=== PATIENT | female | born 1995 | race African-American/Black ===

== ENCOUNTER 2016-10-20 14:59 | Outpatient (CLI) | payer MEDICAID ==
--- NOTE | 2016-10-22 12:02 | Antepartum Discharge Summary ---
Antepartum DC Datetime Report Generated by CPN: 10/22/2016 12:00 DIET/ACTIVITY/RESTRICTIONS Diet: Regular (10/20/2016 15:52:Yenifer Camp, RNC) Activity: Normal Activity (10/20/2016 15:52:Yenifer Camp, RNC) Activity Restrictions: Nothing in Vagina - [place], Tampons, Douche (10/20/2016 15:52:Yenifer Camp, RNC) TEACHING/INSTRUCTIONS/REFERRALS Instructions Given To: patient and FOB (10/20/2016 15:52:Yenifer Camp, RNC) Instructions Understood: Patient Verbalized Understanding; Support Person Verbalized Understanding (10/20/2016 15:52:Yenifer Camp, RNC) Referrals: None (10/20/2016 15:52:Yenifer Dawkins, RNC) Educational Materials- Other: care notes reviewed and signed for kick counts (10/20/2016 15:52:Yenifer Camp, RNC) DISCHARGE INFORMATION Discharged AMA: No (10/20/2016 15:52:Yenifer Camp, RNC) Discharge Date/Time: 10/20/2016 15:45 (10/20/2016 15:52:Yenifer Camp, RNC) Discharged To: Home (10/20/2016 15:52:Yenifer Camp, RNC) Discharge Provider Name: Quentin Grey (10/20/2016 15:52:Yenifer Camp, RNC) Accompanied By: fob and daughter (10/20/2016 15:52:Yenifer Camp, RNC) Discharge Method: Ambulatory (10/20/2016 15:52:Yenifer Camp, RNC) Condition: Stable (10/20/2016 15:52:Yenifer Camp, RNC) FOLLOW UP INFORMATION Follow Up With: [facility] (10/20/2016 15:52:ANITA Granda) Follow Up On: As Scheduled (10/20/2016 15:52:ANITA Granda) Follow Up Phone Number: [facility] - (10/20/2016 15:52:ANITA Granda)
--- NOTE | 2016-10-22 12:02 | L&D Discharge Summary ---
OB Discharge Summary Datetime Report Generated by CPN: 10/22/2016 12:02 DISCHARGE DIAGNOSIS Diagnosis/Symptoms: Other Diagnoses/Symptoms Other: iup 34.1 twin gestation reactive NST Gestation: 34.1 Number of Babies in Womb: 2 Parity: 1 DIET/ACTIVITY/RESTRICTIONS Diet: Regular Activity: Normal Activity Activity Restrictions: Nothing in Vagina - [place], Tampons, Douche TEACHING/INSTRUCTIONS/REFERRALS Instructions Given To: patient and FOB Instructions Understood: Patient Verbalized Understanding; Support Person Verbalized Understanding Referrals: None Educational Materials- Other: care notes reviewed and signed for kick counts DISCHARGE INFORMATION Discharged AMA: No Discharge Date/Time: 10/20/2016 15:45 Discharged To: Home Discharge Provider Name: Quentin Grey Accompanied By: fob and daughter Discharge Method: Ambulatory Condition: Stable FOLLOW UP INFORMATION Follow Up With: [facility] Follow Up On: As Scheduled Follow Up Phone Number: [place] - Comments: Instructed patient to follow up as scheduled. Educated patient on how to do kick counts and to be evaluated if the babies aren't moving as much as normal. Patient verbalized understanding
--- NOTE | 2016-10-22 12:02 | L&D General Admission ---
General Admit Datetime Report Generated by CPN: 10/22/2016 12:01 INFORMATION Para: 1 (10/20/2016 15:52:Yenifer Camp, RNC) Baby, Number in Womb: 2 (10/20/2016 15:52:Yenifer Camp, RNC) CARE Height (in): 66 (10/20/2016 15:23:QS system process) Height (in): 66 (10/07/2016 15:45:QS system process) ALLERGIES Medication Allergies: No Known Allergies (10/20/2016) (10/20/2016 15:05:QS system process)
--- NOTE | 2016-10-22 12:02 | L&D Flow Sheet ---
LD Flowsheet Datetime Report Generated by CPN: 10/22/2016 12:01 Datetime: 10/20/2016 15:24 Provider Reviewed Strip: Yes (Yenifer Camp, RNC) Communication Communication: Provider Orders Received (Yenifer Camp, RNC) Communication Comments: H Que CNM on unit strip reviewed and noted as reactive. Discharge orders received (Yenifer Camp, RNC) Datetime: 10/20/2016 15:15 Patient Care I/O Interventions: Popsicle; Clear Liquids Given (Yenifer Camp, RNC) Datetime: 10/20/2016 15:14 NBP Sys/Janis/Mean (mmHg): 95 (QS system process) : 54 (QS system process) : 69 (QS system process) Pulse: 91 (QS system process) Respirations: 16 (Yenifer Camp, RNC) Temperature (F): 98.1 (Yenifer Camp, RNC) Temperature (C): 36.7 (QS system process) LaborFlag: Labor (QS system process) Datetime: 10/20/2016 15:09 Teaching Instructional Method: Demo; Verbal; Patient Instructed; Family/Support Person Instructed; Verbalized Understanding (ANITA Granda) Plan of Care: Plan of Care Discussed (ANITA Granda) Unit Routine: [place] to Room; Call [place]; Bed; Monitoring (ANITA Granda) Teaching Comments: poc for NST process, expected time requirement and outcomes discussed. Reviewed kick counts and history of movments and interventions to improve movement; adequate hydration, fno longer than 3 hours between meals and increased po and calorie intake requirements. Denies questions or concerns (ANITA Granda) Datetime: 10/20/2016 08:00 Vital Signs Stage of : Labor (Yenifer Camp, RNC)
--- NOTE | 2016-10-22 12:04 | Non Stress Test Report ---
Non Stress Test Datetime Report Generated by CPN: 10/22/2016 12:04 DEMOGRAPHIC EGA NST: 34.1 EGA NST: 32.2 INDICATION Indication for Study: Multiple Gestation MONITORING Monitor Explained: Monitor Explained; Test Explained; Patient Verbalized Understanding Time on Monitor: 10/20/2016 15:10 Time off Monitor: 10/20/2016 15:35 NST Duration: 25 NST Duration: 42 NST INTERVENTIONS NST Interventions: PO Hydration; Reposition Patient; Vibroacoustic Stim Physician Notified NST: Que, H BABY A: [id number] BABY A Movement : Present Contraction Frequency : irregular FHR Baseline : 135 Accelerations : 15X15 Decelerations : None Variability : Moderate 6-25bpm NST Review: Meets Criteria for Reactive NST NST Review and Verified By : CAMRON Martinez Results: Reactive BABY B Movement: Present FHR Baseline: 140 Accelerations: 15X15 Decelerations: None Variability: Moderate 6-25bpm NST Review: Meets Criteria for Reactive NST NST Results: Reactive NST COMMENTS NST Comments: care notes for kick counts reviewed and signed for kick counts NST REPORT Report Trigger: Send Report
--- NOTE | 2016-10-22 12:06 | Non Stress Test Report ---
Non Stress Test Datetime Report Generated by CPN: 10/22/2016 12:06 EGA NST: 34.1 Indication for Study: Multiple Gestation Monitor Explained: Monitor Explained; Test Explained; Patient Verbalized Understanding Time on Monitor: 10/20/2016 15:10 Time off Monitor: 10/20/2016 15:35 NST Duration: 25 NST Interventions: PO Hydration; Reposition Patient; Vibroacoustic Stim Physician Notified NST: Quentin Grey Movement : Present Contraction Frequency : irregular FHR Baseline : 135 Accelerations : 15X15 Decelerations : None Variability : Moderate 6-25bpm NST Review: Meets Criteria for Reactive NST NST Review and Verified By : Arthur Peng RN NST Results: Reactive Movement: Present FHR Baseline: 140 Accelerations: 15X15 Decelerations: None Variability: Moderate 6-25bpm NST Review: Meets Criteria for Reactive NST NST Results: Reactive NST Comments: care notes for kick counts reviewed and signed for kick counts Report Trigger: Send Report
--- NOTE | 2016-10-24 00:26 | Non Stress Test Report ---
Non Stress Test Datetime Report Generated by CPN: 10/24/2016 00:25 DEMOGRAPHIC EGA NST: 34.1 INDICATION Indication for Study: Multiple Gestation MONITORING Monitor Explained: Monitor Explained; Test Explained; Patient Verbalized Understanding Time on Monitor: 10/20/2016 15:10 Time off Monitor: 10/20/2016 15:35 NST Duration: 25 NST INTERVENTIONS NST Interventions: PO Hydration; Reposition Patient; Vibroacoustic Stim Physician Notified NST: Que, H BABY A Movement : Present Contraction Frequency : irregular FHR Baseline : 135 Accelerations : 15X15 Decelerations : None Variability : Moderate 6-25bpm NST Review: Meets Criteria for Reactive NST NST Review and Verified By : CAMRON Martinez Results: Reactive BABY B Movement: Present FHR Baseline: 140 Accelerations: 15X15 Decelerations: None Variability: Moderate 6-25bpm NST Review: Meets Criteria for Reactive NST NST Results: Reactive NST COMMENTS NST Comments: care notes for kick counts reviewed and signed for kick counts NST REPORT Report Trigger: Send Report
--- NOTE | 2016-10-24 04:49 | L&D Discharge Summary ---
OB Discharge Summary Datetime Report Generated by CPN: 10/24/2016 04:45 DISCHARGE DIAGNOSIS Diagnosis/Symptoms: Other Diagnoses/Symptoms Other: iup 34.1 twin gestation reactive NST Gestation: 35.4 Number of Babies in Womb: 2 Parity: 1 DIET/ACTIVITY/RESTRICTIONS Diet: Regular Activity: Normal Activity Activity Restrictions: Nothing in Vagina - Rico, Tampons, Douche TEACHING/INSTRUCTIONS/REFERRALS Instructions Given To: patient and FOB Instructions Understood: Patient Verbalized Understanding; Support Person Verbalized Understanding Referrals: None Educational Materials- Other: care notes reviewed and signed for kick counts DISCHARGE INFORMATION Discharged AMA: No Discharge Date/Time: 10/20/2016 15:45 Discharged To: Home Discharge Provider Name: Quentin Grey Accompanied By: fob and daughter Discharge Method: Ambulatory Condition: Stable FOLLOW UP INFORMATION Follow Up With: [facility] Follow Up On: As Scheduled Follow Up Phone Number: [facility] - Comments: Instructed patient to follow up as scheduled. Educated patient on how to do kick counts and to be evaluated if the babies aren't moving as much as normal. Patient verbalized understanding
== END 2016-10-20 15:45 | disposition home or self-care (01) ==
LOC: LC 14:59
PROVIDERS: ATTEND Obstetrics & Gynecology
PROC: 4A1HXCZ Monitoring of Products of Conception, Cardiac Rate, External Approach (ICD-10-PCS; principal; 2016-10-20)
DX: O30.003 Twin pregnancy, unspecified number of placenta and unspecified number of amniotic sacs, third trimester (principal); Z3A.34 34 weeks gestation of pregnancy
CPT/HCPCS: 59025

== ENCOUNTER 2016-10-24 00:21 | Inpatient (IN) | payer MEDICAID ==
[2016-10-24] MEDS ORDERED: PENICILLIN G-K 5 MILLION UNIT VIAL ONE (00:51)
[2016-10-24] MEDS ORDERED: MISOPROSTOL 0.2 MG TABLET ONE ×2 (00:51→01:07)
[2016-10-24] MEDS ORDERED: LIDOCAINE 1% INJ-PF (10 MG/ML) 30 ML SDV ONE ×2 (00:51→01:08)
[2016-10-24] MEDS ORDERED: OXYTOCIN/NORMAL SALINE 20 UNIT/1,000 ML RTUINJ ONE ×3 (00:52→02:35)
[2016-10-24] MEDS ORDERED: PENICILLIN G POTASSIUM 5,000,000 UNIT in DEXTROSE 5%-WATER 100 ML IV ONE (00:52)
[2016-10-24] MEDS ORDERED: PENICILLIN G-K 5 MILLION UNIT VIAL IV PRN ×2 (00:59→01:00)
[2016-10-24] MEDS: RINGERS SOLUTION,LACTATED 1,000 ML IV PRN ×2 (01:01→02:34)
[2016-10-24 01:03] LABS: APPEARANCE,URINE CLOUDY; BILIRUBIN,URINE NEGATIVE (NEGATIVE); GLUCOSE, URINE NEGATIVE (NEGATIVE); KETONES,URINE NEGATIVE (NEGATIVE); LEUKOCYTE ESTERASE,URINE TRACE (NEGATIVE); NITRITE,URINE NEGATIVE (NEGATIVE); PROTEIN,URINE NEGATIVE (NEGATIVE); URINE SPECIFIC GRAVITY 1.006; UROBILINOGEN,URINE NEGATIVE mg/dL (<2.0)
[2016-10-24] MEDS ORDERED: EPHEDRINE SULFATE INJ 50 MG/1 ML AMPULE ONE (01:07)
[2016-10-24] MEDS ORDERED: FENTANYL/BUPIVACAINE/NS/PF 200 MCG/100 ML RTUINJ EPI ONE (01:08)
[2016-10-24] MEDS ORDERED: BUPIVACAINE HCL 0.25 % INJ/PF (2.5 MG/1 ML) 30 ML VIAL ONE (01:08)
[2016-10-24 01:11] LABS: ABSOLUTE BASOPHILS # (AUTO) 0.1 10^3/uL (0.0-0.2); ABSOLUTE EOSINOPHILS # (AUTO) 0.1 10^3/uL (0.0-0.6); ABSOLUTE LYMPHOCYTES (AUTO) 2.5 10^3/uL (0.5-4.7); ABSOLUTE MONOCYTES (AUTO) 1.2 10^3/uL (0.1-1.4); ABSOLUTE NEUT (AUTO) 6.5 10^3/uL (1.7-8.2); BASOPHILS % (AUTO) 0.6 % (0-2); EOSINOPHILS % (AUTO) 0.6 % (0-6); HEMOGLOBIN 8.5 g/dL (12.0-15.5); HGB HCT DIFFERENCE -0.5; MEAN CORPUSCULAR HEMOGLOBIN 25.6 pg (27.0-33.4); MEAN CORPUSCULAR HGB CONC 32.9 g/dL (32.0-36.0); MEAN CORPUSCULAR VOLUME 78 fl (80-97); MONOCYTES % (AUTO) 11.3 % (3-13); RED BLOOD COUNT 3.33 10^6/uL (3.72-5.28); RED CELL DISTRIBUTION WIDTH 14.2 % (11.5-14.0); SEGMENTED NEUTROPHILS % (AUTO) 63.5 % (42-78); WHITE BLOOD COUNT 10.3 10^3/uL (4.0-10.5)
[2016-10-24] MEDS ORDERED: IBUPROFEN 800 MG TABLET ONE (02:35)
--- NOTE | 2016-10-24 03:17 | Delivery Summary ---
Del Sum A-C Datetime Report Generated by CPN: 10/24/2016 03:17 ADMISSION DATA Chief Complaint: Uterine Contractions; Suspected Ruptured Membranes Indication for Induction: Not Applicable Admission Impression: , Intrauterine ; Active Labor; Ruptured Membranes; Obstetrical Complication Admission Impression Comments: mono di twins Admit Provider Comments: Bowie Di twin males. Srom and active labor. GBS unknown for prophylaxis. Plan vaginal delivery DELIVERY PERSONNEL Delivery Doctor:: La Nena Boone MD Anesthesiologist:: Kaushal Gandhi MD REGIONAL AGRONOMIST:: Yoon Colmenares CRNA Labor and Delivery Nurse:: Martha Laughlin RNsign letterer Nurse:: Nilam Cary RN Nursery Nurse:: Samanta Mojica RN Nursery Nurse:: CAMRON Ninoub Tech/ASSISTANT STORE MANAGER OPERATIONS: [facility] [place] Professor Of Mathematics/ASSISTANT STORE MANAGER OPERATIONS: Nida Green, ST MATERNAL INFORMATION Delivery Anesthesia: Epidural Medications After Delivery: Pitocin Drip 20 Units/1000ml NSS; Other-Please Comment Meds After Delivery Comment: 0208- 1000 mcg cytotec per rectum Estimated Blood Loss (ml): 350 Maternal Complications: Precipitous Labor (<3hrs); Premature Rupture of Membranes Other Maternal Complications: premature labor Provider Comments: twin A male vtx twin B male vtx. no complications. twin B fht recorded continuously and follwed by sono for position. no complications. placenta spontaneously intact 3vc times 2 as single unit. infants to nicu for prematurity. LABOR SUMMARY EDC: 11/24/2016 00:00 No. Babies in Womb: 2 Attempted: No Labor Anesthesia: Epidural LABOR INFORMATION Reason for Induction: Not Applicable Onset of Labor: 10/23/2016 23:30 Complete Dilatation: 10/24/2016 01:45 Oxytocin: N/A Group B Beta Strep: unknown Antibiotics # of Doses: 1 Antibiotics Time of Last Dose: 005 Name of Antibiotic Given: Penicillin G Steroids Given: None Reason Steroids Not Administered: Not Applicable MEMBRANES Membranes Rupture Method: Spontaneous Rupture of Membranes: 10/23/2016 23:30 Length of Rupture (hr): 2.35 Amniotic Fluid Color: Clear Amniotic Fluid Amount: Small Amniotic Fluid Odor: Normal STAGES OF LABOR Stage 1 hr: 2 Stage 1 min: 15 Stage 2 hr: 0 Stage 2 min: 6 Stage 3 hr: 0 Stage 3 min: 13 Total Time in Labor hr: 2 Total Time in Labor min: 34 VAGINAL DELIVERY Episiotomy: None Laceration Extension: N/A Laceration Type: None Laceration Repair: Not Applicable Sponge Count Correct: Yes Sharps Count Correct: Yes CSECTION DELIVERY Primary Indication: N/A Secondary Indication: N/A BABY A INFORMATION Delivery Date/Time: 10/24/2016 01:51 Method of Delivery: Vaginal Born in Route : No : N/A Forceps: N/A Vacuum Extraction: N/A PRESENTATION/POSITION BABY A Presentation: Cephalic Cephalic Presentation: Vertex Vertex Position: Left Occipital Anterior Breech Presentation: N/A PLACENTA INFORMATION BABY A Placenta Delivery Time : 10/24/2016 02:04 Placenta Method of Delivery: Spontaneous Placenta Status: Delivered SCORES BABY A Heart Rate 1 min: >100 bpm Resp Effort 1 min: Good Cry Reflex Irritability 1 min: Grimace Muscle Tone 1 min: Some Flexion of Extremities Color 1 min: Body [place], Extremities Blue Resuscitation Effort 1 min: Tactile Stimulation SCORE 1 MIN: 7 Heart Rate 5 min: >100 bpm Resp Effort 5 min: Good Cry Reflex Irritability 5 min: Grimace Muscle Tone 5 min: Active Motion Color 5 min: Body [place], Extremities Blue SCORE 5 MIN: 8 INFANT INFORMATION BABY A Gestational Age at Delivery: 35.4 Gestational Status: Late - 34- 36.6 Weeks Outcome : Liveborn Condition : Stable Sex: Male IDENTIFICATION BABY A Verification Date/Time: 10/24/2016 01:55 ID Band Number: [id number] Mother's Name Verified: Yes Infant RN Verifying : ANITA Escobedo Additional Verifying Personnel: Huyen Cardona RN WEIGHT/LENGTH BABY A Infant Birthweight (gm): 2117 Infant Weight (lb): 4 Weight (oz): 11 Infant Length (in): 19.00 Infant Length (cm): 48.26 CORD INFORMATION BABY A No. Cord Vessels: 3 Nuchal Cord : N/A Cord Blood Taken: Yes-For Eval (Mom's Blood Type - or O+) Infant Suction: Mouth; Nose ASSESSMENT BABY A Infant Complications: Multiple Variable Decels Physical Findings at Delivery: Within Normal Limits Respirations: Appears Normal Skin to Skin: No Jewel Stripper/ALS Called : No Care By: CAMRON Mojica Transferred To: Nursery BABY B INFORMATION Delivery Date/Time: 10/24/2016 02:02 Method of Delivery : Vaginal Born in Route : No : N/A Forceps : N/A Vacuum Extraction: N/A Shoulder Dystocia : No SHOULDER DYSTOCIA BABY B Delivery Date/Time: 10/24/2016 02:02 PRESENTATION/POSITION BABY B Presentation : Cephalic Cephalic Position : Vertex Vertex Position: direct OP Breech Position: N/A ROM/PLACENTA INFO BABY B Rupture of Membranes: 10/24/2016 01:53 Length of Rupture (hr): 0.15 Placenta Delivery Time : 10/24/2016 02:04 Placenta Method of Delivery: Spontaneous Placental Status : Delivered SCORES BABY B Heart Rate 1 min: >100 bpm Resp Effort 1 min: Good Cry Reflex Irritability 1 min: Cough or Sneeze or Pulls Away Muscle Tone 1 min: Some Flexion of Extremities Color 1 min: Blue/Pale Resuscitation Effort 1 min: Tactile Stimulation SCORE 1 MIN: 7 Heart Rate 5 min: >100 bpm Resp Effort 5 min: Good Cry Reflex Irritability 5 min: Cough or Sneeze or Pulls Away Muscle Tone 5 min: Active Motion Color 5 min: Body [place], Extremities Blue Resuscitation Effort 5 min: Tactile Stimulation SCORE 5 MIN: 9 INFORMATION BABY B Gestational Age at Delivery: 35.4 Gestational Status : Late - 34- 36.6 Weeks Outcome : Liveborn Infant Condition : Stable Infant Sex : Male IDENTIFICATION BABY B Infant Verification Date/Time: 10/24/2016 02:05 ID Band Number : [id number] Mother's Name Verified: Yes RN Verifying Infant: R Raeann, RNC Additional Verifying Personnel: Huyen SommersCoinapultronny, RN WEIGHT/LENGTH BABY B Infant Birthweight (gm): 2280 Infant Weight (lb) : 5 Weight (oz): 0 Infant Length (in): 18.50 Length (cm): 46.99 CORD INFORMATION BABY B No. Cord Vessels : 3 Nuchal Cord : N/A Cord Blood Taken : Yes-For Eval (Mom's Blood Type -) Infant Suction : Mouth; Nose ASSESSMENT BABY B Complications : Multiple Variable Decels Physical Findings at Delivery: Within Normal Limits Respirations : Appears Normal Skin to Skin: No Jewel Stripper/ALS Called : No Infant Care By : CAMRON Padilla Transfer To: Nursery SIGNATURES Signature: with User ID: [email or web address]
[2016-10-24] MEDS ORDERED: ACETAMINOPHEN WITH CODEINE #3 TABLET PO PRN ×2 (03:41)
[2016-10-24] MEDS ORDERED: ZOLPIDEM TARTRATE 5 MG TABLET PO PRN (03:41)
[2016-10-24] MEDS ORDERED: MEASLES,MUMPS&RUBELLA VACC/PF 0.5 ML VIAL SUBCUT PRN (03:41)
[2016-10-24] MEDS ORDERED: OXYTOCIN/NORMAL SALINE 1,000 ML IV PRN (03:41)
[2016-10-24] MEDS ORDERED: DIBUCAINE 1% OINTMENT 28 GM TP PRN (03:41)
[2016-10-24] MEDS ORDERED: DIPH/PERTUSS(ACELL)/TETANUS VAC/PF 0.5 ML SYR (>=10YO) IM PRN (03:41)
[2016-10-24] MEDS ORDERED: BENZOCAINE/MENTHOL AEROSOL SPRAY 56 ML TOP PRN (03:41)
--- NOTE | 2016-10-24 04:37 | Admission Physical ---
Datetime Report Generated by CPN: 10/24/2016 04:37 CURRENT ADMISSION Hx Assessment: The History has been Reviewed and is Current Chief Complaint: Uterine Contractions; Suspected Ruptured Membranes Indication for Induction: Not Applicable Admit Impression- Other: mono di twins ALLERGIES Medication Allergies: No Medication Allergies: No Known Allergies (10/24/2016) Latex: No Latex Allergies Food Allergies: denies Environmental Allergies: denies OBSTETRICAL HISTORY EDC: 11/24/2016 00:00 : 2 Para: 1 Term: 1 : 0 SAB: 0 IAB: 0 Ectopic: 0 Livin Cesareans: 0 VBACs: 0 Gestational Diabetes: No Rh Sensitization: No Incompetent Cervix: No KIRA: No Infertility: No ART Treatment: No Uterine Anomaly: No IUGR: No Hx Previous C/S: No Macrosomia: No Hx Loss/Stillborn: No PIH: No Hx : No Placenta Previa/Abruption: No Depression/PP Depression: No PTL/PROM: Yes Post Hemorrhage: No Current Procedures: Ultrasound; NST Obstetrical History Comments: g1-Jul 2015, female, , precipitous delivery @ 37 weeks, one hour in labor, received iron transfusions g2- current , mono/di twins, PROM/PTL @ 35+4 weeks gestation SEE RECORDS Alcohol: No Marijuana : No Cocaine: No Other Illicit Drugs: No Cigarettes: Former Smoker. [id number] MEDICAL HISTORY Diabetes: No Blood Transfusion: No Pulmonary Disease (Asthma, TB): No Breast Disease: No Hypertension: No Clerk Surgery: No Heart Disease: No Hosp/Surgery: Yes Autoimmune Disorder: No Anesthetic Complications: No Kidney Disease: No Abnormal Pap Smear: No Neuro/Epilepsy: No Psychiatric Disorders: No Other Medical Diseases: Yes Hepatitis/Liver Disease: No Significant Family History: No Varicosities/Phlebitis: No Trauma/Violence : No Thyroid Dysfunction: No Medical History Comments: anemia received iron transfusion post delivery, x 1, with twins, INFECTIOUS HISTORY Gonorrhea: No Genital Herpes: No Chlamydia: No Tuberculosis: No Syphilis: No Hepatitis: No HIV/AIDS Exposure: No Rash or Viral Illness: No HPV: No PHYSICAL EXAM General: Normal HEENT: Deferred Neurologic: Deferred Thyroid: Deferred Heart: Normal Lungs: Normal Breast: Normal Back: Normal Abdomen: Normal Genitourinary Exam: Normal Extremities: Normal DTRs: Normal Pelvic Type: Adequate Vital Signs: Reviewed; Within Normal Limits VAGINAL EXAM Contraction Comments: q2-5 MEMBRANES Membranes: Ruptured FETUS A EGA: 35.4 FHR- Baseline: 140 Variability: Moderate 6-25bpm Accelerations: Absent Decelerations: None FHR Category: Category II FHR Comments: limited strip to interpret Presentation: Vertex Admit Comment: Nye Di twin males. Srom and active labor. GBS unknown for prophylaxis. Plan vaginal delivery FETUS B Monitoring: External US Variability: Moderate 6-25bpm Accelerations: none Decelerations: None FHR Category: Category II FHR Comments: limited strip to interpret Presentation: Vertex PLANS FOR LABOR AND DELIVERY Labor and Delivery: None Pain Management: Epidural Feeding Preference: Breast Benefit of Breast Feed Discussed: Yes Circumcision: Yes INFORMED CONSENT Signature: with User ID: [email or web address]
--- NOTE | 2016-10-24 04:48 | L&D General Admission ---
General Admit Datetime Report Generated by CPN: 10/24/2016 04:45 INFORMATION Patient Age: 20 (10/07/2016 14:36:QS system process) EDC: 11/24/2016 00:00 (10/07/2016 14:46:Nilam Cary RN) : 2 (10/07/2016 14:46:Melisa De Leon RN) Para: 1 (10/20/2016 15:52:ANITA Granda) Para: 1 (10/07/2016 16:01:Melisa De Leon RN) Para: 1 (10/07/2016 14:46:Melisa De Leon RN) Term: 1 (10/07/2016 14:46:ANITA Granda) : 0 (10/07/2016 14:46:ANITA Granda) Spontaneous Abortions: 0 (10/07/2016 14:46:ANITA Granda) Induced Abortions: 0 (10/07/2016 14:46:ANITA Granda) Livin (10/07/2016 14:46:Yenifer Dawkins [facility]) Cesareans: 0 (10/07/2016 14:46:Yenifer Dawkins [facility]) VBACs: 0 (10/07/2016 14:46:Yenifer Dawkins [facility]) Ectopic: 0 (10/07/2016 14:46:Yenifer Dawkins [facility]) Baby, Number in Womb: 2 (10/20/2016 15:52:Yenifer Dawkins [facility]) Baby, Number in Womb: 2 (10/07/2016 16:01:Melisa De Leon RN) CARE Primary Mutual Fund Accountant: [facility] (10/07/2016 14:46:ANITA Granda) Mutual Fund Accountant Other: Health Department (10/07/2016 14:46:Martha Laughlin RN) Adequate Care: No (10/07/2016 14:46:Martha Laughlin RN) Prepregnancy Weight (lb): 130 (10/07/2016 14:46:Martha Laughlin RN) Prepregnancy Weight (kg): 59.1 (10/07/2016 14:46:QS system process) Height (in): 68 (10/24/2016 04:35:QS system process) Height (in): 68 (10/24/2016 03:41:QS system process) Height (in): 66 (10/20/2016 15:23:QS system process) Height (in): 66 (10/07/2016 15:45:QS system process) ALLERGIES Medication Allergy: No (10/07/2016 14:46:Martha Laughlin RN) Medication Allergies: No Known Allergies (10/24/2016) (10/24/2016 03:41:QS system process) Medication Allergies: No Known Allergies (10/20/2016) (10/20/2016 15:05:QS system process) Medication Allergies: No Known Allergies (10/07/2016) (10/07/2016 15:36:QS system process) Latex Allergy: No Latex Allergies (10/07/2016 14:46:Martha Laughlin RN) Food Allergies: denies (10/07/2016 14:46:Martha Laughlin RN) Environmental Allergies: denies (10/07/2016 14:46:Martha Laughlin RN) COMMUNICATION Primary Language: Scottish (10/07/2016 14:46:Martha Laughlin RN) Medical Tx Preferred Language: Scottish (10/07/2016 14:46:Martha Laughlin RN) Scottish Communication Ability: Speaks Scottish; Reads Scottish (10/07/2016 14:46:Martha Laughlin RN) Communication Barrier(s): None (10/07/2016 14:46:Martha Laughlin RN) DEMOGRAPHICS Address: [address] [place] [id number] (10/07/2016 14:36:QS system process) Zipcode: [address] (10/07/2016 14:36:QS system process) Home (10/07/2016 14:36:QS system process) SSN: [id number] (10/07/2016 14:36:QS system process) Next of Kin Name: TIRSO MEJIA (10/07/2016 14:36:QS system process) Next of Kin (10/07/2016 14:36:QS system process) Next of Kin Relationship: MO (10/07/2016 14:36:QS system process) Date of : 1995 (10/07/2016 14:36:QS system process) Marital Status: Single (10/07/2016 14:36:QS system process) Sex: Female (10/07/2016 14:36:QS system process) Race: (10/07/2016 14:36:QS system process) Ethnicity: Non- or (10/07/2016 14:36:QS system process) Hindu: None (10/07/2016 14:36:QS system process) DRUG AND ALCOHOL USE Alcohol: No (10/07/2016 14:46:Martha Laughlin RN) Cigarettes: Former Smoker. [id number] (10/07/2016 14:46:Martha Laughlin RN) Marijuana: No (10/07/2016 14:46:Martha Laughlin RN) Cocaine: No (10/07/2016 14:46:Martha Laughlin RN) Other Illicit Drugs: No (10/07/2016 14:46:Martha Laughlin RN) VACCINE HISTORY Influenza Vaccine: Yes (10/07/2016 14:46:Martha Laughlin RN) Influenza Date: 2015 (10/07/2016 14:46:Martha Laughlin RN) Pneumococcal Vaccine: No (10/07/2016 14:46:Martha Laughlin RN) Tetanus Vaccine: Uncertain (10/07/2016 14:46:Martha Laughlin RN) Tdap Vaccine: Uncertain (10/07/2016 14:46:Martha Laughlin RN) Hepatitis B Vaccine: Yes (10/07/2016 14:46:Martha Laughlin RN) Chemical Equipment Controller: [facility] (10/07/2016 14:46:Martha Laughlin RN) Feeding Preference: Breast (10/07/2016 14:46:Martha Laughlin RN) Benefit of Breast Feed Discussed: Yes (10/07/2016 14:46:Martha Laughlin RN) Circumcision: Yes (10/07/2016 14:46:Martha Laughlin RN) Classes Attended: No (10/07/2016 14:46:Martha Laughlin RN) Tubal Ligation: No (10/07/2016 14:46:Martha Laughlin RN) Tubal Authorization Signed: N/A (10/07/2016 14:46:Martha Laughlin RN) Consent: N/A (10/07/2016 14:46:Martha Laughlin RN) Consent Signed: N/A (10/07/2016 14:46:Martha Laughlin RN) Pain Management Plans: Epidural (10/07/2016 14:46:Martha Laughlin RN) Plans for Labor and Delivery: None (10/07/2016 14:46:Martha Laughlin RN) Support Person: Sir (10/07/2016 14:46:Martha Laughlin RN) Support Person Relationship: (10/07/2016 14:46:Martha Laughlin RN) Cultural/Spritual Practice: No (10/07/2016 14:46:Martha Laughlin RN) Spir/Cult Dietary Needs: No (10/07/2016 14:46:Martha Laughlin RN) LIVING SITUATION/DISCHARGE PLAN Living Arrangements: House (10/07/2016 14:46:Martha Laughlin RN) Adequate Access to:: Electric; Heat; Refrigeration; Plumbing/Running water; Phone; Transportation (10/07/2016 14:46:Martha Laughlin RN) Discharge Manager Power Person: (10/07/2016 14:46:Martha Laughlin RN) Person to Help after Discharge: Sir (10/07/2016 14:46:Martha Laughlin RN) Currently Using Commun Resources: Yes (10/07/2016 14:46:Martha Laughlin RN) Specify Current Resource Used: medicaid (10/07/2016 14:46:Martha Laughlin RN) Outside Agency/Air Traffic Instructor: No (10/07/2016 14:46:Martha Laughlin RN) Car Seat for Discharge: Yes (10/07/2016 14:46:Martha Laughlin RN) Adoption Requested: No (10/07/2016 14:46:Martha Laughlin RN) Pt Contact w/infant Post : N/A (10/07/2016 14:46:Martha Laughlin RN) LABS Blood Type: O Positive (10/07/2016 14:46:Nilam Cary RN) Antibody Screen: negative (10/07/2016 14:46:Nilam Cary RN) Hemoglobin: 8.5 L (10/24/2016 00:56:QS system process) Hematocrit: 26.0 L (10/24/2016 00:56:QS system process) MCV: 78 L (10/24/2016 00:56:QS system process) Group Beta Strep: unknown (10/07/2016 14:46:Martha Laughlin RN) Gonorrhea: Negative (10/07/2016 14:46:Nilam Cary RN) Chlamydia: Negative (10/07/2016 14:46:Nilam Cary RN) RPR/VDRL: Nonreactive (10/07/2016 14:46:Nilam Cary RN) HIV Results: nonreactive (10/07/2016 14:46:Nilam Cary RN) Rubella: Non-Immune (10/07/2016 14:46:Nilam Cary RN) Varicella: Susceptible (10/07/2016 14:46:Nilam Cary RN) OB/PREVIOUS HISTORY Previous Procedures: Ultrasound; NST (10/07/2016 14:46:Martha Laughlin RN) Current Procedures: Ultrasound; NST (10/07/2016 14:46:Martha Laughlin RN) History of Previous : No (10/07/2016 14:46:Martha Laughlin RN) History of Gestational Diabetes: No (10/07/2016 14:46:Martha Laughlin RN) History of PIH: No (10/07/2016 14:46:Martha Laughlin RN) History of Incompetent Cervix: No (10/07/2016 14:46:Martha Laughlin RN) History of Placenta Previa/Abrup: No (10/07/2016 14:46:Martha Laughlin RN) History of Macrosomia: No (10/07/2016 14:46:Martha Laughlin RN) History of IUGR: No (10/07/2016 14:46:Martha Laughlin RN) History of Hemorrhage: No (10/07/2016 14:46:Martha Laughlin RN) History of Loss/Stillborn: No (10/07/2016 14:46:Martha Laughlin RN) History of : No (10/07/2016 14:46:Martha Laughlin RN) History of D (Rh) Sensitization: No (10/07/2016 14:46:Martha Laughlin RN) History Recurrent Loss/Stillborn: No (10/07/2016 14:46:Martha Laughlin RN) History Depression/PP Depression: No (10/07/2016 14:46:Martha Laughlin RN) History of Uterine Anomaly/KIRA: No (10/07/2016 14:46:Martha Laughlin RN) History of Infertility: No (10/07/2016 14:46:Martha Laughlin RN) History of ART Treatment: No (10/07/2016 14:46:Martha Laughlin RN) History of KIRA: No (10/07/2016 14:46:Martha Laughlin RN) Comments Obstetrical History: g1-Jul 2015, female, , precipitous delivery @ 37 weeks, one hour in labor, received iron transfusions g2- current , mono/di twins, PROM/PTL @ 35+4 weeks gestation (10/07/2016 14:46:Martha Laughlin RN) MEDICAL HISTORY Med Hx Diabetes: No (10/07/2016 14:46:Martha Laughlin RN) Med Hx Hypertension: No (10/07/2016 14:46:Martha Laughlin RN) Med Hx Heart Disease: No (10/07/2016 14:46:Martha Laughlin RN) Med Hx Autoimmune Disorder: No (10/07/2016 14:46:Martha Laughlin RN) Med Hx Kidney Disease/UTI: No (10/07/2016 14:46:Martha Laughlin RN) Med Hx Neurologic/Epilepsy: No (10/07/2016 14:46:Martha Laughlin RN) Med Hx Psychiatric Disorders: No (10/07/2016 14:46:Martha Laughlin RN) Med Hx Hepatitis/Liver Disease: No (10/07/2016 14:46:Martha Laughlin RN) Med Hx Varicosities/Phlebitis: No (10/07/2016 14:46:Martha Laughlin RN) Med Hx Thyroid Dysfunction: No (10/07/2016 14:46:Martha Laughlin RN) Med Hx Trauma/Violence: No (10/07/2016 14:46:Martha Laughlin RN) Med Hx Blood Transfusion: No (10/07/2016 14:46:Martha Laughlin RN) Med Hx Pulmonary (Asthma,TB): No (10/07/2016 14:46:Martha Laughlin RN) Med Hx Breast: No (10/07/2016 14:46:Martha Laughlin RN) Med Hx SR. MANAGER Surgery: No (10/07/2016 14:46:Martha Laughlin RN) Med Hx Hospitalization/Surgery: Yes (10/07/2016 14:46:Martha Laughlin RN) Med Hx Anesthetic Complications: No (10/07/2016 14:46:Martha Laughlin RN) Med Hx Abnormal Pap Smear: No (10/07/2016 14:46:Martha Laughlin RN) Other Medical Diseases: Yes (10/07/2016 14:46:Martha Laughlin RN) Med Hx Significant Family Hx: No (10/07/2016 14:46:Martha Laughlin RN) Details of Med/Surg Hx: anemia received iron transfusion post delivery, x 1, with twins, (10/07/2016 14:46:Martha Laughlin RN) INFECTIOUS HISTORY Inf Hx Gonorrhea: No (10/07/2016 14:46:Martha Laughlin RN) Inf Hx Chlamydia: No (10/07/2016 14:46:Martha Laughlin RN) Inf Hx Syphilis: No (10/07/2016 14:46:Martha Laughlin RN) Inf Hx HIV/AIDS: No (10/07/2016 14:46:Martha Laughlin RN) Inf Hx Human Papilloma Virus: No (10/07/2016 14:46:Martha Laughlin RN) Inf Hx Pt/Partner Genital Herpes: No (10/07/2016 14:46:Martha Laughlin RN) Inf Hx Tuberculosis/Exposure: No (10/07/2016 14:46:Martha Laughlin RN) Inf Hx Hepatitis B,C: No (10/07/2016 14:46:Martha Laughlin RN) Inf Hx Rash or Viral Illness: No (10/07/2016 14:46:Martha Laughlin RN) GENETIC HISTORY Gen Hx Age >=35 at AUDREY: No (10/07/2016 14:46:Martha Laughlin RN) Gen Hx Thalassemia: No (10/07/2016 14:46:Martha Laughlin RN) Gen Hx Congenital Heart Defect: No (10/07/2016 14:46:Martha Laughlin RN) Gen Hx Neural Tube Defect: No (10/07/2016 14:46:Martha Laughlin RN) Gen Hx Down's Syndrome: No (10/07/2016 14:46:Martha Laughlin RN) Gen Hx James-Sachs: No (10/07/2016 14:46:Martha Laughlin RN) Gen Hx Richard: No (10/07/2016 14:46:Martha Laughlin RN) Gen Hx Familial Dysautonomia: No (10/07/2016 14:46:Martha Laughlin RN) Gen Hx Sickle Cell Disease/Trait: No (10/07/2016 14:46:Martha Laughlin RN) Gen Hx Hemophilia/Blood Disorder: No (10/07/2016 14:46:Martha Laughlin RN) Gen Hx Muscular Dystrophy: No (10/07/2016 14:46:Martha Laughlin RN) Gen Hx Cystic Fibrosis: No (10/07/2016 14:46:Martha Laughlin RN) Gen Hx Huntingtons Chorea: No (10/07/2016 14:46:Martha Laughlin RN) Gen Hx Mental Retardation/Autism: No (10/07/2016 14:46:Martha Laughlin RN) Gen Hx Tested for Fragile X: No (10/07/2016 14:46:Martha Laughlin RN) Gen Hx Other Inher/Chromosomal: No (10/07/2016 14:46:Martha Laughlin RN) Gen Hx Maternal Metabolic DO: No (10/07/2016 14:46:Martha Laughlin RN) Gen Hx Pt Father or FOB Defect: No (10/07/2016 14:46:Martha Laughlin RN) Gen Hx Other Genetic History: No (10/07/2016 14:46:Martha Laughlin RN) Gen Hx Drugs/Meds since LMP: Yes (10/07/2016 14:46:Martha Laughlin RN) Gen Hx Medications: tylenol, vitamins, iron (10/07/2016 14:46:Martha Laughlin RN)
--- NOTE | 2016-10-24 04:48 | L&D Flow Sheet ---
LD Flowsheet Datetime Report Generated by CPN: 10/24/2016 04:45 Datetime: 10/24/2016 04:01 NBP Sys/Janis/Mean (mmHg): 137 (QS system process) : 63 (QS system process) : 90 (QS system process) Pulse: 75 (QS system process) Respirations: 16 (Martha Laughlin RN) Temperature (F): 100.0 (Martha Laughlin RN) Temperature (C): 37.8 (QS system process) Temperature Route: Oral (Martha Laughlin RN) Pain Scale: 0 (Martha Laughlin RN) Pain Presence: None/Denies (Martha Laughlin RN) Pain Type: N/A (Martha Laughlin RN) Datetime: 10/24/2016 03:48 NBP Sys/Janis/Mean (mmHg): 135 (QS system process) : 56 (QS system process) : 88 (QS system process) Pulse: 64 (QS system process) Datetime: 10/24/2016 03:33 NBP Sys/Janis/Mean (mmHg): 133 (QS system process) : 63 (QS system process) : 91 (QS system process) Pulse: 68 (QS system process) Datetime: 10/24/2016 03:18 NBP Sys/Janis/Mean (mmHg): 148 (QS system process) : 65 (QS system process) : 93 (QS system process) Pulse: 97 (QS system process) Datetime: 10/24/2016 03:03 NBP Sys/Janis/Mean (mmHg): 132 (QS system process) : 60 (QS system process) : 87 (QS system process) Pulse: 82 (QS system process) Respirations: 16 (Martha Laughlin, RN) Datetime: 10/24/2016 02:48 NBP Sys/Janis/Mean (mmHg): 134 (QS system process) : 61 (QS system process) : 88 (QS system process) Pulse: 100 (QS system process) Datetime: 10/24/2016 02:45 Stage of : Recovery (Martha Kossmann, RN) Datetime: 10/24/2016 02:44 NBP Sys/Janis/Mean (mmHg): 150 (QS system process) : 62 (QS system process) : 89 (QS system process) Pulse: 102 (QS system process) Datetime: 10/24/2016 02:30 Epidural Procedure Other: Cath Removed; Cath Intact (Martha Kossmann, RN) Datetime: 10/24/2016 02:19 NBP Sys/Janis/Mean (mmHg): 117 (QS system process) : 72 (QS system process) : 92 (QS system process) Pulse: 151 (QS system process) Datetime: 10/24/2016 02:15 Stage of : Recovery (Martha Laughlin RN) Pain Scale: 2 (Martha Laughlin RN) Pain Presence: Constant (Martha Laughlin RN) Pain Type: Ache (Martha Laughlin RN) Pain Location: Neck (Martha Laughlin RN) Pain Relief Measures: Comfort Measures (Annotations: heat pack to neck) (Martha Laughlin RN) Patient Care Comments: Patient arrived back in room from OR post delivery recovery started (aMrtha Laughlin RN) Datetime: 10/24/2016 02:02 Comments: delivery of viable baby boy (baby b), cord clamped and cut per protocol. infant immediately transfered to [facility] for evaluation (Martha Laughlin RN) Datetime: 10/24/2016 02:00 Monitor Mode: External US (Martha Matthieusmann, RN) FHR Baseline Rate : 155 (Martha Matthieusmann, RN) Variability: Moderate 6-25 bpm (Martha Kossmann, RN) Accelerations: None (Martha Kossmann, RN) Decelerations: Variable (Martha Kossmann, RN) Datetime: 10/24/2016 01:55 Monitor Mode: Palpation (Martha Matthieusmann, RN) Frequency (min): 2-3 (Martha Matthieusmann, RN) Quality: Strong (Martha Matthieusmann, RN) Duration (sec): 40-60 (Martha Kossmann, RN) Resting Tone (Palpate): Relaxed (Martha Matthieusmann, RN) Comments: ultrasound showed vertex position for baby b, ultrasound showed heart rate in the 140s (Martha Matthieusmann, RN) Datetime: 10/24/2016 01:51 Comments: delivery of viable male (baby a), cord clamped and cut per protocol. infant transfered immediately to [facility] for evaluation by nursery staff (Martha Laughlin RN) Datetime: 10/24/2016 01:50 Monitor Mode: External; Palpation (Martha Laughlin RN) Frequency (min): 1-2 (Martha Laughlin RN) Quality: Strong (Martha Laughlin RN) Duration (sec): 40-70 (Martha Laughlin RN) Resting Tone (Palpate): Relaxed (Martha Laughlin RN) Contraction Comments: pushing with contractions with coaching by staffing mgr and provider (Martha Laughlin RN) Monitor Mode: External US (Martha Laughlin RN) FHR Baseline Rate : 135 (Martha Laughlin RN) Variability: Moderate 6-25 bpm (Martha Laughlin RN) Decelerations: Variable (Martha Laughlin RN) Monitor Mode: External US (Martha Laughlin RN) FHR Baseline Rate : 125 (Martha Laughlin RN) Variability: Moderate 6-25 bpm (Martha Laughlin RN) Accelerations: 10X10 (Martha Laughlin RN) Decelerations: None (Martha Kossmann, RN) Datetime: 10/24/2016 01:45 Dilatation (cm): 10.0 (Martha Matthieusmann, RN) Effacement (%): 100 (Martha Kossmann, RN) Station: 3 (Martha Matthieusmann, RN) Exam by: Dr. Boone (Martha Kossmann, RN) Datetime: 10/24/2016 01:40 IV/Blood Work: New IV Bag Hung (Nilam Raeann, RN) Datetime: 10/24/2016 01:37 Additional Nursing Comments: Transferred to OR via bed. (Nilam Cary RN) Datetime: 10/24/2016 01:34 Monitor Mode: External (Hollie Emeka, RN) Frequency (min): 1-2 (Hollie Emeka, RN) Quality: Moderate to Strong (Hollie Emeka, RN) Duration (sec): 40-70 (Hollie Emeka, RN) Duration Criteria: Less than Two 120 Second Contractions (Hollie Emeka, RN) Pattern: Normal: <= 5 Contractions in 10 Minutes (Hollie Emeka, RN) Resting Tone (Palpate): Relaxed (Hollie Emeka, RN) Monitor Mode: External US (Hollie Emeka, RN) FHR Baseline Rate : 140 (Hollie Emeka, RN) Variability: Moderate 6-25 bpm (Hollie Emeka, RN) Accelerations: 10X10 (Hollie Emeka, RN) Decelerations: Variable (Hollie Emeka, RN) Patient Care Comments: To OR for imminent delivery (Martha Laughlin RN) Datetime: 10/24/2016 01:33 NBP Sys/Janis/Mean (mmHg): 104 (QS system process) : 56 (QS system process) : 72 (QS system process) Pulse: 100 (QS system process) LaborFlag: Labor (QS system process) Datetime: 10/24/2016 01:32 NBP Sys/Janis/Mean (mmHg): 114 (QS system process) : 58 (QS system process) : 79 (QS system process) Pulse: 89 (QS system process) LaborFlag: Labor (QS system process) Datetime: 10/24/2016 01:24 Epidural Procedure: Loading Dose (Martha Laughlin, RN) Epidural Procedure Other: Pump Started (Marthadharmesh Laughlin, RN) Datetime: 10/24/2016 01:23 Epidural Procedure: Cath Placed (Martha Matthieusmann, RN) Datetime: 10/24/2016 01:22 Pulse: 87 (QS system process) SpO2 (%): 91 (QS system process) Epidural Procedure: Cath Placed (Martha Kossmann, RN) LaborFlag: Labor (QS system process) Datetime: 10/24/2016 01:21 Pulse: 83 (QS system process) SpO2 (%): 100 (QS system process) LaborFlag: Labor (QS system process) Datetime: 10/24/2016 01:16 Pulse: 86 (QS system process) Pulse: 83 (QS system process) SpO2 (%): 94 (QS system process) SpO2 (%): 91 (QS system process) Procedure Verify: Correct Patient Identity; Correct Side and Site are Marked; Accurate Procedure Consent Form; Agreement on Procedure to be Done; Correct Patient Position (Martha Laughlin RN) Anesthesia Plans: Epidural (Martha Laughlin RN) Epidural Positioning: Sitting (Martha Laughlin RN) LaborFlag: Labor (QS system process) Datetime: 10/24/2016 01:15 Monitor Mode: External (Hollie Emeka, RN) Frequency (min): 1.5-2 (Hollie Emeka, RN) Quality: Moderate to Strong (Hollie Emeka, RN) Duration (sec): 40-50 (Hollie Emeka, RN) Duration Criteria: Less than Two 120 Second Contractions (Hollie Emeka, RN) Pattern: Normal: <= 5 Contractions in 10 Minutes (Hollie Emeka, RN) Resting Tone (Palpate): Relaxed (Hollie Emeka, RN) Anesthesia Comments: pt. sitting up for epidural (Hollie Emeka, RN) Datetime: 10/24/2016 01:14 Monitor Mode: External US (Hollie Emeka, RN) FHR Baseline Rate : 145 (Hollie Emeka, RN) Variability: Moderate 6-25 bpm (Hollie Emeka, RN) Accelerations: None (Hollie Emeka, RN) Decelerations: None (Hollie Emeka, RN) Procedure Type: epidiural (Martha Laughlin, RN) Anesthesia Comments: hiram at bedside, time out performed (Martha Laughlin, RN) Datetime: 10/24/2016 01:12 Dilatation (cm): 8.0 (Martha Qian, RN) Effacement (%): 90 (Marthadharmesh Laughlin, RN) Station: 0 (Marthadharmesh Laughlin, RN) Exam by: Dr. Boone (Martha Laughlin, RN) Datetime: 10/24/2016 01:10 NBP Sys/Janis/Mean (mmHg): 113 (QS system process) : 56 (QS system process) : 76 (QS system process) Pulse: 83 (QS system process) LaborFlag: Labor (QS system process) Datetime: 10/24/2016 01:08 Monitor Mode: External (Hollie Emeka, RN) Frequency (min): 1.5-2 (Hollie Emeka, RN) Quality: Moderate to Strong (Hollie Emeka, RN) Duration (sec): 40-50 (Hollie Emeka, RN) Duration Criteria: Less than Two 120 Second Contractions (Hollie Emeka, RN) Pattern: Normal: <= 5 Contractions in 10 Minutes (Hollie Emeka, RN) Resting Tone (Palpate): Relaxed (Hollie Emeka, RN) Monitor Mode: External US (Hollie Emeka, RN) FHR Baseline Rate : 145 (Hollie Emeka, RN) Variability: Moderate 6-25 bpm (Hollie Emeka, RN) Accelerations: None (Hollie Emeka, RN) Decelerations: None (Hollie Emeka, RN) Datetime: 10/24/2016 01:04 Anesthesia Comments: Dr Hiram notified and requested for epidural (Martha Kossmann, RN) Datetime: 10/24/2016 00:59 Antibiotics: Penicillin IV (Units) @ 5 million units (Hollie Emeka, RN) Datetime: 10/24/2016 00:58 IV/Blood Work: IV Bolus Started; IV Infusing per Order (Hollie Emeka, RN) Datetime: 10/24/2016 00:55 NBP Sys/Janis/Mean (mmHg): 104 (QS system process) : 54 (QS system process) : 74 (QS system process) Pulse: 73 (QS system process) Level of Consciousness: Fully Conscious (Martha Laughlin, CAMRON) DTR's/Clonus: DTRs 2+; No Clonus (Martha Luaghlin, CAMRON) Headache: Denies (Martha Laughlin, CAMRON) Breath Sounds, Left: Clear and Equal (Martha Laughlin RN) Breath Sounds, Right: Clear and Equal (Martha Laughlin, CAMRON) Nausea/Vomiting: Denies (Martha Laughlin RN) RUQ Epigastric Pain: Denies (Martha Laughlin RN) LaborFlag: Labor (QS system process) Datetime: 10/24/2016 00:50 Communication Comments: Dr. Boone notified of imminent delivery (Martha Laughlin, CAMRON) Datetime: 10/24/2016 00:45 Dilatation (cm): 5.0 (Martha Laughlin RN) Effacement (%): 90 (Martha Laughlin RN) Station: 0 (Martha Laughlin RN) Exam by: CAMRON Laughlin (Martha Laughlin RN)
--- NOTE | 2016-10-24 04:48 | L&D Current Admission ---
Current Admit Datetime Report Generated by CPN: 10/24/2016 04:45 ADMISSION INFORMATION Current Admit Date/Time: 10/24/2016 00:54 (10/24/2016 00:54:Martha Laughlin RN) Reason for Admission: Rupture of Membranes (10/24/2016 00:54:Martha Laughlin RN) Other Reason for Admission: [place]/Di twins vertex/vertex SROM @ 2330 (10/24/2016 00:54:Martha Laughlin RN) Chief Complaint: Suspected Rupture of Membranes (10/24/2016 00:54:Martha Laughlin RN) Medications During : Ferrous Sulfate (Iron); Vitamin; Acetaminophen (Tylenol) (10/24/2016 00:54:Martha Laughlin RN) EGA per Dates: 35.4 (10/24/2016 00:54:QS system process) Method of Arrival: Wheelchair (10/24/2016 00:54:Martha Laughlin RN) Admitted From: Home (10/24/2016 00:54:Martha Laughlin RN) Reason for Induction: Not Applicable (10/24/2016 00:54:Martha Laughlin RN) Records Available: Yes (10/24/2016 00:54:Martha Laughlin RN) General Admission Information: Reviewed (10/24/2016 00:54:Martha Laughlin RN) General Admission Reviewed By: CAMRON Laughlin (10/24/2016 00:54:Martha Laughlin RN) BELONGINGS/ADVANCED DIRECTIVES Other Belongings: see valuable consents (10/24/2016 00:54:Martha Laughlin RN) Disposition of Belongings: Kept with Patient (10/24/2016 00:54:Martha Laughlin RN) Advance Direct for Healthcare: No, and Wants No Information (10/24/2016 00:54:Martha Laughlin RN) Durable Power of Returning Officer: No (10/24/2016 00:54:Martha Laughlin RN) Living Will: No (10/24/2016 00:54:Martha Laughlin RN) Organ Donor: Yes (10/24/2016 00:54:Martha Laughlin RN) Pt Rights Information Given: Yes (10/24/2016 00:54:Martha Laughlin RN) Pt Understands Pt Rights: Yes (10/24/2016 00:54:Martha Laughlin RN) Patient Rights Comments: Given in patient access (10/24/2016 00:54:Martha Laughlin RN) LEARNING ASSESSMENT Knowledge Level: Understands L_D Process; Understands Care Activities; Had Pre-Hospital Education; Understands Diagnosis (10/24/2016 00:54:Martha Laughlin RN) Barriers to Learning: Pain (10/24/2016 00:54:Martha Laughlin RN) Learning Readiness: Motivated (10/24/2016 00:54:Martha Laughlin RN) Learns Best By: 1 to 1 Instruction; Reading; Videos; Group Discussion; Demonstration (10/24/2016 00:54:Martha Laughlin RN) Learning Needs: Labor and Delivery Process; Pain Management; Symptoms to Report; Treatment Plan; Medication; Diagnosis; Nutrition; Equipment; Care; Community Resources (10/24/2016 00:54:Martha Laughlin RN) DOMESTIC VIOLANCE SCREENING Dom Viol Threatened/Hurt: No (10/24/2016 00:54:Martha Laughlin RN) Hx of Abuse/Neglect past 2yrs: No (10/24/2016 00:54:Martha Laughlin RN) Feel Unsafe Going Home: No (10/24/2016 00:54:Martha Laughlin RN) Addt'l Observ Indicating Abuse: No (10/24/2016 00:54:Martha Laughlin RN) Reason Unable to Complete Screen: No Opportunity to Talk Privately (10/24/2016 00:54:Martha Laughlin RN) Considered Personal Harm/Suicide: No (10/24/2016 00:54:Martha Laughlin RN) NUTRITIONAL/FUNCTIONAL SCREENING Problem with Appetite >5 Days: No (10/24/2016 00:54:Martha Laughlin RN) Chew/Swallow Difficulties: No (10/24/2016 00:54:Martha Laughlin RN) Inappropriate Wt Gain/Loss: No (10/24/2016 00:54:Martha Laughlin RN) Presence Skin Breakdown/Ulcer: No (10/24/2016 00:54:Martha Laughlin RN) Special Diet: No (10/24/2016 00:54:Martha Laughlin RN) Pt Requests Banking 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 Visit: No (10/24/2016 00:54:Martha Laughlin RN) Hx of Any of the Following?: N/A (10/24/2016 00:54:Martha Laughlin RN) New Diagnosis of: N/A (10/24/2016 00:54:Martha Laughlin RN) Requires Assist w/Ambulation: No (10/24/2016 00:54:Martha Laughlin RN) Uses Assist Device to Ambulate: No (10/24/2016 00:54:Martha Laughlin RN) Pt Requires Help w/ADL's: No (10/24/2016 00:54:Martha Laughlin RN)
--- NOTE | 2016-10-24 04:49 | L&D Admission Assessment ---
LD ADM ASMT Datetime Report Generated by CPN: 10/24/2016 04:45 Assessment Type: Admission Assessment (10/24/2016 00:55:Martha Laughlin RN) Weight (lb): 145 (10/24/2016 03:41:QS system process) Weight (kg): 65.9 (10/24/2016 03:41:QS system process) Total Wt Gain (lb): 15 (10/24/2016 03:41:QS system process) Wt Gain (kg): 6.9 (10/24/2016 03:41:QS system process) BMI: 23.4 (10/24/2016 03:41:QS system process) Pain Scale: 0 (10/24/2016 04:01:Martha Laughlin RN) Pain Scale: 2 (10/24/2016 02:15:Martha Laughlin RN) Pain Presence: None/Denies (10/24/2016 04:01:Martha Laughlin RN) Pain Presence: Constant (10/24/2016 02:15:Martha Laughlin RN) Pain Type: N/A (10/24/2016 04:01:Martha Laughlin RN) Pain Type: Ache (10/24/2016 02:15:Martha Laughlin RN) Pain Location: Neck (10/24/2016 02:15:Martha Laughlin RN) Frequency (min): 2-3 (10/24/2016 01:55:Martha Laughlin RN) Frequency (min): 1-2 (10/24/2016 01:50:Martha Laughlin RN) Frequency (min): 1-2 (10/24/2016 01:34:Hollie Emeka, RN) Frequency (min): 1.5-2 (10/24/2016 01:15:Hollie Emeka, RN) Frequency (min): 1.5-2 (10/24/2016 01:08:Hollie Emeka, RN) Duration (sec): 40-60 (10/24/2016 01:55:Martha Laughlin, RN) Duration (sec): 40-70 (10/24/2016 01:50:Martha Laughlin, RN) Duration (sec): 40-70 (10/24/2016 01:34:Hollie Emeka, RN) Duration (sec): 40-50 (10/24/2016 01:15:Hollie Emeka, RN) Duration (sec): 40-50 (10/24/2016 01:08:Hollie Emeka, RN) Quality: Strong (10/24/2016 01:55:Martha Laughlin RN) Quality: Strong (10/24/2016 01:50:Martha Laughlin, RN) Quality: Moderate to Strong (10/24/2016 01:34:Hollie Emeka, RN) Quality: Moderate to Strong (10/24/2016 01:15:Hollie Emeka, RN) Quality: Moderate to Strong (10/24/2016 01:08:Hollie Emeka, RN) Pattern: Normal: <= 5 Contractions in 10 Minutes (10/24/2016 01:34:Hollie Emeka, RN) Pattern: Normal: <= 5 Contractions in 10 Minutes (10/24/2016 01:15:Hollie Emeka, RN) Pattern: Normal: <= 5 Contractions in 10 Minutes (10/24/2016 01:08:Hollie Emeka, RN) Resting Tone [place]: Relaxed (10/24/2016 01:55:Martha Laughlin, RN) Resting Tone [place]: Relaxed (10/24/2016 01:50:Martha Laughlin, RN) Resting Tone [place]: Relaxed (10/24/2016 01:34:Hollie Emeka, RN) Resting Tone [place]: Relaxed (10/24/2016 01:15:Hollie Emeka, RN) Resting Tone [place]: Relaxed (10/24/2016 01:08:Hollie Hendrickson RN) Contraction Comments: pushing with contractions with coaching by social staff worker and provider (10/24/2016 01:50:Martha Laughlin RN) Dilatation (cm): 10.0 (10/24/2016 01:45:Martha Laughlin RN) Dilatation (cm): 8.0 (10/24/2016 01:12:Martha Laughlin RN) Dilatation (cm): 5.0 (10/24/2016 00:45:Martha Laughlin RN) Effacement (%): 100 (10/24/2016 01:45:Martha Laughlin RN) Effacement (%): 90 (10/24/2016 01:12:Martha Laughlin RN) Effacement (%): 90 (10/24/2016 00:45:Martha Laughlin RN) Station: 3 (10/24/2016 01:45:Martha Laughlin RN) Station: 0 (10/24/2016 01:12:Martha Laughlin RN) Station: 0 (10/24/2016 00:45:Martha Laughlin RN) Level of Consciousness: Fully Conscious (10/24/2016 00:55:Martha Laughlin RN) DTR's/Clonus: DTRs 2+; No Clonus (10/24/2016 00:55:Martha Laughlin RN) Headache: Denies (10/24/2016 00:55:Martha Laughlin RN) Dizziness: No (10/24/2016 00:55:Martha Laughlin RN) Blurred Vision: No (10/24/2016 00:55:Martha Laughlin RN) Extremity Numbness/Tingling : None (10/24/2016 00:55:Martha Laughlin RN) Extremity Movement: Full Range of Motion (10/24/2016 00:55:Martha Laughlin RN) Heart Rhythm: Regular (10/24/2016 00:55:Martha Laughlin RN) Nailbeds: [place] (10/24/2016 00:55:Martha Laughlin RN) Capillary Refill: Less than 3 Seconds (10/24/2016 00:55:Martha Laughlin RN) Lower Extremities Edema: None (10/24/2016 00:55:Martha Laughlin RN) Lower Extremities Edema Degree: None (10/24/2016 00:55:Martha Laughlin RN) Upper Extremities Edema: None (10/24/2016 00:55:Martha Laughlin RN) Upper Extremities Edema Degree: None (10/24/2016 00:55:Martha Laughlin RN) Facial Edema: None (10/24/2016 00:55:Martha Laughlin RN) Gypsy's Sign Left Leg: Negative (10/24/2016 00:55:Martha Laughlin RN) Gypsy's Sign Right Leg: Negative (10/24/2016 00:55:Martha Laughlin RN) DVT Risk Age: Age less than 41 years (10/24/2016 00:55:Martha Laughlin RN) DVT Risk BMI: BMI<31 (10/24/2016 00:55:Martha Laughlin RN) DVT Risk Surgery: None Applicable (10/24/2016 00:55:Martha Laughlin RN) DVT Risk Other: Women Only- or (<1 month) (10/24/2016 00:55:Martha Laughlin RN) DVT Risk Total: 1 (10/24/2016 00:55:QS system process) DVT Risk Text: Low Risk (<10%) No specific measures, early ambulation (10/24/2016 00:55:QS system process) Respiratory Effort: Unlabored; Regular Rhythm; Equal Expansion (10/24/2016 00:55:Martha Laughlin RN) Breath Sounds, Left: Clear and Equal (10/24/2016 00:55:Martha Laughlin RN) Breath Sounds, Right: Clear and Equal (10/24/2016 00:55:Martha Laughlin RN) Cough Productivity: None (10/24/2016 00:55:Martha Laughlin RN) Nausea/Vomiting: Denies (10/24/2016 00:55:Matrha Laughlin RN) Bowel Sounds: Normoactive; All Quadrants (10/24/2016 00:55:Martha Laughlin RN) RUQ Epigastric Pain: Denies (10/24/2016 00:55:Martha Laughlin RN) Bowel Patterns: Soft, Formed Stool (10/24/2016 00:55:Martha Laughlin RN) Hemorrhoids: None (10/24/2016 00:55:Martha Laughlin RN) Diet Type: Regular diet (10/24/2016 00:55:Martha Laughlin RN) Bladder: Nondistended (10/24/2016 00:55:Martha Laughlin RN) Frequency of Urination: No (10/24/2016 00:55:Martha Laughlin RN) Urination Burning: No (10/24/2016 00:55:Martha Laughlin RN) CVA Tenderness: No (10/24/2016 00:55:Martha Laughlin RN) Vaginal Discharge Amount: Small (10/24/2016 00:55:Martha Laughlin RN) Vaginal Discharge Color: White (10/24/2016 00:55:Martha Laughlin RN) Vaginal Discharge Odor: Non-Odorous (10/24/2016 00:55:Martha Laughlin RN) Vaginal Discharge Character: Watery (10/24/2016 00:55:Martha Laughlin RN) Skin Color: Normal for Race (10/24/2016 00:55:Martha Laughlin RN) Skin Temperature: Warm (10/24/2016 00:55:Martha Laughlin RN) Skin Moisture: Dry (10/24/2016 00:55:Martha Laughlin RN) Murphy Scale Sensory Perception: No Impairment- Responds to verbal commands. Has no sensory deficit which would limit ability to feel or voice pain or discomfort (10/24/2016 00:55:Martha Laughlin RN) Murphy Scale Moisture: Rarely Moist- Skin is usually dry. Linen only requires changing at routine intervals (10/24/2016 00:55:Martha Laughlin RN) Murphy Scale Activity: Walks Frequently- Walks outside the room at least twice a day and inside room at least every 2 hours during the day. (10/24/2016 00:55:Martha Laughlin RN) Murphy Scale Mobility: No Limitations- Makes major and frequent changes in position without assistance (10/24/2016 00:55:Martha Laughlin RN) Murphy Scale Nutrition: Excellent- Eats most of every meal. Never refuses a meal. Usually eats a total of 4 or more servings of meat and dairy products. Occasionally eats between meals. Does not require supplementation (10/24/2016 00:55:Martha Laughlin RN) Murphy Scale Friction and Shear: No Apparent Problem- Moves in bed and in chair independently and has sufficient muscle strength to lift up completely during move. Maintains good position in bed or chair at all times (10/24/2016 00:55:Martha Laughlin RN) Murphy Scale Total: 23 (10/24/2016 00:55:QS system process) Murphy Scale Risk: No Risk of Pressure Ulcer Noted at this Time (10/24/2016 00:55:QS system process) Family Support: Significant Other supportive, at bedside frequently (10/24/2016 00:55:Martha Laughlin RN) Emotional State: Calm/Relaxed (10/24/2016 00:55:Martha Laughlin RN) Call [place] Within Reach: Yes (10/24/2016 00:55:Martha Laughlin RN) Side Rails Up: Yes (10/24/2016 00:55:Martha Laughlin RN) Bed Wheels Locked: Yes (10/24/2016 00:55:Martha Laughlin RN) Arm Bands Present: Yes (10/24/2016 00:55:Martha Laughlin RN) Isolation: [place] (10/24/2016 00:55:Martha Laughlin RN) Fall Risk History of Falling: (0) No (10/24/2016 00:55:Martha Laughlin RN) Fall Risk Secondary Diagnosis: (0) No (10/24/2016 00:55:Martha Kossmann, RN) Fall Risk Ambulatory Aid: (0) None/Bedrest/Wheelchair/Nurse Assist (10/24/2016 00:55:Martha Laughlin RN) Fall Risk IV Therapy: (20) Yes (10/24/2016 00:55:Martha Laughlin RN) Fall Risk Gait: (0) Normal/Bedrest/Immobile (10/24/2016 00:55:Martha Laughlin RN) Fall Risk Mental Status: (0) Oriented to Own Ability (10/24/2016 00:55:Martha Laughlin RN) Fall Risk Score: 20 (10/24/2016 00:55:QS system process) Fall Risk Score Definition: No Risk: No action required (10/24/2016 00:55:QS system process) Recent Exp Communicable Disease: No (10/24/2016 00:55:Martha Laughlin RN) Cough or Fever: No (10/24/2016 00:55:Martha Laughlin RN) Foreign Travel Past 10 Days: No (10/24/2016 00:55:Martha Laughlin RN) Open Wounds or Sores: No (10/24/2016 00:55:Martha Laughlin RN) Prior Antibiotic Resistance Tx: No (10/24/2016 00:55:Martha Laughlin RN) Cultures Obtained: Not Applicable (10/24/2016 00:55:Martha Laughlin RN) Isolation Initiated: No (10/24/2016 00:55:Martha Laughlin RN) Pt/Family Education: Handwashing Hygiene (10/24/2016 00:55:Martha Laughlin RN) FHR Baseline Rate (bpm) Baby A: 135 (10/24/2016 01:50:Martha Laughlin RN) FHR Baseline Rate (bpm) Baby A: 140 (10/24/2016 01:34:Hollie Hendrickson RN) FHR Baseline Rate (bpm) Baby A: 145 (10/24/2016 01:14:Hollie Hendrickson RN) FHR Baseline Rate (bpm) Baby A: 145 (10/24/2016 01:08:Hollie Hendrickson RN) Variability Baby A: Moderate 6-25 bpm (10/24/2016 01:50:Martha Laughlin RN) Variability Baby A: Moderate 6-25 bpm (10/24/2016 01:34:Hollie Hendrickson RN) Variability Baby A: Moderate 6-25 bpm (10/24/2016 01:14:Hollie Rocco, RN) Variability Baby A: Moderate 6-25 bpm (10/24/2016 01:08:Hollie Hendrickson RN) Accelerations Baby A: 10X10 (10/24/2016 01:34:Hollie Hendrickson RN) Accelerations Baby A: None (10/24/2016 01:14:Hollie Hendrickson RN) Accelerations Baby A: None (10/24/2016 01:08:Hollie Hendrickson RN) Decelerations Baby A: Variable (10/24/2016 01:50:Martha Laughlin RN) Decelerations Baby A: Variable (10/24/2016 01:34:Hollie Hendrickson RN) Decelerations Baby A: None (10/24/2016 01:14:Hollie Hendrickson RN) Decelerations Baby A: None (10/24/2016 01:08:Hollie Hendrickson RN) FHR Baseline Rate (bpm) Baby B: 155 (10/24/2016 02:00:Martha Laughlin RN) FHR Baseline Rate (bpm) Baby B: 125 (10/24/2016 01:50:Martha Laughlin RN) Variability Baby B: Moderate 6-25 bpm (10/24/2016 02:00:Martha Laughlin RN) Variability Baby B: Moderate 6-25 bpm (10/24/2016 01:50:Martha Laughlin RN) Accelerations Baby B: None (10/24/2016 02:00:Martha Laughlin RN) Accelerations Baby B: 10X10 (10/24/2016 01:50:Martha Laughlin RN) Decelerations Baby B: Variable (10/24/2016 02:00:Martha Laughlin RN) Decelerations Baby B: None (10/24/2016 01:50:Martha Laughlin RN) Assessment Flag: Admission Assessment (10/24/2016 00:55:QS system process)
[2016-10-24] MEDS ORDERED: PENICILLIN G POTASSIUM 2,500,000 UNIT in DEXTROSE 5%-WATER 50 ML IV SCH (04:53)
[2016-10-24] MEDS: IBUPROFEN 800 MG TABLET PO SCH ×3 (05:49→21:43)
--- NOTE | 2016-10-24 06:23 | L&D General Admission ---
General Admit Datetime Report Generated by CPN: 10/24/2016 06:00 INFORMATION Patient Age: 20 (10/07/2016 14:36:QS system process) EDC: 11/24/2016 00:00 (10/07/2016 14:46:Nilam Cary RN) : 2 (10/07/2016 14:46:Melisa De Leon RN) Para: 1 (10/20/2016 15:52:ANITA Granda) Term: 1 (10/07/2016 14:46:ANITA Granda) : 0 (10/07/2016 14:46:ANITA Granda) Spontaneous Abortions: 0 (10/07/2016 14:46:ANITA Granda) Induced Abortions: 0 (10/07/2016 14:46:ANITA Granda) Livin (10/07/2016 14:46:ANITA Granda) Cesareans: 0 (10/07/2016 14:46:ANITA Granda) VBACs: 0 (10/07/2016 14:46:Yenifer Dawkins [facility]) Ectopic: 0 [facility]10[facility]07[facility]2016 [facility] Baby, Number in Womb: 2 (10/20/2016 15:52:Yenifer Dawkins [facility]) CARE Primary Associate Property Manager: [facility] (10/07/2016 14:46:Yenifer Dawkins [facility] Associate Property Manager Other: Health Department (10/07/2016 14:46:Martha Laughlin RN) Adequate Care: No (10/07/2016 14:46:Martha Laughlin RN) Prepregnancy Weight (lb): 130 (10/07/2016 14:46:Martha Laughlin RN) Prepregnancy Weight (kg): 59.1 (10/07/2016 14:46:QS system process) Height (in): 68 (10/24/2016 04:35:QS system process) ALLERGIES Medication Allergy: No (10/07/2016 14:46:Martha Laughlin RN) Medication Allergies: No Known Allergies (10/24/2016) (10/24/2016 03:41:QS system process) Latex Allergy: No Latex Allergies (10/07/2016 14:46:Martha Laughlin RN) Food Allergies: denies (10/07/2016 14:46:Martha Laughlin RN) Environmental Allergies: denies (10/07/2016 14:46:Martha Laughlin RN) COMMUNICATION Primary Language: Paraguayan (10/07/2016 14:46:Martha Laughlin RN) Medical Tx Preferred Language: Paraguayan (10/07/2016 14:46:Martha Laughlin RN) [place]aguayan Communication Ability: Speaks Paraguayan; Reads Paraguayan (10/07/2016 14:46:Martha Laughlin RN) Communication Barrier(s): None (10/07/2016 14:46:Martha Laughlin RN) DEMOGRAPHICS Address: [address] [place] [id number] (10/07/2016 14:36:QS system process) Zipcode: [address] (10/07/2016 14:36:QS system process) Home (10/07/2016 14:36:QS system process) N: [phone] (10/07/2016 14:36:QS system process) Next of Kin Name: TIRSO MEJIA (10/07/2016 14:36:QS system process) Next of Kin (10/07/2016 14:36:QS system process) Next of Kin Relationship: MO (10/07/2016 14:36:QS system process) Date of : 1995 (10/07/2016 14:36:QS system process) Marital Status: Single (10/07/2016 14:36:QS system process) Sex: Female (10/07/2016 14:36:QS system process) Race: (10/07/2016 14:36:QS system process) Ethnicity: Non- or (10/07/2016 14:36:QS system process) Sabianist: None (10/07/2016 14:36:QS system process) DRUG AND ALCOHOL USE Alcohol: No (10/07/2016 14:46:Martha Laughlin RN) Cigarettes: Former Smoker. [id number] (10/07/2016 14:46:Martha Laughlin RN) Marijuana: No (10/07/2016 14:46:Martha Laughlin RN) Cocaine: No (10/07/2016 14:46:Martha Laughlin RN) Other Illicit Drugs: No (10/07/2016 14:46:Martha Laughlin RN) VACCINE HISTORY Influenza Vaccine: Yes (10/07/2016 14:46:Martha Laughlin RN) Influenza Date: 2015 (10/07/2016 14:46:Martha Laughlin RN) Pneumococcal Vaccine: No (10/07/2016 14:46:Martha Laughlin RN) Tetanus Vaccine: Uncertain (10/07/2016 14:46:Martha Laughlin RN) Tdap Vaccine: Uncertain (10/07/2016 14:46:Martha Laughlin RN) Hepatitis B Vaccine: Yes (10/07/2016 14:46:Martha Laughlin RN) Warehouse Specialist: [facility] (10/07/2016 14:46:Martha Laughlin RN) Feeding Preference: Breast (10/07/2016 14:46:Martha Laughlin RN) Benefit of Breast Feed Discussed: Yes (10/07/2016 14:46:Martha Laughlin RN) Circumcision: Yes (10/07/2016 14:46:Martha Laughlin RN) Classes Attended: No (10/07/2016 14:46:Martha Laughlin RN) Tubal Ligation: No (10/07/2016 14:46:Martha Laughlin RN) Tubal Authorization Signed: N/A (10/07/2016 14:46:Martha Laughlin RN) Consent: N/A (10/07/2016 14:46:Martha Laughlin RN) Consent Signed: N/A (10/07/2016 14:46:Martha Laughlin RN) Pain Management Plans: Epidural (10/07/2016 14:46:Martha Laughlin RN) Plans for Labor and Delivery: None (10/07/2016 14:46:Martha Laughlin RN) Support Person: (10/07/2016 14:46:Martha Laughlin RN) Support Person Relationship: (10/07/2016 14:46:Martha Laughlin RN) Cultural/Spritual Practice: No (10/07/2016 14:46:Martha Laughlin RN) Spir/Cult Dietary Needs: No (10/07/2016 14:46:Martha Laughlin RN) LIVING SITUATION/DISCHARGE PLAN Living Arrangements: House (10/07/2016 14:46:Martha Laughlin RN) Adequate Access to:: Electric; Heat; Refrigeration; Plumbing/Running water; Phone; Transportation (10/07/2016 14:46:Martha Laughlin RN) 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: (10/07/2016 14:46:Martha Laughlin RN) Person to Help after Discharge: Sir (10/07/2016 14:46:Martha Laughlin RN) Currently Using Commun Resources: Yes (10/07/2016 14:46:Martha Laughlin RN) Specify Current Resource Used: medicaid (10/07/2016 14:46:Martha Laughlin RN) Outside Agency/Resident Care Director: No (10/07/2016 14:46:Martha Laughlin RN) Car Seat for Discharge: Yes (10/07/2016 14:46:Martha Laughlin RN) Adoption Requested: No (10/07/2016 14:46:Martha Laughlin RN) Pt Contact w/infant Post : N/A (10/07/2016 14:46:Martha Laughlin RN) LABS Blood Type: O Positive (10/07/2016 14:46:Nilam Cary RN) Antibody Screen: negative (10/07/2016 14:46:Nilam Cary RN) Hemoglobin: 8.5 L (10/24/2016 00:56:QS system process) Hematocrit: 26.0 L (10/24/2016 00:56:QS system process) MCV: 78 L (10/24/2016 00:56:QS system process) Group Beta Strep: unknown (10/07/2016 14:46:Martha Laughlin RN) Gonorrhea: Negative (10/07/2016 14:46:Nilam Cary RN) Chlamydia: Negative (10/07/2016 14:46:Nilam Cary RN) RPR/VDRL: Nonreactive (10/07/2016 14:46:Nilam Cary RN) HIV Results: nonreactive (10/07/2016 14:46:Nilam Cary RN) Rubella: Non-Immune (10/07/2016 14:46:Nilam Cary RN) Varicella: Susceptible (10/07/2016 14:46:Nilam Cary RN) OB/PREVIOUS HISTORY Previous Procedures: Ultrasound; NST (10/07/2016 14:46:Martha Laughlin RN) Current Procedures: Ultrasound; NST (10/07/2016 14:46:Martha Laughlin RN) History of Previous : No (10/07/2016 14:46:Martha Laughlin RN) History of Gestational Diabetes: No (10/07/2016 14:46:Martha Laughlin RN) History of PIH: No (10/07/2016 14:46:Martha Laughlin RN) History of Incompetent Cervix: No (10/07/2016 14:46:Martha Laughlin RN) History of Placenta Previa/Abrup: No (10/07/2016 14:46:Martha Laughlin RN) History of Macrosomia: No (10/07/2016 14:46:Martha Laughlin RN) History of IUGR: No (10/07/2016 14:46:Martha Laughlin RN) History of Hemorrhage: No (10/07/2016 14:46:Martha Laughlin RN) History of Loss/Stillborn: No (10/07/2016 14:46:Martha Laughlin RN) History of : No (10/07/2016 14:46:Martha Laughlin RN) History of D (Rh) Sensitization: No (10/07/2016 14:46:Martha Laughlin RN) History Recurrent Loss/Stillborn: No (10/07/2016 14:46:Martha Laughlin RN) History Depression/PP Depression: No (10/07/2016 14:46:Martha Laughlin RN) History of Uterine Anomaly/KIRA: No (10/07/2016 14:46:Martha Laughlin RN) History of Infertility: No (10/07/2016 14:46:Martha Laughlin RN) History of ART Treatment: No (10/07/2016 14:46:Martha Laughlin RN) History of KIRA: No (10/07/2016 14:46:Martha Laughlin RN) Comments Obstetrical History: g1-Jul 2015, female, , precipitous delivery @ 37 weeks, one hour in labor, received iron transfusions g2- current , mono/di twins, PROM/PTL @ 35+4 weeks gestation (10/07/2016 14:46:Martha Laughlin RN) MEDICAL HISTORY Med Hx Diabetes: No (10/07/2016 14:46:Martha Laughlin RN) Med Hx Hypertension: No (10/07/2016 14:46:Martha Laughlin RN) Med Hx Heart Disease: No (10/07/2016 14:46:Martha Laughlin RN) Med Hx Autoimmune Disorder: No (10/07/2016 14:46:Martha Laughlin RN) Med Hx Kidney Disease/UTI: No (10/07/2016 14:46:Martha Laughlin RN) Med Hx Neurologic/Epilepsy: No (10/07/2016 14:46:Martha Laughlin RN) Med Hx Psychiatric Disorders: No (10/07/2016 14:46:Martha Laughlin RN) Med Hx Hepatitis/Liver Disease: No (10/07/2016 14:46:Martha Laughlin RN) Med Hx Varicosities/Phlebitis: No (10/07/2016 14:46:Martha Laughlin RN) Med Hx Thyroid Dysfunction: No (10/07/2016 14:46:Martha Laughlin RN) Med Hx Trauma/Violence: No (10/07/2016 14:46:Martha Laughlin RN) Med Hx Blood Transfusion: No (10/07/2016 14:46:Martha Laughlin RN) Med Hx Pulmonary (Asthma,TB): No (10/07/2016 14:46:Martha Laughlin RN) Med Hx Breast: No (10/07/2016 14:46:Martha Laughlin RN) Med 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 (10/07/2016 14:46:Martha Laughlin RN) Med Hx Hospitalization/Surgery: Yes (10/07/2016 14:46:Martha Laughlin RN) Med Hx Anesthetic Complications: No (10/07/2016 14:46:Martha Laughlin RN) Med Hx Abnormal Pap Smear: No (10/07/2016 14:46:Martha Laughlin RN) Other Medical Diseases: Yes (10/07/2016 14:46:Martha Laughlin RN) Med Hx Significant Family Hx: No (10/07/2016 14:46:Martha Laughlin RN) Details of Med/Surg Hx: anemia received iron transfusion post delivery, x 1, with twins, (10/07/2016 14:46:Martha Laughlin RN) INFECTIOUS HISTORY Inf Hx Gonorrhea: No (10/07/2016 14:46:Martha Laughlin RN) Inf Hx Chlamydia: No (10/07/2016 14:46:Martha Laughlin RN) Inf Hx Syphilis: No (10/07/2016 14:46:Martha Laughlin RN) Inf Hx HIV/AIDS: No (10/07/2016 14:46:Martha Laughlin RN) Inf Hx Human Papilloma Virus: No (10/07/2016 14:46:Martha Laughlin RN) Inf Hx Pt/Partner Genital Herpes: No (10/07/2016 14:46:Martha Laughlin RN) Inf Hx Tuberculosis/Exposure: No (10/07/2016 14:46:Martha Laughlin RN) Inf Hx Hepatitis B,C: No (10/07/2016 14:46:Martha Laughlin RN) Inf Hx Rash or Viral Illness: No (10/07/2016 14:46:Martha Laughlin RN) GENETIC HISTORY Gen Hx Age >=35 at AUDREY: No (10/07/2016 14:46:Martha Laughlin RN) Gen Hx Thalassemia: No (10/07/2016 14:46:Martha Laughlin RN) Gen Hx Congenital Heart Defect: No (10/07/2016 14:46:Martha Laughlin RN) Gen Hx Neural Tube Defect: No (10/07/2016 14:46:Martha Laughlin RN) Gen Hx Down's Syndrome: No (10/07/2016 14:46:Martha Laughlin RN) Gen Hx James-Sachs: No (10/07/2016 14:46:Martha Laughlin RN) Gen Hx Richard: No (10/07/2016 14:46:Martha Laughlin RN) Gen Hx Familial Dysautonomia: No (10/07/2016 14:46:Martha Laughlin RN) Gen Hx Sickle Cell Disease/Trait: No (10/07/2016 14:46:Martha Laughlin RN) Gen Hx Hemophilia/Blood Disorder: No (10/07/2016 14:46:Martha Laughlin RN) Gen Hx Muscular Dystrophy: No (10/07/2016 14:46:Martha Laughlin RN) Gen Hx Cystic Fibrosis: No (10/07/2016 14:46:Martha Laughlin RN) Gen Hx Huntingtons Chorea: No (10/07/2016 14:46:Martha Laughlin RN) Gen Hx Mental Retardation/Autism: No (10/07/2016 14:46:Martha Laughlin RN) Gen Hx Tested for Fragile X: No (10/07/2016 14:46:Martha Laughlin RN) Gen Hx Other Inher/Chromosomal: No (10/07/2016 14:46:Martha Laughlin RN) Gen Hx Maternal Metabolic DO: No (10/07/2016 14:46:Martha Laughlin RN) Gen Hx Pt Father or FOB Defect: No (10/07/2016 14:46:Martha Laughlin RN) Gen Hx Other Genetic History: No (10/07/2016 14:46:Martha Laughlin RN) Gen Hx Drugs/Meds since LMP: Yes (10/07/2016 14:46:Martha Laughlin RN) Gen Hx Medications: tylenol, vitamins, iron (10/07/2016 14:46:Martha Laughlin RN)
--- NOTE | 2016-10-24 06:23 | L&D Current Admission ---
Current Admit Datetime Report Generated by CPN: 10/24/2016 06:00 ADMISSION INFORMATION Current Admit Date/Time: 10/24/2016 00:54 (10/24/2016 00:54:Martha Laughlin RN) Reason for Admission: Rupture of Membranes (10/24/2016 00:54:Martha Laughlin RN) Other Reason for Admission: Gladwin/Di twins vertex/vertex SROM @ 2330 (10/24/2016 00:54:Martha Laughlin RN) Chief Complaint: Suspected Rupture of Membranes (10/24/2016 00:54:Martha Laughlin RN) Medications During : Ferrous Sulfate (Iron); Vitamin; Acetaminophen (Tylenol) (10/24/2016 00:54:Martha Laughlin RN) EGA per Dates: 35.4 (10/24/2016 00:54:QS system process) Method of Arrival: Wheelchair (10/24/2016 00:54:Martha Laughlin RN) Admitted From: Home (10/24/2016 00:54:Martha Laughlin RN) Reason for Induction: Not Applicable (10/24/2016 00:54:Martha Laughlin RN) Records Available: Yes (10/24/2016 00:54:Martha Laughlin RN) General Admission Information: Reviewed (10/24/2016 00:54:Martha Laughlin RN) General Admission Reviewed By: CAMRON Laughlin (10/24/2016 00:54:Martha Laughlin RN) BELONGINGS/ADVANCED DIRECTIVES Other Belongings: see valuable consents (10/24/2016 00:54:Martha Laughlin RN) Disposition of Belongings: Kept with Patient (10/24/2016 00:54:Martha Laughlin RN) Advance Direct for Healthcare: No, and Wants No Information (10/24/2016 00:54:Martha Laughlin RN) Durable Power of Pouncing Lathe Operator: No (10/24/2016 00:54:Martha Laughlin RN) Living Will: No (10/24/2016 00:54:Martha Laughlin RN) Organ Donor: Yes (10/24/2016 00:54:Martha Laughlin RN) Pt Rights Information Given: Yes (10/24/2016 00:54:Martha Laughlin RN) Pt Understands Pt Rights: Yes (10/24/2016 00:54:Matrha Laughlin RN) Patient Rights Comments: Given in patient access (10/24/2016 00:54:Martha Laughlin RN) LEARNING ASSESSMENT Knowledge Level: Understands L_D Process; Understands Care Activities; Had Pre-Hospital Education; Understands Diagnosis (10/24/2016 00:54:Martha Laughlin RN) Barriers to Learning: Pain (10/24/2016 00:54:Martha Laughlin RN) Learning Readiness: Motivated (10/24/2016 00:54:Martha Laughlin RN) Learns Best By: 1 to 1 Instruction; Reading; Videos; Group Discussion; Demonstration (10/24/2016 00:54:Martha Laughlin RN) Learning Needs: Labor and Delivery Process; Pain Management; Symptoms to Report; Treatment Plan; Medication; Diagnosis; Nutrition; Equipment; Care; Community Resources (10/24/2016 00:54:Martha Laughlin RN) DOMESTIC VIOLANCE SCREENING Dom Viol Threatened/Hurt: No (10/24/2016 00:54:Martha Laughlin RN) Hx of Abuse/Neglect past 2yrs: No (10/24/2016 00:54:Martha Laughlin RN) Feel Unsafe Going Home: No (10/24/2016 00:54:Martha Laughlin RN) Addt'l Observ Indicating Abuse: No (10/24/2016 00:54:Martha Laughlin RN) Reason Unable to Complete Screen: No Opportunity to Talk Privately (10/24/2016 00:54:Martha Laughlin RN) Considered Personal Harm/Suicide: No (10/24/2016 00:54:Marhta Laughlin RN) NUTRITIONAL/FUNCTIONAL SCREENING Problem with Appetite >5 Days: No (10/24/2016 00:54:Martha Laughlin RN) Chew/Swallow Difficulties: No (10/24/2016 00:54:Martha Laughlin RN) Inappropriate Wt Gain/Loss: No (10/24/2016 00:54:Martha Laughlin RN) Presence Skin Breakdown/Ulcer: No (10/24/2016 00:54:Martha Laughlin RN) Special Diet: No (10/24/2016 00:54:Martha Laughlin RN) Pt Requests Customer Relationship Specialist Visit: No (10/24/2016 00:54:Martha Laughlin RN) Hx of Any of the Following?: N/A (10/24/2016 00:54:Martha Laughlin RN) New Diagnosis of: N/A (10/24/2016 00:54:Martha Laughlin RN) Requires Assist w/Ambulation: No (10/24/2016 00:54:Martha Laughlin RN) Uses Assist Device to Ambulate: No (10/24/2016 00:54:Martha Laughlin RN) Pt Requires Help w/ADL's: No (10/24/2016 00:54:Martha Laughlin RN)
[2016-10-24] MEDS: FERROUS SULFATE 325 MG TABLET PO SCH ×2 (09:40→18:00)
[2016-10-24] MEDS: SENNOSIDES/DOCUSATE 8.6-50 MG 1 EACH TABLET PO SCH (09:40)
[2016-10-24] MEDS: DOCUSATE SODIUM 100 MG CAPSULE PO SCH ×2 (09:40→18:00)
[2016-10-24] MEDS: PRENATAL VITAMIN W-O CA NO5/FE FUMARATE/FA CAPSULE PO SCH (09:40)
--- NOTE | 2016-10-25 06:21 | L&D General Admission ---
General Admit Datetime Report Generated by CPN: 10/25/2016 06:00 INFORMATION Patient Age: 20 (10/07/2016 14:36:QS system process) EDC: 11/24/2016 00:00 (10/07/2016 14:46:Nilam Cary RN) : 2 (10/07/2016 14:46:Melisa De Leon RN) Para: 1 (10/20/2016 15:52:ANITA Granda) Term: 1 (10/07/2016 14:46:ANITA Granda) : 0 (10/07/2016 14:46:ANITA Granda) Spontaneous Abortions: 0 (10/07/2016 14:46:ANITA Granda) Induced Abortions: 0 (10/07/2016 14:46:ANITA Granda) Livin (10/07/2016 14:46:ANITA Granda) Cesareans: 0 (10/07/2016 14:46:ANITA Granda) VBACs: 0 (10/07/2016 14:46:Yenifer Dawkins [facility]) Ectopic: 0 [facility]07/2016 [facility] Baby, Number in Womb: 2 (10/20/2016 15:52:Yenifer Dawkins [facility]) CARE Primary Wallpaper Inspector: [facility] (10/07/2016 14:46:Yenifer Dawkins [facility]) Wallpaper Inspector Other: Health Department (10/07/2016 14:46:Martha Laughlin RN) Adequate Care: No (10/07/2016 14:46:Martha Laughlin RN) Prepregnancy Weight (lb): 130 (10/07/2016 14:46:Martha Laughlin RN) Prepregnancy Weight (kg): 59.1 (10/07/2016 14:46:QS system process) Height (in): 68 (10/24/2016 04:35:QS system process) ALLERGIES Medication Allergy: No (10/07/2016 14:46:Martha Laughlin RN) Medication Allergies: No Known Allergies (10/24/2016) (10/24/2016 03:41:QS system process) Latex Allergy: No Latex Allergies (10/07/2016 14:46:Martha Laughlin RN) Food Allergies: denies (10/07/2016 14:46:Martha Laughlin RN) Environmental Allergies: denies (10/07/2016 14:46:Martha Laughlin RN) COMMUNICATION Primary Language: Citizen [place] (10/07/2016 14:46:Martha Laughlin RN) Medical Tx Preferred Language: Citizen [place] (10/07/2016 14:46:Martha Laughlin RN) [place] Communication Ability: Speaks Citizen [place]; Reads Citizen [place] (10/07/2016 14:46:Martha Laughlin RN) Communication Barrier(s): None (10/07/2016 14:46:Martha Laughlin RN) DEMOGRAPHICS Address: [address] [place] [id number] (10/07/2016 14:36:QS system process) Zipcode: [address] (10/07/2016 14:36:QS system process) Home (10/07/2016 14:36:QS system process) N: [id number] (10/07/2016 14:36:QS system process) Next of Kin Name: TIRSO MEJIA (10/07/2016 14:36:QS system process) Next of Kin (10/07/2016 14:36:QS system process) Next of Kin Relationship: MO (10/07/2016 14:36:QS system process) Date of : 1995 (10/07/2016 14:36:QS system process) Marital Status: Single (10/07/2016 14:36:QS system process) Sex: Female (10/07/2016 14:36:QS system process) Race: (10/07/2016 14:36:QS system process) Ethnicity: Non- or (10/07/2016 14:36:QS system process) Yazidi: None (10/07/2016 14:36:QS system process) DRUG AND ALCOHOL USE Alcohol: No (10/07/2016 14:46:Martha Laughlin RN) Cigarettes: Former Smoker. [id number] (10/07/2016 14:46:Martha Laughlin RN) Marijuana: No (10/07/2016 14:46:Martha Laughlin RN) Cocaine: No (10/07/2016 14:46:Martha Laughlin RN) Other Illicit Drugs: No (10/07/2016 14:46:Martha Laughlin RN) VACCINE HISTORY Influenza Vaccine: Yes (10/07/2016 14:46:Martha Laughlin RN) Influenza Date: 2015 (10/07/2016 14:46:Martha Laughlin RN) Pneumococcal Vaccine: No (10/07/2016 14:46:Martha Laughlin RN) Tetanus Vaccine: Uncertain (10/07/2016 14:46:Martha Laughlin RN) Tdap Vaccine: Uncertain (10/07/2016 14:46:Martha Laughlin RN) Hepatitis B Vaccine: Yes (10/07/2016 14:46:Martha Laughlin RN) Turn Down Worker: [facility] (10/07/2016 14:46:Martha Laughlin RN) Feeding Preference: Breast (10/07/2016 14:46:Martha Laughlin RN) Benefit of Breast Feed Discussed: Yes (10/07/2016 14:46:Martha Laughlin RN) Circumcision: Yes (10/07/2016 14:46:Martha Laughlin RN) Classes Attended: No (10/07/2016 14:46:Martha Laughlin RN) Tubal Ligation: No (10/07/2016 14:46:Martha Laughlin RN) Tubal Authorization Signed: N/A (10/07/2016 14:46:Martha Laughlin RN) Consent: N/A (10/07/2016 14:46:Martha Laughlin RN) Consent Signed: N/A (10/07/2016 14:46:Martha Laughlin RN) Pain Management Plans: Epidural (10/07/2016 14:46:Martha Laughlin RN) Plans for Labor and Delivery: None (10/07/2016 14:46:Martha Laughlin RN) Support Person: (10/07/2016 14:46:Martha Laughlin RN) Support Person Relationship: (10/07/2016 14:46:Martha Laughlin RN) Cultural/Spritual Practice: No (10/07/2016 14:46:Martha Laughlin RN) Spir/Cult Dietary Needs: No (10/07/2016 14:46:Martha Laughlin RN) LIVING SITUATION/DISCHARGE PLAN Living Arrangements: House (10/07/2016 14:46:Martha Laughlin RN) Adequate Access to:: Electric; Heat; Refrigeration; Plumbing/Running water; Phone; Transportation (10/07/2016 14:46:Martha Laughlin RN) Discharge Manager Of Transportation Person: (10/07/2016 14:46:Martha Laughlin RN) Person to Help after Discharge: Sir (10/07/2016 14:46:Martha Laughlin RN) Currently Using Commun Resources: Yes (10/07/2016 14:46:Martha Laughlin RN) Specify Current Resource Used: medicaid (10/07/2016 14:46:Martha Laughlin RN) Outside Agency/Dance Choreographer: No (10/07/2016 14:46:Martha Laughlin RN) Car Seat for Discharge: Yes (10/07/2016 14:46:Martha Laughlin RN) Adoption Requested: No (10/07/2016 14:46:Martha Laughlin RN) Pt Contact w/infant Post : N/A (10/07/2016 14:46:Martha Laughlin RN) LABS Blood Type: O Positive (10/07/2016 14:46:Nilam Cary RN) Antibody Screen: negative (10/07/2016 14:46:Nilam Cary RN) Hemoglobin: 8.5 L (10/24/2016 00:56:QS system process) Hematocrit: 26.0 L (10/24/2016 00:56:QS system process) MCV: 78 L (10/24/2016 00:56:QS system process) Group Beta Strep: unknown (10/07/2016 14:46:Martha Laughlin RN) Gonorrhea: Negative (10/07/2016 14:46:Nilam Cary RN) Chlamydia: Negative (10/07/2016 14:46:Nilam Cary RN) RPR/VDRL: Nonreactive (10/07/2016 14:46:Nilam Cary RN) HIV Results: nonreactive (10/07/2016 14:46:Nilam Cary RN) Rubella: Non-Immune (10/07/2016 14:46:Nilam Cary RN) Varicella: Susceptible (10/07/2016 14:46:Nilam Cary RN) OB/PREVIOUS HISTORY Previous Procedures: Ultrasound; NST (10/07/2016 14:46:Martha Laughlin RN) Current Procedures: Ultrasound; NST (10/07/2016 14:46:Martha Laughlin RN) History of Previous : No (10/07/2016 14:46:Martha Laughlin RN) History of Gestational Diabetes: No (10/07/2016 14:46:Martha Laughlin RN) History of PIH: No (10/07/2016 14:46:Martha Laughlin RN) History of Incompetent Cervix: No (10/07/2016 14:46:Martha Laughlin RN) History of Placenta Previa/Abrup: No (10/07/2016 14:46:Martha Laughlin RN) History of Macrosomia: No (10/07/2016 14:46:Martha Laughlin RN) History of IUGR: No (10/07/2016 14:46:Martha Laughlin RN) History of Hemorrhage: No (10/07/2016 14:46:Martha Laughlin RN) History of Loss/Stillborn: No (10/07/2016 14:46:Martha Laughlin RN) History of : No (10/07/2016 14:46:Martha Laughlin RN) History of D (Rh) Sensitization: No (10/07/2016 14:46:Martha Laughlin RN) History Recurrent Loss/Stillborn: No (10/07/2016 14:46:Martha Laughlin RN) History Depression/PP Depression: No (10/07/2016 14:46:Martha Laughlin RN) History of Uterine Anomaly/KIRA: No (10/07/2016 14:46:Martha Laughlin RN) History of Infertility: No (10/07/2016 14:46:Martha Laughlin RN) History of ART Treatment: No (10/07/2016 14:46:Martha Laughlin RN) History of KIRA: No (10/07/2016 14:46:Martha Laughlin RN) Comments Obstetrical History: g1-Jul 2015, female, , precipitous delivery @ 37 weeks, one hour in labor, received iron transfusions g2- current , mono/di twins, PROM/PTL @ 35+4 weeks gestation (10/07/2016 14:46:Martha Laughlin RN) MEDICAL HISTORY Med Hx Diabetes: No (10/07/2016 14:46:Martha Laughlin RN) Med Hx Hypertension: No (10/07/2016 14:46:Martha Laughlin RN) Med Hx Heart Disease: No (10/07/2016 14:46:Martha Laughlin RN) Med Hx Autoimmune Disorder: No (10/07/2016 14:46:Martha Laughlin RN) Med Hx Kidney Disease/UTI: No (10/07/2016 14:46:Martha Laughlin RN) Med Hx Neurologic/Epilepsy: No (10/07/2016 14:46:Martha Laughlin RN) Med Hx Psychiatric Disorders: No (10/07/2016 14:46:Martha Laughlin RN) Med Hx Hepatitis/Liver Disease: No (10/07/2016 14:46:Martha Laughlin RN) Med Hx Varicosities/Phlebitis: No (10/07/2016 14:46:Martha Laughlin RN) Med Hx Thyroid Dysfunction: No (10/07/2016 14:46:Martha Laughlin RN) Med Hx Trauma/Violence: No (10/07/2016 14:46:Martha Laughlin RN) Med Hx Blood Transfusion: No (10/07/2016 14:46:Martha Laughlin RN) Med Hx Pulmonary (Asthma,TB): No (10/07/2016 14:46:Martha Laughlin RN) Med Hx Breast: No (10/07/2016 14:46:Martha Laughlin RN) Med Hx FRUIT GRADER OPERATOR Surgery: No (10/07/2016 14:46:Martha Laughlin RN) Med Hx Hospitalization/Surgery: Yes (10/07/2016 14:46:Martha Laughlin RN) Med Hx Anesthetic Complications: No (10/07/2016 14:46:Martha Laughlin RN) Med Hx Abnormal Pap Smear: No (10/07/2016 14:46:Martha Laughlin RN) Other Medical Diseases: Yes (10/07/2016 14:46:Martha Laughlin RN) Med Hx Significant Family Hx: No (10/07/2016 14:46:Martha Laughlin RN) Details of Med/Surg Hx: anemia received iron transfusion post delivery, x 1, with twins, (10/07/2016 14:46:Martha Laughlin RN) INFECTIOUS HISTORY Inf Hx Gonorrhea: No (10/07/2016 14:46:Martha Laughlin RN) Inf Hx Chlamydia: No (10/07/2016 14:46:Martha Laughlin RN) Inf Hx Syphilis: No (10/07/2016 14:46:Martha Laughlin RN) Inf Hx HIV/AIDS: No (10/07/2016 14:46:Martha Laughlin RN) Inf Hx Human Papilloma Virus: No (10/07/2016 14:46:Martha Laughlin RN) Inf Hx Pt/Partner Genital Herpes: No (10/07/2016 14:46:Martha Laughlin RN) Inf Hx Tuberculosis/Exposure: No (10/07/2016 14:46:Martha Laughlin RN) Inf Hx Hepatitis B,C: No (10/07/2016 14:46:Martha Laughlin RN) Inf Hx Rash or Viral Illness: No (10/07/2016 14:46:Martha Laughlin RN) GENETIC HISTORY Gen Hx Age >=35 at AUDREY: No (10/07/2016 14:46:Martha Laughlin RN) Gen Hx Thalassemia: No (10/07/2016 14:46:Martha Laughlin RN) Gen Hx Congenital Heart Defect: No (10/07/2016 14:46:Martha Laughlin RN) Gen Hx Neural Tube Defect: No (10/07/2016 14:46:Martha Laughlin RN) Gen Hx Down's Syndrome: No (10/07/2016 14:46:Martha Laughlin RN) Gen Hx James-Sachs: No (10/07/2016 14:46:Martha Laughlin RN) Gen Hx Richard: No (10/07/2016 14:46:Martha Laughlin RN) Gen Hx Familial Dysautonomia: No (10/07/2016 14:46:Martha Laughlin RN) Gen Hx Sickle Cell Disease/Trait: No (10/07/2016 14:46:Martha Laughlin RN) Gen Hx Hemophilia/Blood Disorder: No (10/07/2016 14:46:Martha Laughlin RN) Gen Hx Muscular Dystrophy: No (10/07/2016 14:46:Martha Laughlin RN) Gen Hx Cystic Fibrosis: No (10/07/2016 14:46:Martha Laughlin RN) Gen Hx Huntingtons Chorea: No (10/07/2016 14:46:Martha Laughlin RN) Gen Hx Mental Retardation/Autism: No (10/07/2016 14:46:Martha Laughlin RN) Gen Hx Tested for Fragile X: No (10/07/2016 14:46:Martha Laughlin RN) Gen Hx Other Inher/Chromosomal: No (10/07/2016 14:46:Martha Laughlin RN) Gen Hx Maternal Metabolic DO: No (10/07/2016 14:46:Marhta Laughlin RN) Gen Hx Pt Father or FOB Defect: No (10/07/2016 14:46:Martha Laughlin RN) Gen Hx Other Genetic History: No (10/07/2016 14:46:Martha Laughlin RN) Gen Hx Drugs/Meds since LMP: Yes (10/07/2016 14:46:Martha Laughlin RN) Gen Hx Medications: tylenol, vitamins, iron (10/07/2016 14:46:Martha Laughlin RN)
--- NOTE | 2016-10-25 06:21 | L&D Current Admission ---
Current Admit Datetime Report Generated by CPN: 10/25/2016 06:00 ADMISSION INFORMATION Current Admit Date/Time: 10/24/2016 00:54 (10/24/2016 00:54:Martha Laughlin RN) Reason for Admission: Rupture of Membranes (10/24/2016 00:54:Martha Laughlin RN) Other Reason for Admission: [place]/Di twins vertex/vertex SROM @ 2330 (10/24/2016 00:54:Martha Laughlin RN) Chief Complaint: Suspected Rupture of Membranes (10/24/2016 00:54:Martha Laughlin RN) Medications During : Ferrous Sulfate (Iron); Vitamin; Acetaminophen (Tylenol) (10/24/2016 00:54:Martha Laughlin RN) EGA per Dates: 35.4 (10/24/2016 00:54:QS system process) Method of Arrival: Wheelchair (10/24/2016 00:54:Martha Laughlin RN) Admitted From: Home (10/24/2016 00:54:Martha Laughlin RN) Reason for Induction: Not Applicable (10/24/2016 00:54:Martha Laughlin RN) Records Available: Yes (10/24/2016 00:54:Martha Laughlin RN) General Admission Information: Reviewed (10/24/2016 00:54:Martha Laughlin RN) General Admission Reviewed By: CAMRON Laughlin (10/24/2016 00:54:Martha Laughlin RN) BELONGINGS/ADVANCED DIRECTIVES Other Belongings: see valuable consents (10/24/2016 00:54:Martha Laughlin RN) Disposition of Belongings: Kept with Patient (10/24/2016 00:54:Martha Laughlin RN) Advance Direct for Healthcare: No, and Wants No Information (10/24/2016 00:54:Martha Laughlin RN) Durable Power of Armed Security Professional: No (10/24/2016 00:54:Martha Laughlin RN) Living Will: No (10/24/2016 00:54:Martha Laughlin RN) Organ Donor: Yes (10/24/2016 00:54:Martha Laughlin RN) Pt Rights Information Given: Yes (10/24/2016 00:54:Martha Laughlin RN) Pt Understands Pt Rights: Yes (10/24/2016 00:54:Martha Laughlin RN) Patient Rights Comments: Given in patient access (10/24/2016 00:54:Martha Laughlin RN) LEARNING ASSESSMENT Knowledge Level: Understands L_D Process; Understands Care Activities; Had Pre-Hospital Education; Understands Diagnosis (10/24/2016 00:54:Martha Laughlin RN) Barriers to Learning: Pain (10/24/2016 00:54:Martha Laughlin RN) Learning Readiness: Motivated (10/24/2016 00:54:Martha Laughlin RN) Learns Best By: 1 to 1 Instruction; Reading; Videos; Group Discussion; Demonstration (10/24/2016 00:54:Martha Laughlin RN) Learning Needs: Labor and Delivery Process; Pain Management; Symptoms to Report; Treatment Plan; Medication; Diagnosis; Nutrition; Equipment; Care; Community Resources (10/24/2016 00:54:Martha Laughlin RN) DOMESTIC VIOLANCE SCREENING Dom Viol Threatened/Hurt: No (10/24/2016 00:54:Martha Laughlin RN) Hx of Abuse/Neglect past 2yrs: No (10/24/2016 00:54:Martha Laughlin RN) Feel Unsafe Going Home: No (10/24/2016 00:54:Martha Laughlin RN) Addt'l Observ Indicating Abuse: No (10/24/2016 00:54:Martha Laughlin RN) Reason Unable to Complete Screen: No Opportunity to Talk Privately (10/24/2016 00:54:Martha Laughlin RN) Considered Personal Harm/Suicide: No (10/24/2016 00:54:Martha Laughlin RN) NUTRITIONAL/FUNCTIONAL SCREENING Problem with Appetite >5 Days: No (10/24/2016 00:54:Martha Laughlin RN) Chew/Swallow Difficulties: No (10/24/2016 00:54:Martha Laughlin RN) Inappropriate Wt Gain/Loss: No (10/24/2016 00:54:Martha Laughlin RN) Presence Skin Breakdown/Ulcer: No (10/24/2016 00:54:Martha Laughlin RN) Special Diet: No (10/24/2016 00:54:Martha Laughlin RN) Pt Requests Printed Circuit Board Pcb Draftsman Visit: No (10/24/2016 00:54:Martha Laughlin RN) Hx of Any of the Following?: N/A (10/24/2016 00:54:Martha Laughlin RN) New Diagnosis of: N/A (10/24/2016 00:54:Martha Laughlin RN) Requires Assist w/Ambulation: No (10/24/2016 00:54:Martha Laughlin RN) Uses Assist Device to Ambulate: No (10/24/2016 00:54:Martha Laughlin RN) Pt Requires Help w/ADL's: No (10/24/2016 00:54:Martha Laughlin RN)
--- NOTE | 2016-10-25 06:24 | L&D Care Plan ---
LD CARE PLANS Datetime Report Generated by CPN: 10/25/2016 06:16 Datetime: 10/24/2016 00:46 State: Risk For (Lola Lopez RN) Related To: Labor and Delivery Process (Lola Lopez RN) Goal(s): Patients Pain will be Assessed and Managed; Patient will Verbalize Adequate Relief of Pain or the Ability to [place] with Current Pain (Lola Lopez RN) Interventions: Assess Pain Severity on Scale of 0 (None) to 5 (Severe); Assess Type, Location and Intensity of Pain Each Time Client Reports Discomfort and Notify Provider if Unusal Pain Develops; Encourage Proper Breathing and Relaxation Techniques; Offer Alternatives Such as Repositioning, Calm Environment, Massages, Diversional Activities, Ice Pack, Splinting, and Ambulation; Administer Analgesics as Ordered; Assist with Epidural Placement as Appropriate; Evaluate Therapeutic Effectiveness of Medication and Treatments (Lola Lopez RN) Outcome: Patient will Report Absence or Relief of Pain Consistent with Established Pain Goal (Lola Lopez RN) Status: Ongoing (Lola Lopez RN) Outcome: Patient will have a Decrease in Signs and Symptoms of Discomfort (Lola Lopez RN) Status: Ongoing (Lola Lopez RN) Outcome: Pain will be Controlled During Procedures (Lola Lopez RN) Status: Ongoing (Lola Lopez RN) State: Risk For (Lola Lopez RN) Goal(s): Patient will have Decreased Anxiety and be able to Function at Acceptable Levels (Lola Lopez RN) Interventions: Assess Verbal and Nonverbal Behavioral Indicators of Anxiety; Assist Patient to Identify and Verbalize Symptoms of Anxiety; Identify and Demonstrate Techniques to Control Anxiety; Assist Patient with Coping Mechanisms to Manage Anxiety; Provide Theraputic Touch for the Patient; Explain to Patient, Using a Calm Reassuring Approach and Nonmedical Terms, All Activities, Procedures, and Concerns; Instruct Patient and Family about Post Discharge Care, Limitations, Symptoms to Report and Resources Available (Lola Lopez RN) Outcome: Patient will Identify, Verbalize and Demonstrate Techniques to Control Anxiety (Lola Lopez RN) Status: Ongoing (Lola Lopez RN) Outcome: Patient's Posture, Facial Expressions, Gestures and Activity Level will Reflect Decreased Anxiety (Lola Lopez RN) Status: Ongoing (Lola Lopez RN) Outcome: Patient will Verbalize a Sense of Control and/or Acceptance of the Situation (Lola Lopez RN) Status: Ongoing (Lola Lopez RN) Outcome: Patient will Identify and Utilize Support Person (Lola Lopez RN) Status: Ongoing (Lola Lopez RN) State: Risk For (Lola Lopez RN) Related To: Labor and Delivery Process; Treatment and Procedures; Impending Alterations in Family Dynamics (Lola Lopez RN) Goal(s): Patient will Accurately Verbalize Understanding of Plan of Care and Treatment; Patient and Family will Accurately Verbalize Understanding of the Disease Process (Lola Lopez RN) Interventions: Assess Motivation and Willingness of Patient/Family to Learn; Assess Preferred Learning Mode: One to One Instruction, Reading, Videos, Group Discussion or Demonstration; Assess Barriers to Learning: Pain, Emotional State, Language Barrier, Cognitive Impairment, Visual or Hearing Deficits; Assess Patient and Family Knowledge of Disease Process, Medications and Treatment; Discuss Therapy and/or Treatment Options, Describe Rationale Behind Management, Therapy and Treatment Recommendations; Instruct Patient and Family on Signs and Symptoms to Report; Instruct Patient and Family on Medication Effects and Side Effects; Provide Appropriate and Timely Education Using Multiple Techniques; Provide Patient and Family with Support Group Information and Resources; Give Clear and Thorough Explanations and Demonstrations (Lola Lopez RN) Outcome: Patient and Family will Verbalize Understanding of Condition, Treatment and Signs and Symptoms to Report (Lola Lopez RN) Status: Ongoing (Lola Lopez RN) Outcome: Patient will Identify Perceived Learning Needs and Express Motivation to Learn (Lola Lopez RN) Status: Ongoing (Lola Lopez RN) Outcome: Patient will Verbalize Understanding of Desired Content, and/or Performs Desired Skill Prior to Discharge (Lola Lopez RN) Status: Ongoing (Lola Lopez RN) State: Risk For (Martha Laughlin RN) Related To: Premature/Prolonged Rupture of Membranes; Invasive Procedures (Martha Laughlin RN) Goal(s): The Patient will be Free of Infection, Vital Signs Stable and Lab Work within Normal Parameters (Martha Laughlin RN) Interventions: Instruct and Reinforce Proper Handwashing, Hygiene, and Care Techniques to Patient and Family; Monitor Vital Signs; Monitor Patient for the Following Signs of Infection: Fever, Abdominal Tenderness, Unusual Discharge; Monitor Aminiotic Fluid, Urine and Lochia for Color and Odor; Observe Wounds, Incisions and Invasive Line Sites for Redness, Drainage and Edema; Assess IV Sites per Hospital Policy; Monitor Lab and Test Results and Notify Provider of Abnormal Findings; Assess Nutritional Status and Promote Good Nutrition (Martha Laughlin RN) Outcome: Patient will Remain Free of Infection (Martha Laughlin RN) Status: Ongoing (Martha Laughlin RN) Outcome: Infection will be Recognized Early to Allow for Prompt Treatment (Martha Laughlin RN) Status: Ongoing (Martha Laughlin RN) Outcome: Patient will have Vital Signs Within Expected Range (Martha Laughlin RN) Status: Ongoing (Martha Laughlin RN) State: Risk For (Martha Laughlin RN) Related To: Prolonged Labor or Induction; Hemorrhage; Anesthesia (Martha Laughlin RN) Goal(s): Patient will Achieve and Maintain a Balanced Fluid Volume Status; Hemodynamically Stable (Martha Laughlin RN) Interventions: Monitor Vital Signs; Auscultate Breath Sounds; Monitor Patient for Skin Turgor, Mucous Membranes, Dry Skin, Weakness, Headaches and Confusion; Provide Oral Fluids as Ordered; Initiate and Maintain Intravenous Fluids as Ordered; Monitor Intake and Output as Indicated Per Patient Status; Accurately Measure Blood Loss; Monitor Lab and Test Results as Obtained and Notify Provider of Abnormal Findings; Monitor Patient's Weight (Martha Laughlin RN) Outcome: Patient will have Clear Lung Sounds (Martha Laughlin RN) Status: Ongoing (Martha Laughlin RN) Outcome: Patient will have Vital Signs within Expected Range (Martha Laughlin RN) Status: Ongoing (Martha Laughlin RN) Outcome: Urine Output will be within Expected Range (Martha Laughlin RN) Status: Ongoing (Martha Laughlin RN) Outcome: Patient will have Minimal Generalized or Upper Extremity Edema (Martha Laughlin RN) Status: Ongoing (Martha Laughlin RN) State: Risk For (Lola Lopez RN) Related To: Labor and Delivery Process; Anesthesia; Risk to Status; Uteroplacental Perfusion (Martha Laughlin RN) Goal(s): Patient will Remain Free from Injury (Lola Lopez RN) Interventions: Monitoring as per Hospital Protocol; Assess Neurological Status; Perform Risk Assessment of Patients with Induction and ; Perform Fall Risk Assessment and Prevention per Hospital Protocol; Perform DVT Risk Assessment and Prophylaxis per Hospital Protocol; Ensure that Oxygen, Suction, and Resuscitation Medications and Equipment are Readily Available; Confirm Patient ID Prior to Procedure(s) and Medication Administration per Hospital Policy (Lola Lopez RN) Outcome: Successful Fall Risk Prevention (Lola Lopez RN) Status: Ongoing (Lola Lopez RN) Outcome: Patient will Deliver Infant without Adverse Sequela (Lola Lopez RN) Status: Ongoing (Lola Lopez RN) Outcome: Patient's Neurological Status will Remain Stable (Lola Lopez RN) Status: Ongoing (Lola Lopez RN) State: Risk For (Lola Lopez RN) Related To: Vaginal Delivery; Invasive Procedures (Martha Laughlin RN) Goal(s): Patient will Maintain Optimal Skin Integrity, Free of Breakdown, Injury or Infection (Lola Lopez RN) Interventions: Complete Screening for Pressure Ulcer Risk and Initiate Protocol per Hospital Policy; Monitor Site of Skin Impairment for Color Changes, Redness, Swelling, Warmth, Pain or Other Signs of Infection; Encourage and Assist with Position Changes; Monitor Patient's Mobility Status; Provide Adequate Nutrition and Fluids; Teach Patient Appropriate Hygienic Care; Teach Patient/Family Skin Care Management (Lola Lopez RN) Outcome: Patient will not have Evidence of Injury Such as Skin Breakdown, Scrapes, Cuts, or Bruising (Lola Lopez RN) Status: Ongoing (Lola Lopez RN) Outcome: Patient will Report Any Altered Sensation or Pain at Site of Skin Impairment (Lola Lopez RN) Status: Ongoing (Loal Lopez RN) Outcome: Patients Incisions and Wounds will be without Signs or Symptoms of Infection (Lola Lopez RN) Status: Ongoing (Lola Lopez RN) Outcome: Patient will Demonstrate Understanding of Plan to Heal Skin and Prevent Reinjury and Verbalize Risk Factors (Lola Lopez RN) Status: Ongoing (Lola Lopez RN) State: Risk For (Martha Laughlin RN) Related To: Multiple (Martha Laughlin RN) Goal(s): Parents will Demonstrate Progressive Parenting Behaviors (Martha Laughlin RN) Interventions: Assess for Adequacy of Support Systems; Observe and Encourage Patient/Family Infant Attachment and Bonding Activities and Provide Feedback; Assess Patient/Family Understanding of 's Condition and Provide Accurate Information About Condition, Treatment and Prognosis; Assess for Patient/Family Behaviors that May Indicate Lack of Attachment; Provide a Safe Non-judgmental Environment for Patient/Family to Discuss Concerns; Promote Patient/Family Cohesiveness by Encouraging Discussion and Problem Solving; Exam Proctor Referral as Indicated (Martha Laughlin RN) Outcome: Patient/Family will Discuss Their Fears and the Possibility of Difficulties with Parenting (Martha Laughlin RN) Status: Ongoing (Martha Laughlin RN) Outcome: Patient/Family will Exhibit Appropriate Bonding Behaviors with (Martha Laughlin RN) Status: Ongoing (Martha Laughlin RN) Outcome: Patient/Family will Verbalize Positive Feelings and Demonstrate Affection and Caring Toward Infant (Martha Laughlin RN) Status: Ongoing (Martha Laughlin RN) State: Risk For (Martha Laughlin RN) Related To: ; (Martha Laughlin RN) Goal(s): Patient will have an Intake of Nutrients Sufficient to Meet Metabolic Needs (Martha Laughlin RN) Interventions: Nutritional Screening and Assessment per Hospital Policy; Consult Web Press Operator Apprentice for Further Assessment and Recommendations Regarding Food Preferences and Nutritional Support; Allow Patient to Plan and Order Diet when Possible; Monitor Laboratory Values That Indicate Nutritional Well-being; Consult Hematology Nurse for Nutritional Support Regarding Requirements; Document Actual Weight Initially and Weekly (Do Not Estimate); Encourage Patient Participation in Maintaining a Food Log as Indicated; Educate Patient on the Importance of Maintaining an Adequate Caloric Intake (Martha Laughlin RN) Outcome: Patient will Receive Adequate Calories and Fluid Volume to Meet Metabolic Needs (Martha Laughlin RN) Status: Ongoing (Martha Laughlin RN) Outcome: Patient will Select Foods or Meals that Support Adequate Nutrition (Martha Laughlin RN) Status: Ongoing (Martha Laughlin RN) State: Not Applicable (Martha Laughlin RN)
[2016-10-25] MEDS: IBUPROFEN 800 MG TABLET PO SCH ×3 (06:32→21:13)
[2016-10-25 07:08] LABS: HEMATOCRIT 25.6 % (36.0-47.0); HEMOGLOBIN 8.4 g/dL (12.0-15.5); HGB HCT DIFFERENCE -0.4; MEAN CORPUSCULAR HEMOGLOBIN 25.8 pg (27.0-33.4); MEAN CORPUSCULAR HGB CONC 32.7 g/dL (32.0-36.0); MEAN CORPUSCULAR VOLUME 79 fl (80-97); RED BLOOD COUNT 3.24 10^6/uL (3.72-5.28); RED CELL DISTRIBUTION WIDTH 14.4 % (11.5-14.0)
[2016-10-25] MEDS: SENNOSIDES/DOCUSATE 8.6-50 MG 1 EACH TABLET PO SCH (09:35)
[2016-10-25] MEDS: FERROUS SULFATE 325 MG TABLET PO SCH ×2 (09:36→17:31)
[2016-10-25] MEDS: PRENATAL VITAMIN W-O CA NO5/FE FUMARATE/FA CAPSULE PO SCH (09:36)
[2016-10-25] MEDS: DOCUSATE SODIUM 100 MG CAPSULE PO SCH ×2 (09:36→17:31)
--- NOTE | 2016-10-25 09:57 | PDOC PROGRESS REPORT ---
Subjective-OB Subjective: Post Delivery Day: 2 20 year old. Denies any needs at this time, states pain is well controlled, voiding without difficulty, lochia is stable. Physical Exam (OB) Vital Signs: Temp Pulse Resp BP Pulse Ox 97.9 F 51 L 16 106/54 L 100 10/25/16 07:45 10/25/16 07:45 10/25/16 07:45 10/25/16 07:45 10/25/16 07:45 Intake & Output 10/24/16 10/25/16 10/26/16 06:59 06:59 06:59 Intake Total 400 Balance 400 Weight 66 kg - Lochia Lochia Amount: Scant < 10 ml Lochia Color: Rubra/Red - Abdomen Description: Tender, Soft Hernia Present: No Fundal Description: Firm, Midline Fundal Height: u/u - u/2 Objective-Diagnostic Laboratory: 10/25/16 06:59 10/25/16 06:59 WBC 11.0 H RBC 3.24 L Hgb 8.4 L Hct 25.6 L MCV 79 L MCH 25.8 L MCHC 32.7 RDW 14.4 H Plt Count 157 Assessment and Plan(PN) - Assessment and Plan (1) Vaginal delivery Is this a current diagnosis for this admission?: YesPlan: routine pp care (2) Acute blood loss anemia Is this a current diagnosis for this admission?: YesPlan: ferrous sulfate increase dietary iron (3) Twins, both liveborn Is this a current diagnosis for this admission?: YesPlan: routine pp care - Time Spent with Patient Time with patient: Less than 15 minutes Critical Time spent with patient: Less than 15 minutes Medications reviewed and adjusted accordingly: Yes - Disposition Anticipated Discharge: Home Within: within 48 hours
[2016-10-26] MEDS: IBUPROFEN 800 MG TABLET PO SCH (05:33)
--- NOTE | 2016-10-26 06:20 | L&D General Admission ---
General Admit Datetime Report Generated by CPN: 10/26/2016 06:00 INFORMATION Patient Age: 20 (10/07/2016 14:36:QS system process) EDC: 11/24/2016 00:00 (10/07/2016 14:46:Nilam Cary RN) : 2 (10/07/2016 14:46:Melisa De Leon RN) Para: 1 (10/20/2016 15:52:ANITA Granda) Term: 1 (10/07/2016 14:46:ANITA Granda) : 0 (10/07/2016 14:46:ANITA Granda) Spontaneous Abortions: 0 (10/07/2016 14:46:ANITA Granda) Induced Abortions: 0 (10/07/2016 14:46:ANITA Granda) Livin (10/07/2016 14:46:ANITA Granda) Cesareans: 0 (10/07/2016 14:46:ANITA Granda) VBACs: 0 (10/07/2016 14:46:Yenifer Dawkins [facility]) Ectopic: 0 (10/07/2016 14:[facility]) Baby, Number in Womb: 2 (10/20/2016 15:52:Yenifer Dawkins [facility]) CARE Primary Associate Automation Engineer: [facility] (10/07/2016 14:46:Yenifer Dawkins [facility]) Associate Automation Engineer Other: Health Department (10/07/2016 14:46:Martha Laughlin RN) Adequate Care: No (10/07/2016 14:46:Martha Laughlin RN) Prepregnancy Weight (lb): 130 (10/07/2016 14:46:Martha Laughlin RN) Prepregnancy Weight (kg): 59.1 (10/07/2016 14:46:QS system process) Height (in): 68 (10/24/2016 04:35:QS system process) ALLERGIES Medication Allergy: No (10/07/2016 14:46:Martha Laughlin RN) Medication Allergies: No Known Allergies (10/24/2016) (10/24/2016 03:41:QS system process) Latex Allergy: No Latex Allergies (10/07/2016 14:46:Martha Laughlin RN) Food Allergies: denies (10/07/2016 14:46:Martha Laughlin RN) Environmental Allergies: denies (10/07/2016 14:46:Martha Laughlin RN) COMMUNICATION Primary Language: Citizen [place] (10/07/2016 14:46:Martha Laughlin RN) Medical Tx Preferred Language: [place] (10/07/2016 14:46:Martha Laughlin RN) [place] Communication Ability: Speaks Citizen [place]; Reads Citizen [place] (10/07/2016 14:46:Martha Laughlin RN) Communication Barrier(s): None (10/07/2016 14:46:Martha Laughlin RN) DEMOGRAPHICS Address: [address] [place] [id number] (10/07/2016 14:36:QS system process) Zipcode: [address] (10/07/2016 14:36:QS system process) Home (10/07/2016 14:36:QS system process) N: [phone] (10/07/2016 14:36:QS system process) Next of Kin Name: TIRSO MEJIA (10/07/2016 14:36:QS system process) Next of Kin (10/07/2016 14:36:QS system process) Next of Kin Relationship: MO (10/07/2016 14:36:QS system process) Date of : 1995 (10/07/2016 14:36:QS system process) Marital Status: Single (10/07/2016 14:36:QS system process) Sex: Female (10/07/2016 14:36:QS system process) Race: (10/07/2016 14:36:QS system process) Ethnicity: Non- or (10/07/2016 14:36:QS system process) Gnosticism: None (10/07/2016 14:36:QS system process) DRUG AND ALCOHOL USE Alcohol: No (10/07/2016 14:46:Martha Laughlin RN) Cigarettes: Former Smoker. [id number] (10/07/2016 14:46:Martha Laughlin RN) Marijuana: No (10/07/2016 14:46:Martha Laughlin RN) Cocaine: No (10/07/2016 14:46:Martha Laughlin RN) Other Illicit Drugs: No (10/07/2016 14:46:Martha Laughlin RN) VACCINE HISTORY Influenza Vaccine: Yes (10/07/2016 14:46:Martha Laughlin RN) Influenza Date: 2015 (10/07/2016 14:46:Martha Laughlin RN) Pneumococcal Vaccine: No (10/07/2016 14:46:Martha Laughlin RN) Tetanus Vaccine: Uncertain (10/07/2016 14:46:Martha Laughlin RN) Tdap Vaccine: Uncertain (10/07/2016 14:46:Martha Laughlin RN) Hepatitis B Vaccine: Yes (10/07/2016 14:46:Martha Laughlin RN) Environmental Health Nurse: [facility] (10/07/2016 14:46:Martha Laughlin RN) Feeding Preference: Breast (10/07/2016 14:46:Martha Laughlin RN) Benefit of Breast Feed Discussed: Yes (10/07/2016 14:46:Martha Laughlin RN) Circumcision: Yes (10/07/2016 14:46:Martha Laughlin RN) Classes Attended: No (10/07/2016 14:46:Martha Laughlin RN) Tubal Ligation: No (10/07/2016 14:46:Martha Laughlin RN) Tubal Authorization Signed: N/A (10/07/2016 14:46:Martha Laughlin RN) Consent: N/A (10/07/2016 14:46:Martha Laughlin RN) Consent Signed: N/A (10/07/2016 14:46:Martha Laughlin RN) Pain Management Plans: Epidural (10/07/2016 14:46:Martha Laughlin RN) Plans for Labor and Delivery: None (10/07/2016 14:46:Martha Laughlin RN) Support Person: (10/07/2016 14:46:Martha Laughlin RN) Support Person Relationship: (10/07/2016 14:46:Martha Laughlin RN) Cultural/Spritual Practice: No (10/07/2016 14:46:Martha Laughlin RN) Spir/Cult Dietary Needs: No (10/07/2016 14:46:Martha Laughlin RN) LIVING SITUATION/DISCHARGE PLAN Living Arrangements: House (10/07/2016 14:46:Martha Laughlin RN) Adequate Access to:: Electric; Heat; Refrigeration; Plumbing/Running water; Phone; Transportation (10/07/2016 14:46:Martha Laughlin RN) Discharge Operator And Truck Driver Person: (10/07/2016 14:46:Martha Laughlin RN) Person to Help after Discharge: Sir (10/07/2016 14:46:Martha Laughlin RN) Currently Using Commun Resources: Yes (10/07/2016 14:46:Martha Laughlin RN) Specify Current Resource Used: medicaid (10/07/2016 14:46:Martha Laughlin RN) Outside Agency/Director [employer]: No (10/07/2016 14:46:Martha Laughlin RN) Car Seat for Discharge: Yes (10/07/2016 14:46:Martha Laughlin RN) Adoption Requested: No (10/07/2016 14:46:Martha Laughlin RN) Pt Contact w/infant Post : N/A (10/07/2016 14:46:Martha Laughlin RN) LABS Blood Type: O Positive (10/07/2016 14:46:Nilam Cary RN) Antibody Screen: negative (10/07/2016 14:46:Nilam Cary RN) Hemoglobin: 8.4 L (10/25/2016 06:59:QS system process) Hematocrit: 25.6 L (10/25/2016 06:59:QS system process) MCV: 79 L (10/25/2016 06:59:QS system process) Group Beta Strep: unknown (10/07/2016 14:46:Martha Laughlin RN) Gonorrhea: Negative (10/07/2016 14:46:Nilam Cary RN) Chlamydia: Negative (10/07/2016 14:46:Nilam Cary RN) RPR/VDRL: Nonreactive (10/07/2016 14:46:Nilam Cary RN) HIV Results: nonreactive (10/07/2016 14:46:Nilam Cary RN) Rubella: Non-Immune (10/07/2016 14:46:Nilam Cary RN) Varicella: Susceptible (10/07/2016 14:46:Nilam Cary RN) OB/PREVIOUS HISTORY Previous Procedures: Ultrasound; NST (10/07/2016 14:46:Martha Laughlin RN) Current Procedures: Ultrasound; NST (10/07/2016 14:46:Martha Laughlin RN) History of Previous : No (10/07/2016 14:46:Martha Laughlin RN) History of Gestational Diabetes: No (10/07/2016 14:46:Martha Laughlin RN) History of PIH: No (10/07/2016 14:46:Martha Laughlin RN) History of Incompetent Cervix: No (10/07/2016 14:46:Martha Laughlin RN) History of Placenta Previa/Abrup: No (10/07/2016 14:46:Martha Laughlin RN) History of Macrosomia: No (10/07/2016 14:46:Martha Laughlin RN) History of IUGR: No (10/07/2016 14:46:Martha Laughlin RN) History of Hemorrhage: No (10/07/2016 14:46:Martha Laughlin RN) History of Loss/Stillborn: No (10/07/2016 14:46:Martha Laughlin RN) History of : No (10/07/2016 14:46:Martha Laughlin RN) History of D (Rh) Sensitization: No (10/07/2016 14:46:Martha Laughlin RN) History Recurrent Loss/Stillborn: No (10/07/2016 14:46:Martha Laughlin RN) History Depression/PP Depression: No (10/07/2016 14:46:Martha Laughlin RN) History of Uterine Anomaly/KIRA: No (10/07/2016 14:46:Martha Laughlin RN) History of Infertility: No (10/07/2016 14:46:Martha Laughlin RN) History of ART Treatment: No (10/07/2016 14:46:Martha Laughlin RN) History of KIRA: No (10/07/2016 14:46:Martha Laughlin RN) Comments Obstetrical History: g1-Jul 2015, female, , precipitous delivery @ 37 weeks, one hour in labor, received iron transfusions g2- current , mono/di twins, PROM/PTL @ 35+4 weeks gestation (10/07/2016 14:46:Martha Laughlin RN) MEDICAL HISTORY Med Hx Diabetes: No (10/07/2016 14:46:Martha Laughlin RN) Med Hx Hypertension: No (10/07/2016 14:46:Martha Laughlin RN) Med Hx Heart Disease: No (10/07/2016 14:46:Martha Laughlin RN) Med Hx Autoimmune Disorder: No (10/07/2016 14:46:Martha Laughlin RN) Med Hx Kidney Disease/UTI: No (10/07/2016 14:46:Martha Laughlin RN) Med Hx Neurologic/Epilepsy: No (10/07/2016 14:46:Martha Laughlin RN) Med Hx Psychiatric Disorders: No (10/07/2016 14:46:Martha Laughlin RN) Med Hx Hepatitis/Liver Disease: No (10/07/2016 14:46:Martha Laughlin RN) Med Hx Varicosities/Phlebitis: No (10/07/2016 14:46:Martha Laughlin RN) Med Hx Thyroid Dysfunction: No (10/07/2016 14:46:Martha Laughlin RN) Med Hx Trauma/Violence: No (10/07/2016 14:46:Martha Laughlin RN) Med Hx Blood Transfusion: No (10/07/2016 14:46:Martha Laughlin RN) Med Hx Pulmonary (Asthma,TB): No (10/07/2016 14:46:Martha Laughlin RN) Med Hx Breast: No (10/07/2016 14:46:Martha Laughlin RN) Med Hx CHART WRITER Surgery: No (10/07/2016 14:46:Martha Laughlin RN) Med Hx Hospitalization/Surgery: Yes (10/07/2016 14:46:Martha Laughlin RN) Med Hx Anesthetic Complications: No (10/07/2016 14:46:Martha Laughlin RN) Med Hx Abnormal Pap Smear: No (10/07/2016 14:46:Martha Laughlin RN) Other Medical Diseases: Yes (10/07/2016 14:46:Martha Laughlin RN) Med Hx Significant Family Hx: No (10/07/2016 14:46:Martha Laughlin RN) Details of Med/Surg Hx: anemia received iron transfusion post delivery, x 1, with twins, (10/07/2016 14:46:Martha Laughlin RN) INFECTIOUS HISTORY Inf Hx Gonorrhea: No (10/07/2016 14:46:Martha Laughlin RN) Inf Hx Chlamydia: No (10/07/2016 14:46:Martha Laughlin RN) Inf Hx Syphilis: No (10/07/2016 14:46:Martha Laughlin RN) Inf Hx HIV/AIDS: No (10/07/2016 14:46:Martha Laughlin RN) Inf Hx Human Papilloma Virus: No (10/07/2016 14:46:Martha Laughlin RN) Inf Hx Pt/Partner Genital Herpes: No (10/07/2016 14:46:Martha Laughlin RN) Inf Hx Tuberculosis/Exposure: No (10/07/2016 14:46:Martha Laughlin RN) Inf Hx Hepatitis B,C: No (10/07/2016 14:46:Martha Laughlin RN) Inf Hx Rash or Viral Illness: No (10/07/2016 14:46:Martha Laughlin RN) GENETIC HISTORY Gen Hx Age >=35 at AUDREY: No (10/07/2016 14:46:Martha Laughlin RN) Gen Hx Thalassemia: No (10/07/2016 14:46:Martha Laughlin RN) Gen Hx Congenital Heart Defect: No (10/07/2016 14:46:Martha Laughlin RN) Gen Hx Neural Tube Defect: No (10/07/2016 14:46:Martha Laughlin RN) Gen Hx Down's Syndrome: No (10/07/2016 14:46:Martha Laughlin RN) Gen Hx James-Sachs: No (10/07/2016 14:46:Martha Laughlin RN) Gen Hx Richard: No (10/07/2016 14:46:Martha Laughlin RN) Gen Hx Familial Dysautonomia: No (10/07/2016 14:46:Martha Laughlin RN) Gen Hx Sickle Cell Disease/Trait: No (10/07/2016 14:46:Martha Laughlin RN) Gen Hx Hemophilia/Blood Disorder: No (10/07/2016 14:46:Martha Laughlin RN) Gen Hx Muscular Dystrophy: No (10/07/2016 14:46:Martha Laughlin RN) Gen Hx Cystic Fibrosis: No (10/07/2016 14:46:Martha Laughlin RN) Gen Hx Huntingtons Chorea: No (10/07/2016 14:46:Martha Laughlin RN) Gen Hx Mental Retardation/Autism: No (10/07/2016 14:46:Martha Laughlin RN) Gen Hx Tested for Fragile X: No (10/07/2016 14:46:Martha Laughlin RN) Gen Hx Other Inher/Chromosomal: No (10/07/2016 14:46:Martha Laughlin RN) Gen Hx Maternal Metabolic DO: No (10/07/2016 14:46:Martha Laughlin RN) Gen Hx Pt Father or FOB Defect: No (10/07/2016 14:46:Martha Laughlin RN) Gen Hx Other Genetic History: No (10/07/2016 14:46:Martha Laughlin RN) Gen Hx Drugs/Meds since LMP: Yes (10/07/2016 14:46:Martha Laughlin RN) Gen Hx Medications: tylenol, vitamins, iron (10/07/2016 14:46:Martha Laughlin RN)
--- NOTE | 2016-10-26 06:20 | L&D Current Admission ---
Current Admit Datetime Report Generated by CPN: 10/26/2016 06:00 ADMISSION INFORMATION Current Admit Date/Time: 10/24/2016 00:54 (10/24/2016 00:54:Martha Laughlin RN) Reason for Admission: Rupture of Membranes (10/24/2016 00:54:Martha Laughlin RN) Other Reason for Admission: [place]/Di twins vertex/vertex SROM @ 2330 (10/24/2016 00:54:Martha Laughlin RN) Chief Complaint: Suspected Rupture of Membranes (10/24/2016 00:54:Martha Laughlin RN) Medications During : Ferrous Sulfate (Iron); Vitamin; Acetaminophen (Tylenol) (10/24/2016 00:54:Martha Laughlin RN) EGA per Dates: 35.4 (10/24/2016 00:54:QS system process) Method of Arrival: Wheelchair (10/24/2016 00:54:Martha Laughlin RN) Admitted From: Home (10/24/2016 00:54:Martha Laughlin RN) Reason for Induction: Not Applicable (10/24/2016 00:54:Martha Laughlin RN) Records Available: Yes (10/24/2016 00:54:Martha Laughlin RN) General Admission Information: Reviewed (10/24/2016 00:54:Martha Laughlin RN) General Admission Reviewed By: CAMRON Laughlin (10/24/2016 00:54:Martha Laughlin RN) BELONGINGS/ADVANCED DIRECTIVES Other Belongings: see valuable consents (10/24/2016 00:54:Martha Laughlin RN) Disposition of Belongings: Kept with Patient (10/24/2016 00:54:Martha Laughlin RN) Advance Direct for Healthcare: No, and Wants No Information (10/24/2016 00:54:Martha Laughlin RN) Durable Power of Vault Manager: No (10/24/2016 00:54:Martha Laughlin RN) Living Will: No (10/24/2016 00:54:Martha Laughlin RN) Organ Donor: Yes (10/24/2016 00:54:Martha Laughlin RN) Pt Rights Information Given: Yes (10/24/2016 00:54:Martha Laughlin RN) Pt Understands Pt Rights: Yes (10/24/2016 00:54:Martha Laughlin RN) Patient Rights Comments: Given in patient access (10/24/2016 00:54:Martha Laughlin RN) LEARNING ASSESSMENT Knowledge Level: Understands L_D Process; Understands Care Activities; Had Pre-Hospital Education; Understands Diagnosis (10/24/2016 00:54:Martha Laughlin RN) Barriers to Learning: Pain (10/24/2016 00:54:Martha Laughlin RN) Learning Readiness: Motivated (10/24/2016 00:54:Martha Laughlin RN) Learns Best By: 1 to 1 Instruction; Reading; Videos; Group Discussion; Demonstration (10/24/2016 00:54:Martha Laughlin RN) Learning Needs: Labor and Delivery Process; Pain Management; Symptoms to Report; Treatment Plan; Medication; Diagnosis; Nutrition; Equipment; Care; Community Resources (10/24/2016 00:54:Martha Laughlin RN) DOMESTIC VIOLANCE SCREENING Dom Viol Threatened/Hurt: No (10/24/2016 00:54:Martha Laughlin RN) Hx of Abuse/Neglect past 2yrs: No (10/24/2016 00:54:Martha Laughlin RN) Feel Unsafe Going Home: No (10/24/2016 00:54:Martha Laughlin RN) Addt'l Observ Indicating Abuse: No (10/24/2016 00:54:Martha Laughlin RN) Reason Unable to Complete Screen: No Opportunity to Talk Privately (10/24/2016 00:54:Martha Laughlin RN) Considered Personal Harm/Suicide: No (10/24/2016 00:54:Martha Laughlin RN) NUTRITIONAL/FUNCTIONAL SCREENING Problem with Appetite >5 Days: No (10/24/2016 00:54:Martha Laughlin RN) Chew/Swallow Difficulties: No (10/24/2016 00:54:Martha Laughlin RN) Inappropriate Wt Gain/Loss: No (10/24/2016 00:54:Martha Laughlin RN) Presence Skin Breakdown/Ulcer: No (10/24/2016 00:54:Martha Laughlin RN) Special Diet: No (10/24/2016 00:54:Martha Laughlin RN) Pt Requests Cider Press Operator Visit: No (10/24/2016 00:54:Martha Laughlin RN) Hx of Any of the Following?: N/A (10/24/2016 00:54:Martha Laughlin RN) New Diagnosis of: N/A (10/24/2016 00:54:Martha Laughlin RN) Requires Assist w/Ambulation: No (10/24/2016 00:54:Martha Laughlin RN) Uses Assist Device to Ambulate: No (10/24/2016 00:54:Martha Laughlin RN) Pt Requires Help w/ADL's: No (10/24/2016 00:54:Martha Laughlin RN)
[2016-10-26 08:44] VITALS: BP 111/64
[2016-10-26] MEDS: FERROUS SULFATE 325 MG TABLET PO SCH (09:20)
[2016-10-26] MEDS: DOCUSATE SODIUM 100 MG CAPSULE PO SCH (09:20)
[2016-10-26] MEDS: SENNOSIDES/DOCUSATE 8.6-50 MG 1 EACH TABLET PO SCH (09:20)
[2016-10-26] MEDS: PRENATAL VITAMIN W-O CA NO5/FE FUMARATE/FA CAPSULE PO SCH (09:20)
--- NOTE | 2016-10-26 09:54 | PDOC PROGRESS REPORT ---
Subjective-OB Subjective: Post Delivery Day: 20 year old. Denies any needs at this time Doing well, no c/o, ready to go home, has a 13th month old daughter that needs her, breast feeding Physical Exam (OB) Vital Signs: Temp Pulse Resp BP Pulse Ox 98.1 F 67 16 111/64 100 10/26/16 09:33 10/26/16 09:33 10/26/16 09:33 10/26/16 07:54 10/26/16 09:33 Intake & Output 10/25/16 10/26/16 10/27/16 06:59 06:59 06:59 Intake Total 400 300 Balance 400 300 - Lochia Lochia Amount: Scant < 10 ml Lochia Color: Rubra/Red - Abdomen Description: Soft, Round Hernia Present: No Fundal Description: Firm, Midline Fundal Height: u/u - u/2 Objective-Diagnostic Laboratory: 10/25/16 06:59 Assessment and Plan(PN) - Assessment and Plan (1) Vaginal delivery Is this a current diagnosis for this admission?: Yes (2) Acute blood loss anemia Is this a current diagnosis for this admission?: Yes (3) Twins, both liveborn Is this a current diagnosis for this admission?: Yes - Time Spent with Patient Medications reviewed and adjusted accordingly: Yes - Disposition Anticipated Discharge: Home Within: Other - home today
--- NOTE | 2016-10-26 10:00 | PDOC DISCHARGE SUMMARY ---
Discharge Summary-OB Discharge Date: 10/26/16 - Final Diagnosis (1) Vaginal delivery Is this a current diagnosis for this admission?: Yes (2) Acute blood loss anemia Is this a current diagnosis for this admission?: Yes (3) Twins, both liveborn Is this a current diagnosis for this admission?: Yes - Discharge Medication Home Medications: Ferrous Sulfate [Feosol 325 mg Tablet] 325 mg PO DAILY 10/07/16 Pnv with Ca,No.72/Iron/FA [Pnv Plus Multivit Tab] 1 each PO DAILY 10/07 Gestational Age: 35.4 Reason(s) for Admission: Onset of Labor, PROM, Twins Procedures: NST, Ultrasound Intrapartum Procedure(s): Spontaneous Vaginal Delivery - Data Baby 1 Male at 1 minute: 7 at 5 minutes: 8 Weight: 2.126 kg Home with Mother: No Complications: Yes - Baby 2 Male at 1 minute: 7 at 5 minutes: 9 Weight: 2.268 kg Home with Mother: No Complications: Yes - - Diagnosis Test Laboratory: Temp Pulse Resp BP Pulse Ox 98.1 F 67 16 111/64 100 10/26/16 09:33 10/26/16 09:33 10/26/16 09:33 10/26/16 07:54 10/26/16 09:33 10/24/16 10/25/16 00:56 06:59 RBC 3.33 L 3.24 L Hgb 8.5 L 8.4 L Hct 26.0 L 25.6 L - Discharge information/Instructions Discharge Activity: Activity As Tolerated, Balance Activity w/Rest, Pelvic Rest , No tub bath Discharge Diet: As Tolerated, Regular Disposition: HOME, SELF-CARE Follow up with: [facility] in: 4, Weeks
--- NOTE | 2016-10-27 06:21 | L&D Current Admission ---
Current Admit Datetime Report Generated by CPN: 10/27/2016 06:00 ADMISSION INFORMATION Current Admit Date/Time: 10/24/2016 00:54 (10/24/2016 00:54:Martha Laughlin RN) Reason for Admission: Rupture of Membranes (10/24/2016 00:54:Martha Laughlin RN) Other Reason for Admission: [place]/Di twins vertex/vertex SROM @ 2330 (10/24/2016 00:54:Martha Laughlin RN) Chief Complaint: Suspected Rupture of Membranes (10/24/2016 00:54:Martha Laughlin RN) Medications During : Ferrous Sulfate (Iron); Vitamin; Acetaminophen (Tylenol) (10/24/2016 00:54:Martha Laughlin RN) EGA per Dates: 35.4 (10/24/2016 00:54:QS system process) Method of Arrival: Wheelchair (10/24/2016 00:54:Martha Laughlin RN) Admitted From: Home (10/24/2016 00:54:Martha Laughlin RN) Reason for Induction: Not Applicable (10/24/2016 00:54:Martha Laughlin RN) Records Available: Yes (10/24/2016 00:54:Martha Laughlin RN) General Admission Information: Reviewed (10/24/2016 00:54:Martha Laughlin RN) General Admission Reviewed By: CAMRON Laughlin (10/24/2016 00:54:Martha Laughlin RN) BELONGINGS/ADVANCED DIRECTIVES Other Belongings: see valuable consents (10/24/2016 00:54:Martha Laughlin RN) Disposition of Belongings: Kept with Patient (10/24/2016 00:54:Martha Laughlin RN) Advance Direct for Healthcare: No, and Wants No Information (10/24/2016 00:54:Martha Laughlin RN) Durable Power of Thermodynamic Physicist: No (10/24/2016 00:54:Martha Laughlin RN) Living Will: No (10/24/2016 00:54:Martha Laughlin RN) Organ Donor: Yes (10/24/2016 00:54:Martha Laughlin RN) Pt Rights Information Given: Yes (10/24/2016 00:54:Martha Laughlni RN) Pt Understands Pt Rights: Yes (10/24/2016 00:54:Martha Laughlin RN) Patient Rights Comments: Given in patient access (10/24/2016 00:54:Martha Laughlin RN) LEARNING ASSESSMENT Knowledge Level: Understands L_D Process; Understands Care Activities; Had Pre-Hospital Education; Understands Diagnosis (10/24/2016 00:54:Martha Laughlin RN) Barriers to Learning: Pain (10/24/2016 00:54:Martha Laughlin RN) Learning Readiness: Motivated (10/24/2016 00:54:Martha Laughlin RN) Learns Best By: 1 to 1 Instruction; Reading; Videos; Group Discussion; Demonstration (10/24/2016 00:54:Martha Laughlin RN) Learning Needs: Labor and Delivery Process; Pain Management; Symptoms to Report; Treatment Plan; Medication; Diagnosis; Nutrition; Equipment; Care; Community Resources (10/24/2016 00:54:Martha Laughlin RN) DOMESTIC VIOLANCE SCREENING Dom Viol Threatened/Hurt: No (10/24/2016 00:54:Martha Laughlin RN) Hx of Abuse/Neglect past 2yrs: No (10/24/2016 00:54:Martha Laughlin RN) Feel Unsafe Going Home: No (10/24/2016 00:54:Martha Laughlin RN) Addt'l Observ Indicating Abuse: No (10/24/2016 00:54:Martha Laughlin RN) Reason Unable to Complete Screen: No Opportunity to Talk Privately (10/24/2016 00:54:Martha Laughlin RN) Considered Personal Harm/Suicide: No (10/24/2016 00:54:Martha Laughlin RN) NUTRITIONAL/FUNCTIONAL SCREENING Problem with Appetite >5 Days: No (10/24/2016 00:54:Martha Laughlin RN) Chew/Swallow Difficulties: No (10/24/2016 00:54:Martha Laughlin RN) Inappropriate Wt Gain/Loss: No (10/24/2016 00:54:Martha Laughlin RN) Presence Skin Breakdown/Ulcer: No (10/24/2016 00:54:Martha Laughlin RN) Special Diet: No (10/24/2016 00:54:Martha Laughlin RN) Pt Requests Hollock Maker Visit: No (10/24/2016 00:54:Martha Laughlin RN) Hx of Any of the Following?: N/A (10/24/2016 00:54:Martha Laughlin RN) New Diagnosis of: N/A (10/24/2016 00:54:Martha Laughlin RN) Requires Assist w/Ambulation: No (10/24/2016 00:54:Martha Laughlin RN) Uses Assist Device to Ambulate: No (10/24/2016 00:54:Martha Laughlin RN) Pt Requires Help w/ADL's: No (10/24/2016 00:54:Martha Laughlin RN)
--- NOTE | 2016-10-27 06:21 | L&D General Admission ---
General Admit Datetime Report Generated by CPN: 10/27/2016 06:00 INFORMATION Patient Age: 20 (10/07/2016 14:36:QS system process) EDC: 11/24/2016 00:00 (10/07/2016 14:46:Nilam Cary RN) : 2 (10/07/2016 14:46:Melisa De Leon RN) Para: 1 (10/20/2016 15:52:ANITA Granda) Term: 1 (10/07/2016 14:46:ANITA Granda) : 0 (10/07/2016 14:46:ANITA Granda) Spontaneous Abortions: 0 (10/07/2016 14:46:ANITA Granda) Induced Abortions: 0 (10/07/2016 14:46:ANITA Granda) Livin (10/07/2016 14:46:ANITA Granda) Cesareans: 0 (10/07/2016 14:46:ANITA Granda) VBACs: 0 (10/07/2016 14:46:Yenifer Dawkins [facility]) Ectopic: 0 (10/07/2016 14:46:[facility]) Baby, Number in Womb: 2 (10/20/2016 15:52:Yenifer Dawkins [facility]) CARE Primary Sales Engagement Executive: [facility] (10/07/2016 14:46:Yenifer Dawkins [facility]) Sales Engagement Executive Other: Health Department (10/07/2016 14:46:Martha Laughlin RN) Adequate Care: No (10/07/2016 14:46:Martha Laughlin RN) Prepregnancy Weight (lb): 130 (10/07/2016 14:46:Martha Laughlin RN) Prepregnancy Weight (kg): 59.1 (10/07/2016 14:46:QS system process) Height (in): 68 (10/26/2016 11:40:QS system process) ALLERGIES Medication Allergy: No (10/07/2016 14:46:Martha Laughlin RN) Medication Allergies: No Known Allergies (10/24/2016) (10/24/2016 03:41:QS system process) Latex Allergy: No Latex Allergies (10/07/2016 14:46:Martha Laughlin RN) Food Allergies: denies (10/07/2016 14:46:Martha Laughlin RN) Environmental Allergies: denies (10/07/2016 14:46:Martha Laughlin RN) COMMUNICATION Primary Language: [place] Islander (10/07/2016 14:46:Martha Laughlin RN) Medical Tx Preferred Language: [place]er (10/07/2016 14:46:Martha Laughlin RN) [place]er Communication Ability: Speaks [place] Islander; Reads [place]er (10/07/2016 14:46:Martha Laughlin RN) Communication Barrier(s): None (10/07/2016 14:46:Martha Laughlin RN) DEMOGRAPHICS Address: [address] [place] [id number] (10/07/2016 14:36:QS system process) Zipcode: [address] (10/07/2016 14:36:QS system process) Home (10/07/2016 14:36:QS system process) N: [id number] (10/07/2016 14:36:QS system process) Next of Kin Name: TIRSO MEJIA (10/07/2016 14:36:QS system process) Next of Kin (10/07/2016 14:36:QS system process) Next of Kin Relationship: MO (10/07/2016 14:36:QS system process) Date of : 1995 (10/07/2016 14:36:QS system process) Marital Status: Single (10/07/2016 14:36:QS system process) Sex: Female (10/07/2016 14:36:QS system process) Race: (10/07/2016 14:36:QS system process) Ethnicity: Non- or (10/07/2016 14:36:QS system process) Judaism: None (10/07/2016 14:36:QS system process) DRUG AND ALCOHOL USE Alcohol: No (10/07/2016 14:46:Martha Laughlin RN) Cigarettes: Former Smoker. [id number] (10/07/2016 14:46:Martha Laughlin RN) Marijuana: No (10/07/2016 14:46:Martha Laughlin RN) Cocaine: No (10/07/2016 14:46:Martha Laughlin RN) Other Illicit Drugs: No (10/07/2016 14:46:Martha Laughlin RN) VACCINE HISTORY Influenza Vaccine: Yes (10/07/2016 14:46:Martha Laughlin RN) Influenza Date: 2015 (10/07/2016 14:46:Martha Laughlin RN) Pneumococcal Vaccine: No (10/07/2016 14:46:Martha Laughlin RN) Tetanus Vaccine: Uncertain (10/07/2016 14:46:Martha Laughlin RN) Tdap Vaccine: Uncertain (10/07/2016 14:46:Martha Laughlin RN) Hepatitis B Vaccine: Yes (10/07/2016 14:46:Martha Laughlin RN) Book Store Associate: [facility] (10/07/2016 14:46:Martha Laughlin RN) Feeding Preference: Breast (10/07/2016 14:46:Martha Laughlin RN) Benefit of Breast Feed Discussed: Yes (10/07/2016 14:46:Martha Laughlin RN) Circumcision: Yes (10/07/2016 14:46:Martha Laughlin RN) Classes Attended: No (10/07/2016 14:46:Martha Laughlin RN) Tubal Ligation: No (10/07/2016 14:46:Martha Laughlin RN) Tubal Authorization Signed: N/A (10/07/2016 14:46:Martha Laughlin RN) Consent: N/A (10/07/2016 14:46:Martha Laughlin RN) Consent Signed: N/A (10/07/2016 14:46:Martha Laughlin RN) Pain Management Plans: Epidural (10/07/2016 14:46:Martha Laughlin RN) Plans for Labor and Delivery: None (10/07/2016 14:46:Martha Laughlin RN) Support Person: (10/07/2016 14:46:Martha Laughlin RN) Support Person Relationship: (10/07/2016 14:46:Martha Laughlin RN) Cultural/Spritual Practice: No (10/07/2016 14:46:Martha Laughlin RN) Spir/Cult Dietary Needs: No (10/07/2016 14:46:Martha Laughlin RN) LIVING SITUATION/DISCHARGE PLAN Living Arrangements: House (10/07/2016 14:46:Martha Laughlin RN) Adequate Access to:: Electric; Heat; Refrigeration; Plumbing/Running water; Phone; Transportation (10/07/2016 14:46:Matrha Laughlin RN) Discharge Electrician Helper Person: (10/07/2016 14:46:Martha Laughlin RN) Person to Help after Discharge: Sir (10/07/2016 14:46:Martha Laughlin RN) Currently Using Commun Resources: Yes (10/07/2016 14:46:Martha Laughlin RN) Specify Current Resource Used: medicaid (10/07/2016 14:46:Martha Laughlin RN) Outside Agency/Supervisor Electronics Assembly: No (10/07/2016 14:46:Martha Laughlin RN) Car Seat for Discharge: Yes (10/07/2016 14:46:Martha Laughlin RN) Adoption Requested: No (10/07/2016 14:46:Martha Laughlin RN) Pt Contact w/infant Post : N/A (10/07/2016 14:46:Martha Laughlin RN) LABS Blood Type: O Positive (10/07/2016 14:46:Nilam Cary RN) Antibody Screen: negative (10/07/2016 14:46:Nilam Cary RN) Hemoglobin: 8.4 L (10/25/2016 06:59:QS system process) Hematocrit: 25.6 L (10/25/2016 06:59:QS system process) MCV: 79 L (10/25/2016 06:59:QS system process) Group Beta Strep: unknown (10/07/2016 14:46:Martha Laughlin RN) Gonorrhea: Negative (10/07/2016 14:46:Nilam Cary RN) Chlamydia: Negative (10/07/2016 14:46:Nilam Cary RN) RPR/VDRL: Nonreactive (10/07/2016 14:46:Nilam Cary RN) HIV Results: nonreactive (10/07/2016 14:46:Nilam Cary RN) Rubella: Non-Immune (10/07/2016 14:46:Nilam Cary RN) Varicella: Susceptible (10/07/2016 14:46:Nilam Cary RN) OB/PREVIOUS HISTORY Previous Procedures: Ultrasound; NST (10/07/2016 14:46:Martha Laughlin RN) Current Procedures: Ultrasound; NST (10/07/2016 14:46:Martha Laughlin RN) History of Previous : No (10/07/2016 14:46:Martha Laughlin RN) History of Gestational Diabetes: No (10/07/2016 14:46:Martha Laughlin RN) History of PIH: No (10/07/2016 14:46:Martha Laughlin RN) History of Incompetent Cervix: No (10/07/2016 14:46:Martha Lauglhin RN) History of Placenta Previa/Abrup: No (10/07/2016 14:46:Martha Laughlin RN) History of Macrosomia: No (10/07/2016 14:46:Martha Laughlin RN) History of IUGR: No (10/07/2016 14:46:Martha Laughlin RN) History of Hemorrhage: No (10/07/2016 14:46:Martha Laughlin RN) History of Loss/Stillborn: No (10/07/2016 14:46:Martha Laughlin RN) History of : No (10/07/2016 14:46:Martha Laughlin RN) History of D (Rh) Sensitization: No (10/07/2016 14:46:Martha Laughlin RN) History Recurrent Loss/Stillborn: No (10/07/2016 14:46:Martha Laughlin RN) History Depression/PP Depression: No (10/07/2016 14:46:Martha Laughlin RN) History of Uterine Anomaly/KIRA: No (10/07/2016 14:46:Martha Laughlin RN) History of Infertility: No (10/07/2016 14:46:Martha Laughlin RN) History of ART Treatment: No (10/07/2016 14:46:Martha Laughlin RN) History of KIRA: No (10/07/2016 14:46:Martha Laughlin RN) Comments Obstetrical History: g1-Jul 2015, female, , precipitous delivery @ 37 weeks, one hour in labor, received iron transfusions g2- current , mono/di twins, PROM/PTL @ 35+4 weeks gestation (10/07/2016 14:46:Martha Laughlin RN) MEDICAL HISTORY Med Hx Diabetes: No (10/07/2016 14:46:Martha Laughlin RN) Med Hx Hypertension: No (10/07/2016 14:46:Martha Laughlin RN) Med Hx Heart Disease: No (10/07/2016 14:46:Martha Laughlin RN) Med Hx Autoimmune Disorder: No (10/07/2016 14:46:Martha Laughlin RN) Med Hx Kidney Disease/UTI: No (10/07/2016 14:46:Martha Laughlin RN) Med Hx Neurologic/Epilepsy: No (10/07/2016 14:46:Martha Laughlin RN) Med Hx Psychiatric Disorders: No (10/07/2016 14:46:Martha Laughlin RN) Med Hx Hepatitis/Liver Disease: No (10/07/2016 14:46:Martha Laughlin RN) Med Hx Varicosities/Phlebitis: No (10/07/2016 14:46:Martha Laughlin RN) Med Hx Thyroid Dysfunction: No (10/07/2016 14:46:Martha Laughlin RN) Med Hx Trauma/Violence: No (10/07/2016 14:46:Martha Laughlin RN) Med Hx Blood Transfusion: No (10/07/2016 14:46:Martha Laughlin RN) Med Hx Pulmonary (Asthma,TB): No (10/07/2016 14:46:Martha Laughlin RN) Med Hx Breast: No (10/07/2016 14:46:Martha Laughlin RN) Med Hx DANCE COACH Surgery: No (10/07/2016 14:46:Martha Laughlin RN) Med Hx Hospitalization/Surgery: Yes (10/07/2016 14:46:Martha Laughlin RN) Med Hx Anesthetic Complications: No (10/07/2016 14:46:Martha Laughlin RN) Med Hx Abnormal Pap Smear: No (10/07/2016 14:46:Martha Laughlin RN) Other Medical Diseases: Yes (10/07/2016 14:46:Martha Laughlin RN) Med Hx Significant Family Hx: No (10/07/2016 14:46:Martha Laughlin RN) Details of Med/Surg Hx: anemia received iron transfusion post delivery, x 1, with twins, (10/07/2016 14:46:Martha Laughlin RN) INFECTIOUS HISTORY Inf Hx Gonorrhea: No (10/07/2016 14:46:Martha Laughlin RN) Inf Hx Chlamydia: No (10/07/2016 14:46:Martha Laughlin RN) Inf Hx Syphilis: No (10/07/2016 14:46:Martha Laughlin RN) Inf Hx HIV/AIDS: No (10/07/2016 14:46:Martha Laughlin RN) Inf Hx Human Papilloma Virus: No (10/07/2016 14:46:Martha Laughlin RN) Inf Hx Pt/Partner Genital Herpes: No (10/07/2016 14:46:Martha Laughlin RN) Inf Hx Tuberculosis/Exposure: No (10/07/2016 14:46:Martha Laughlin RN) Inf Hx Hepatitis B,C: No (10/07/2016 14:46:Martha Laughlin RN) Inf Hx Rash or Viral Illness: No (10/07/2016 14:46:Martha Laughlin RN) GENETIC HISTORY Gen Hx Age >=35 at AUDREY: No (10/07/2016 14:46:Martha Laughlin RN) Gen Hx Thalassemia: No (10/07/2016 14:46:Martha Laughlin RN) Gen Hx Congenital Heart Defect: No (10/07/2016 14:46:Martha Laughlin RN) Gen Hx Neural Tube Defect: No (10/07/2016 14:46:Martha Laughlin RN) Gen Hx Down's Syndrome: No (10/07/2016 14:46:Martha Laughlin RN) Gen Hx James-Sachs: No (10/07/2016 14:46:Martha Laughlin RN) Gen Hx Richard: No (10/07/2016 14:46:Martha Laughlin RN) Gen Hx Familial Dysautonomia: No (10/07/2016 14:46:Martha Laughlin RN) Gen Hx Sickle Cell Disease/Trait: No (10/07/2016 14:46:Martha Laughlin RN) Gen Hx Hemophilia/Blood Disorder: No (10/07/2016 14:46:Martha Laughlin RN) Gen Hx Muscular Dystrophy: No (10/07/2016 14:46:Martha Laughlin RN) Gen Hx Cystic Fibrosis: No (10/07/2016 14:46:Martha Laughlin RN) Gen Hx Huntingtons Chorea: No (10/07/2016 14:46:Martha Laughlin RN) Gen Hx Mental Retardation/Autism: No (10/07/2016 14:46:Martha Laughlin RN) Gen Hx Tested for Fragile X: No (10/07/2016 14:46:Martha Laughlin RN) Gen Hx Other Inher/Chromosomal: No (10/07/2016 14:46:Martha Laughlin RN) Gen Hx Maternal Metabolic DO: No (10/07/2016 14:46:Martha Laughlin RN) Gen Hx Pt Father or FOB Defect: No (10/07/2016 14:46:Martha Laughlin RN) Gen Hx Other Genetic History: No (10/07/2016 14:46:Martha Laughlin RN) Gen Hx Drugs/Meds since LMP: Yes (10/07/2016 14:46:Martha Laughlin RN) Gen Hx Medications: tylenol, vitamins, iron (10/07/2016 14:46:Martha Laughlin RN)
[2016-10-27 14:17] LABS: URINE BARBITURATES SCREEN NEGATIVE; URINE METHADONE SCREEN NEGATIVE; URINE PHENCYCLIDINE SCREEN NEGATIVE
--- NOTE | 2016-10-28 06:21 | L&D General Admission ---
General Admit Datetime Report Generated by CPN: 10/28/2016 06:00 INFORMATION Patient Age: 20 (10/07/2016 14:36:QS system process) EDC: 11/24/2016 00:00 (10/07/2016 14:46:Nilam Cary RN) : 2 (10/07/2016 14:46:Melisa De Leon RN) Para: 1 (10/20/2016 15:52:ANITA Granda) Term: 1 (10/07/2016 14:46:ANITA Granda) : 0 (10/07/2016 14:46:ANITA Granda) Spontaneous Abortions: 0 (10/07/2016 14:46:ANITA Granda) Induced Abortions: 0 (10/07/2016 14:46:ANITA Granda) Livin (10/07/2016 14:46:ANITA Granda) Cesareans: 0 (10/07/2016 14:46:ANITA Granda) VBACs: 0 (10/07/2016 14:46:Yenifer Dawkins [facility]) Ectopic: 0 (10/07/2016 14:46:[facility]) Baby, Number in Womb: 2 (10/20/2016 15:52:Yenifer Dawkins [facility]) CARE Primary Hydrometer Calibrator: [email or web address] (10/07/2016 14:46:Yenifer Dawkins [facility]) Hydrometer Calibrator Other: Health Department (10/07/2016 14:46:Martha Laughlin RN) Adequate Care: No (10/07/2016 14:46:Martha Laughlin RN) Prepregnancy Weight (lb): 130 (10/07/2016 14:46:Martha Laughlin RN) Prepregnancy Weight (kg): 59.1 (10/07/2016 14:46:QS system process) Height (in): 68 (10/26/2016 11:40:QS system process) ALLERGIES Medication Allergy: No (10/07/2016 14:46:Martha Laughlin RN) Medication Allergies: No Known Allergies (10/24/2016) (10/24/2016 03:41:QS system process) Latex Allergy: No Latex Allergies (10/07/2016 14:46:Martha Laughlin RN) Food Allergies: denies (10/07/2016 14:46:Martha Laughlin RN) Environmental Allergies: denies (10/07/2016 14:46:Martha Laughlin RN) COMMUNICATION Primary Language: Senegalese (10/07/2016 14:46:Martha Laughlin RN) Medical Tx Preferred Language: Senegalese (10/07/2016 14:46:Martha Laughlin RN) Senegalese Communication Ability: Speaks Senegalese; Reads Senegalese (10/07/2016 14:46:Martha Laughlin RN) Communication Barrier(s): None (10/07/2016 14:46:Martha Laughlin RN) DEMOGRAPHICS Address: [address] [place] [id number] (10/07/2016 14:36:QS system process) Zipcode: [address] (10/07/2016 14:36:QS system process) Home (10/07/2016 14:36:QS system process) N: [phone] (10/07/2016 14:36:QS system process) Next of Kin Name: TIRSO MEJIA (10/07/2016 14:36:QS system process) Next of Kin (10/07/2016 14:36:QS system process) Next of Kin Relationship: MO (10/07/2016 14:36:QS system process) Date of : 1995 (10/07/2016 14:36:QS system process) Marital Status: Single (10/07/2016 14:36:QS system process) Sex: Female (10/07/2016 14:36:QS system process) Race: (10/07/2016 14:36:QS system process) Ethnicity: Non- or (10/07/2016 14:36:QS system process) Shinto: None (10/07/2016 14:36:QS system process) DRUG AND ALCOHOL USE Alcohol: No (10/07/2016 14:46:Martha Laughlin RN) Cigarettes: Former Smoker. [id number] (10/07/2016 14:46:Martha Laughlin RN) Marijuana: No (10/07/2016 14:46:Martha Laughlin RN) Cocaine: No (10/07/2016 14:46:Martha Laughlin RN) Other Illicit Drugs: No (10/07/2016 14:46:Martha Laughlin RN) VACCINE HISTORY Influenza Vaccine: Yes (10/07/2016 14:46:Martha Laughlin RN) Influenza Date: 2015 (10/07/2016 14:46:Martha Laughlin RN) Pneumococcal Vaccine: No (10/07/2016 14:46:Martha Laughlin RN) Tetanus Vaccine: Uncertain (10/07/2016 14:46:Martha Laughlin RN) Tdap Vaccine: Uncertain (10/07/2016 14:46:Martha Laughlin RN) Hepatitis B Vaccine: Yes (10/07/2016 14:46:Martha Laughlin RN) 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: [facility] (10/07/2016 14:46:Martha Laughlin RN) Feeding Preference: Breast (10/07/2016 14:46:Martha Laughlin RN) Benefit of Breast Feed Discussed: Yes (10/07/2016 14:46:Martha Laughlin RN) Circumcision: Yes (10/07/2016 14:46:Martha Laughlin RN) Classes Attended: No (10/07/2016 14:46:Martha Laughlin RN) Tubal Ligation: No (10/07/2016 14:46:Martha Laughlin RN) Tubal Authorization Signed: N/A (10/07/2016 14:46:Martha Laughlin RN) Consent: N/A (10/07/2016 14:46:Martha Laughlin RN) Consent Signed: N/A (10/07/2016 14:46:Martha Laughlin RN) Pain Management Plans: Epidural (10/07/2016 14:46:Martha Laughlin RN) Plans for Labor and Delivery: None (10/07/2016 14:46:Martha Laughlin RN) Support Person: (10/07/2016 14:46:Martha Laughlin RN) Support Person Relationship: (10/07/2016 14:46:Martha Laughlin RN) Cultural/Spritual Practice: No (10/07/2016 14:46:Martha Laughlin RN) Spir/Cult Dietary Needs: No (10/07/2016 14:46:Martha Laughlin RN) LIVING SITUATION/DISCHARGE PLAN Living Arrangements: House (10/07/2016 14:46:Martha Laughlin RN) Adequate Access to:: Electric; Heat; Refrigeration; Plumbing/Running water; Phone; Transportation (10/07/2016 14:46:Martha Laughlin RN) 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 Service 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 Person: (10/07/2016 14:46:Martha Laughlin RN) Person to Help after Discharge: Sir (10/07/2016 14:46:Martha Laughlin RN) Currently Using Commun Resources: Yes (10/07/2016 14:46:Martha Laughlin RN) Specify Current Resource Used: medicaid (10/07/2016 14:46:Martha Laughlin RN) Outside Agency/Sheet Manufacturing Supervisor: No (10/07/2016 14:46:Martha Laughlin RN) Car Seat for Discharge: Yes (10/07/2016 14:46:Martha Laughlin RN) Adoption Requested: No (10/07/2016 14:46:Martha Laughlin RN) Pt Contact w/infant Post : N/A (10/07/2016 14:46:Martha Laughlin RN) LABS Blood Type: O Positive (10/07/2016 14:46:Nilam Cary RN) Antibody Screen: negative (10/07/2016 14:46:Nilam Cary RN) Hemoglobin: 8.4 L (10/25/2016 06:59:QS system process) Hematocrit: 25.6 L (10/25/2016 06:59:QS system process) MCV: 79 L (10/25/2016 06:59:QS system process) Group Beta Strep: unknown (10/07/2016 14:46:Martha Laughlin RN) Gonorrhea: Negative (10/07/2016 14:46:Nilam Cary RN) Chlamydia: Negative (10/07/2016 14:46:Nilam Cary RN) RPR/VDRL: Nonreactive (10/07/2016 14:46:Nilam Cary RN) HIV Results: nonreactive (10/07/2016 14:46:Nilam Cary RN) Rubella: Non-Immune (10/07/2016 14:46:Nilam Cary RN) Varicella: Susceptible (10/07/2016 14:46:Nilam Cary RN) OB/PREVIOUS HISTORY Previous Procedures: Ultrasound; NST (10/07/2016 14:46:Martha Laughlin RN) Current Procedures: Ultrasound; NST (10/07/2016 14:46:Martha Laughlin RN) History of Previous : No (10/07/2016 14:46:Martha Laughlin RN) History of Gestational Diabetes: No (10/07/2016 14:46:Martha Laughlin RN) History of PIH: No (10/07/2016 14:46:Martha Laughlin RN) History of Incompetent Cervix: No (10/07/2016 14:46:Martha Laughlin RN) History of Placenta Previa/Abrup: No (10/07/2016 14:46:Martha Laughlin RN) History of Macrosomia: No (10/07/2016 14:46:Martha Laughlin RN) History of IUGR: No (10/07/2016 14:46:Martha Laughlin RN) History of Hemorrhage: No (10/07/2016 14:46:Martha Laughlin RN) History of Loss/Stillborn: No (10/07/2016 14:46:Martha Laughlin RN) History of : No (10/07/2016 14:46:Martha Laughlin RN) History of D (Rh) Sensitization: No (10/07/2016 14:46:Martha Laughlin RN) History Recurrent Loss/Stillborn: No (10/07/2016 14:46:Martha Laughlin RN) History Depression/PP Depression: No (10/07/2016 14:46:Martha Laughlin RN) History of Uterine Anomaly/KIRA: No (10/07/2016 14:46:Martha Laughlin RN) History of Infertility: No (10/07/2016 14:46:Martha Laughlin RN) History of ART Treatment: No (10/07/2016 14:46:Martha Laughlin RN) History of KIRA: No (10/07/2016 14:46:Martha Laughlin RN) Comments Obstetrical History: g1-Jul 2015, female, , precipitous delivery @ 37 weeks, one hour in labor, received iron transfusions g2- current , mono/di twins, PROM/PTL @ 35+4 weeks gestation (10/07/2016 14:46:Martha Laughlin RN) MEDICAL HISTORY Med Hx Diabetes: No (10/07/2016 14:46:Martha Laughlin RN) Med Hx Hypertension: No (10/07/2016 14:46:Martha Laughlin RN) Med Hx Heart Disease: No (10/07/2016 14:46:Martha Laughlin RN) Med Hx Autoimmune Disorder: No (10/07/2016 14:46:Martha Laughlin RN) Med Hx Kidney Disease/UTI: No (10/07/2016 14:46:Martha Laughlin RN) Med Hx Neurologic/Epilepsy: No (10/07/2016 14:46:Martha Laughlin RN) Med Hx Psychiatric Disorders: No (10/07/2016 14:46:Martha Laughlin RN) Med Hx Hepatitis/Liver Disease: No (10/07/2016 14:46:Martha Laughlin RN) Med Hx Varicosities/Phlebitis: No (10/07/2016 14:46:Martha Laughlin RN) Med Hx Thyroid Dysfunction: No (10/07/2016 14:46:Martha Laughlin RN) Med Hx Trauma/Violence: No (10/07/2016 14:46:Martha Laughlin RN) Med Hx Blood Transfusion: No (10/07/2016 14:46:Martha Laughlin RN) Med Hx Pulmonary (Asthma,TB): No (10/07/2016 14:46:Martha Laughlin RN) Med Hx Breast: No (10/07/2016 14:46:Martha Laughlin RN) Med Hx PMO LEAD Surgery: No (10/07/2016 14:46:Martha Laughlin RN) Med Hx Hospitalization/Surgery: Yes (10/07/2016 14:46:Martha Laughlin RN) Med Hx Anesthetic Complications: No (10/07/2016 14:46:Martha Laughlin RN) Med Hx Abnormal Pap Smear: No (10/07/2016 14:46:Martha Laughlin RN) Other Medical Diseases: Yes (10/07/2016 14:46:Martha Laughlin RN) Med Hx Significant Family Hx: No (10/07/2016 14:46:Martha Laughlin RN) Details of Med/Surg Hx: anemia received iron transfusion post delivery, x 1, with twins, (10/07/2016 14:46:Martha Laughlin RN) INFECTIOUS HISTORY Inf Hx Gonorrhea: No (10/07/2016 14:46:Martha Laughlin RN) Inf Hx Chlamydia: No (10/07/2016 14:46:Martha Laughlin RN) Inf Hx Syphilis: No (10/07/2016 14:46:Martha Laughlin RN) Inf Hx HIV/AIDS: No (10/07/2016 14:46:Martha Laughlin RN) Inf Hx Human Papilloma Virus: No (10/07/2016 14:46:Martha Laughlin RN) Inf Hx Pt/Partner Genital Herpes: No (10/07/2016 14:46:Martha Laughlin RN) Inf Hx Tuberculosis/Exposure: No (10/07/2016 14:46:Martha Laughlin RN) Inf Hx Hepatitis B,C: No (10/07/2016 14:46:Martha Laughlin RN) Inf Hx Rash or Viral Illness: No (10/07/2016 14:46:Martha Laughlin RN) GENETIC HISTORY Gen Hx Age >=35 at AUDREY: No (10/07/2016 14:46:Martha Laughlin RN) Gen Hx Thalassemia: No (10/07/2016 14:46:Martha Laughlin RN) Gen Hx Congenital Heart Defect: No (10/07/2016 14:46:Martha Laughlin RN) Gen Hx Neural Tube Defect: No (10/07/2016 14:46:Martha Laughlin RN) Gen Hx Down's Syndrome: No (10/07/2016 14:46:Martha Laughlin RN) Gen Hx James-Sachs: No (10/07/2016 14:46:Martha Laughlin RN) Gen Hx Richard: No (10/07/2016 14:46:Martha Laughlin RN) Gen Hx Familial Dysautonomia: No (10/07/2016 14:46:Martha Laughlin RN) Gen Hx Sickle Cell Disease/Trait: No (10/07/2016 14:46:Martha Laughlin RN) Gen Hx Hemophilia/Blood Disorder: No (10/07/2016 14:46:Martha Laughlin RN) Gen Hx Muscular Dystrophy: No (10/07/2016 14:46:Martha Laughlin RN) Gen Hx Cystic Fibrosis: No (10/07/2016 14:46:Martha Laughlin RN) Gen Hx Huntingtons Chorea: No (10/07/2016 14:46:Martha Laughlin RN) Gen Hx Mental Retardation/Autism: No (10/07/2016 14:46:Martha Laughlin RN) Gen Hx Tested for Fragile X: No (10/07/2016 14:46:Martha Laughlin RN) Gen Hx Other Inher/Chromosomal: No (10/07/2016 14:46:Martha Laughlin RN) Gen Hx Maternal Metabolic DO: No (10/07/2016 14:46:Martha Laughlin RN) Gen Hx Pt Father or FOB Defect: No (10/07/2016 14:46:Martha Laughlin RN) Gen Hx Other Genetic History: No (10/07/2016 14:46:Martha Laughlin RN) Gen Hx Drugs/Meds since LMP: Yes (10/07/2016 14:46:Martha Laughlin RN) Gen Hx Medications: tylenol, vitamins, iron (10/07/2016 14:46:Martha Laughlin RN)
--- NOTE | 2016-10-28 06:21 | L&D Current Admission ---
Current Admit Datetime Report Generated by CPN: 10/28/2016 06:00 ADMISSION INFORMATION Current Admit Date/Time: 10/24/2016 00:54 (10/24/2016 00:54:Martha Laughlin RN) Reason for Admission: Rupture of Membranes (10/24/2016 00:54:Martha Laughlin RN) Other Reason for Admission: [place]/Di twins vertex/vertex SROM @ 2330 (10/24/2016 00:54:Martha Laughlin RN) Chief Complaint: Suspected Rupture of Membranes (10/24/2016 00:54:Martha Laughlin RN) Medications During : Ferrous Sulfate (Iron); Vitamin; Acetaminophen (Tylenol) (10/24/2016 00:54:Martha Laughlin RN) EGA per Dates: 35.4 (10/24/2016 00:54:QS system process) Method of Arrival: Wheelchair (10/24/2016 00:54:Martha Laughlin RN) Admitted From: Home (10/24/2016 00:54:Martha Laughlin RN) Reason for Induction: Not Applicable (10/24/2016 00:54:Martha Laughlin RN) Records Available: Yes (10/24/2016 00:54:Martha Laughlin RN) General Admission Information: Reviewed (10/24/2016 00:54:Martha Laughlin RN) General Admission Reviewed By: CAMRON Laughlin (10/24/2016 00:54:Martha Laughlin RN) BELONGINGS/ADVANCED DIRECTIVES Other Belongings: see valuable consents (10/24/2016 00:54:Martha Laughlin RN) Disposition of Belongings: Kept with Patient (10/24/2016 00:54:Martha Laughlin RN) Advance Direct for Healthcare: No, and Wants No Information (10/24/2016 00:54:Martha Laughlin RN) Durable Power of Industrial Registered Nurse: No (10/24/2016 00:54:Martha Laughlin RN) Living Will: No (10/24/2016 00:54:Martha Laughlin RN) Organ Donor: Yes (10/24/2016 00:54:Martha Laughlin RN) Pt Rights Information Given: Yes (10/24/2016 00:54:Martha Laughlin RN) Pt Understands Pt Rights: Yes (10/24/2016 00:54:Martha Laughlin RN) Patient Rights Comments: Given in patient access (10/24/2016 00:54:Martha Laughlin RN) LEARNING ASSESSMENT Knowledge Level: Understands L_D Process; Understands Care Activities; Had Pre-Hospital Education; Understands Diagnosis (10/24/2016 00:54:Martha Laughlin RN) Barriers to Learning: Pain (10/24/2016 00:54:Martha Laughlin RN) Learning Readiness: Motivated (10/24/2016 00:54:Martha Laughlin RN) Learns Best By: 1 to 1 Instruction; Reading; Videos; Group Discussion; Demonstration (10/24/2016 00:54:Martha Laughlin RN) Learning Needs: Labor and Delivery Process; Pain Management; Symptoms to Report; Treatment Plan; Medication; Diagnosis; Nutrition; Equipment; Care; Community Resources (10/24/2016 00:54:Martha Laughlin RN) DOMESTIC VIOLANCE SCREENING Dom Viol Threatened/Hurt: No (10/24/2016 00:54:Martha Laughlin RN) Hx of Abuse/Neglect past 2yrs: No (10/24/2016 00:54:Martha Laughlin RN) Feel Unsafe Going Home: No (10/24/2016 00:54:Martha Laughlin RN) Addt'l Observ Indicating Abuse: No (10/24/2016 00:54:Martha Laughlin RN) Reason Unable to Complete Screen: No Opportunity to Talk Privately (10/24/2016 00:54:Martha Laughlin RN) Considered Personal Harm/Suicide: No (10/24/2016 00:54:Martha Laughlin RN) NUTRITIONAL/FUNCTIONAL SCREENING Problem with Appetite >5 Days: No (10/24/2016 00:54:Martha Laughlin RN) Chew/Swallow Difficulties: No (10/24/2016 00:54:Martha Laughlin RN) Inappropriate Wt Gain/Loss: No (10/24/2016 00:54:Martha Laughlin RN) Presence Skin Breakdown/Ulcer: No (10/24/2016 00:54:Martha Laughlin RN) Special Diet: No (10/24/2016 00:54:Martha Laughlin RN) Pt Requests Minor League Baseball Player Visit: No (10/24/2016 00:54:Martha Laughlin RN) Hx of Any of the Following?: N/A (10/24/2016 00:54:Martha Laughlin RN) New Diagnosis of: N/A (10/24/2016 00:54:Martha Laughlin RN) Requires Assist w/Ambulation: No (10/24/2016 00:54:Martha Lauglhin RN) Uses Assist Device to Ambulate: No (10/24/2016 00:54:Martha Laughlin RN) Pt Requires Help w/ADL's: No (10/24/2016 00:54:Martha Laughlin RN)
--- NOTE | 2016-10-29 06:22 | L&D Current Admission ---
Current Admit Datetime Report Generated by CPN: 10/29/2016 06:00 ADMISSION INFORMATION Current Admit Date/Time: 10/24/2016 00:54 (10/24/2016 00:54:Martha Laughlin RN) Reason for Admission: Rupture of Membranes (10/24/2016 00:54:Martha Laughlin RN) Other Reason for Admission: [place]/Di twins vertex/vertex SROM @ 2330 (10/24/2016 00:54:Martha Laughlin RN) Chief Complaint: Suspected Rupture of Membranes (10/24/2016 00:54:Martha Laughlin RN) Medications During : Ferrous Sulfate (Iron); Vitamin; Acetaminophen (Tylenol) (10/24/2016 00:54:Martha Laughlin RN) EGA per Dates: 35.4 (10/24/2016 00:54:QS system process) Method of Arrival: Wheelchair (10/24/2016 00:54:Martha Laughlin RN) Admitted From: Home (10/24/2016 00:54:Martha Laughlin RN) Reason for Induction: Not Applicable (10/24/2016 00:54:Martha Laughlin RN) Records Available: Yes (10/24/2016 00:54:Martha Laughlin RN) General Admission Information: Reviewed (10/24/2016 00:54:Martha Laughlin RN) General Admission Reviewed By: CAMRON Laughlin (10/24/2016 00:54:Martha Laughlin RN) BELONGINGS/ADVANCED DIRECTIVES Other Belongings: see valuable consents (10/24/2016 00:54:Martha Laughlin RN) Disposition of Belongings: Kept with Patient (10/24/2016 00:54:Martha Laughlin RN) Advance Direct for Healthcare: No, and Wants No Information (10/24/2016 00:54:Martha Laughlin RN) Durable Power of Disability Hearing Officer: No (10/24/2016 00:54:Martha Laughlin RN) Living Will: No (10/24/2016 00:54:Martha Laughlin RN) Organ Donor: Yes (10/24/2016 00:54:Martha Laughlin RN) Pt Rights Information Given: Yes (10/24/2016 00:54:Martha Laughlin RN) Pt Understands Pt Rights: Yes (10/24/2016 00:54:Martha Laughlin RN) Patient Rights Comments: Given in patient access (10/24/2016 00:54:Martha Laughlin RN) LEARNING ASSESSMENT Knowledge Level: Understands L_D Process; Understands Care Activities; Had Pre-Hospital Education; Understands Diagnosis (10/24/2016 00:54:Martha Laughlin RN) Barriers to Learning: Pain (10/24/2016 00:54:Martha Laughlin RN) Learning Readiness: Motivated (10/24/2016 00:54:Martha Laughlin RN) Learns Best By: 1 to 1 Instruction; Reading; Videos; Group Discussion; Demonstration (10/24/2016 00:54:Martha Laughlin RN) Learning Needs: Labor and Delivery Process; Pain Management; Symptoms to Report; Treatment Plan; Medication; Diagnosis; Nutrition; Equipment; Care; Community Resources (10/24/2016 00:54:Martha Laughlin RN) DOMESTIC VIOLANCE SCREENING Dom Viol Threatened/Hurt: No (10/24/2016 00:54:Martha Laughlin RN) Hx of Abuse/Neglect past 2yrs: No (10/24/2016 00:54:Martha Lauhglin RN) Feel Unsafe Going Home: No (10/24/2016 00:54:Martha Laughlin RN) Addt'l Observ Indicating Abuse: No (10/24/2016 00:54:Martha Laughlin RN) Reason Unable to Complete Screen: No Opportunity to Talk Privately (10/24/2016 00:54:Martha Laughlin RN) Considered Personal Harm/Suicide: No (10/24/2016 00:54:Martha Laughlin RN) NUTRITIONAL/FUNCTIONAL SCREENING Problem with Appetite >5 Days: No (10/24/2016 00:54:Martha Laughlin RN) Chew/Swallow Difficulties: No (10/24/2016 00:54:Martha Laughlin RN) Inappropriate Wt Gain/Loss: No (10/24/2016 00:54:Martha Laughlin RN) Presence Skin Breakdown/Ulcer: No (10/24/2016 00:54:Martha Laughlin RN) Special Diet: No (10/24/2016 00:54:Martha Laughlin RN) Pt Requests Sole Ruffer Visit: No (10/24/2016 00:54:Martha Laughlin RN) Hx of Any of the Following?: N/A (10/24/2016 00:54:Martha Laughlin RN) New Diagnosis of: N/A (10/24/2016 00:54:Martha Laughlin RN) Requires Assist w/Ambulation: No (10/24/2016 00:54:Martha Laughlin RN) Uses Assist Device to Ambulate: No (10/24/2016 00:54:Martha Laughlin RN) Pt Requires Help w/ADL's: No (10/24/2016 00:54:Martha Laughlin RN)
--- NOTE | 2016-10-29 06:22 | L&D General Admission ---
General Admit Datetime Report Generated by CPN: 10/29/2016 06:00 INFORMATION Patient Age: 20 (10/07/2016 14:36:QS system process) EDC: 11/24/2016 00:00 (10/07/2016 14:46:Nilam Cary RN) : 2 (10/07/2016 14:46:Melisa De Leon RN) Para: 1 (10/20/2016 15:52:NAITA Granda) Term: 1 (10/07/2016 14:46:ANITA Granda) : 0 (10/07/2016 14:46:ANITA Granda) Spontaneous Abortions: 0 (10/07/2016 14:46:ANITA Granda) Induced Abortions: 0 (10/07/2016 14:46:ANITA Granda) Livin (10/07/2016 14:46:ANITA Granda) Cesareans: 0 (10/07/2016 14:46:ANITA Granda) VBACs: 0 (10/07/2016 14:46:Yenifer Dawkins [facility]) Ectopic: 0 (10/07/2016 [facility] Baby, Number in Womb: 2 (10/20/2016 15:52:Yenifer Dawkins [facility]) CARE Primary Alteration Specialist: [facility] (10/07/2016 14:46:Yenifer Dawkins [facility]) Alteration Specialist Other: Health Department (10/07/2016 14:46:Martha Laughlin RN) Adequate Care: No (10/07/2016 14:46:Martha Laughlin RN) Prepregnancy Weight (lb): 130 (10/07/2016 14:46:Martha Laughlin RN) Prepregnancy Weight (kg): 59.1 (10/07/2016 14:46:QS system process) Height (in): 68 (10/26/2016 11:40:QS system process) ALLERGIES Medication Allergy: No (10/07/2016 14:46:Martha Laughlin RN) Medication Allergies: No Known Allergies (10/24/2016) (10/24/2016 03:41:QS system process) Latex Allergy: No Latex Allergies (10/07/2016 14:46:Martha Laughlin RN) Food Allergies: denies (10/07/2016 14:46:Martha Laughlin RN) Environmental Allergies: denies (10/07/2016 14:46:Martha Laughlin RN) COMMUNICATION Primary Language: Burkinan (10/07/2016 14:46:Martha Laughlin RN) Medical Tx Preferred Language: Burkinan (10/07/2016 14:46:Martha Laughlin RN) Burkinan Communication Ability: Speaks Burkinan; Reads Burkinan (10/07/2016 14:46:Martha Laughlin RN) Communication Barrier(s): None (10/07/2016 14:46:Martha Laughlin RN) DEMOGRAPHICS Address: [address] [place] [id number] (10/07/2016 14:36:QS system process) Zipcode: [phone] (10/07/2016 14:36:QS system process) Home (10/07/2016 14:36:QS system process) N: [phone] (10/07/2016 14:36:QS system process) Next of Kin Name: TIRSO MEJIA (10/07/2016 14:36:QS system process) Next of Kin (10/07/2016 14:36:QS system process) Next of Kin Relationship: MO (10/07/2016 14:36:QS system process) Date of : 1995 (10/07/2016 14:36:QS system process) Marital Status: Single (10/07/2016 14:36:QS system process) Sex: Female (10/07/2016 14:36:QS system process) Race: (10/07/2016 14:36:QS system process) Ethnicity: Non- or (10/07/2016 14:36:QS system process) Zoroastrian: None (10/07/2016 14:36:QS system process) DRUG AND ALCOHOL USE Alcohol: No (10/07/2016 14:46:Martha Laughlin RN) Cigarettes: Former Smoker. [id number] (10/07/2016 14:46:Martha Laughlin RN) Marijuana: No (10/07/2016 14:46:Martha Laughlin RN) Cocaine: No (10/07/2016 14:46:Martha Laughlin RN) Other Illicit Drugs: No (10/07/2016 14:46:Martha Laughlin RN) VACCINE HISTORY Influenza Vaccine: Yes (10/07/2016 14:46:Martha Laughlin RN) Influenza Date: 2015 (10/07/2016 14:46:Martha Laughlin RN) Pneumococcal Vaccine: No (10/07/2016 14:46:Martha Laughlin RN) Tetanus Vaccine: Uncertain (10/07/2016 14:46:Martha Laughlin RN) Tdap Vaccine: Uncertain (10/07/2016 14:46:Martha Laughlin RN) Hepatitis B Vaccine: Yes (10/07/2016 14:46:Martha Laughlin RN) Inbound Call Center Agent: [facility] (10/07/2016 14:46:Martha Laughlin RN) Feeding Preference: Breast (10/07/2016 14:46:Martha Laughlin RN) Benefit of Breast Feed Discussed: Yes (10/07/2016 14:46:Martha Laughlin RN) Circumcision: Yes (10/07/2016 14:46:Martha Laughlin RN) Classes Attended: No (10/07/2016 14:46:Martha Laughlin RN) Tubal Ligation: No (10/07/2016 14:46:Martha Laughlin RN) Tubal Authorization Signed: N/A (10/07/2016 14:46:Martha Laughlin RN) Consent: N/A (10/07/2016 14:46:Martha Laughlin RN) Consent Signed: N/A (10/07/2016 14:46:Martha Laughlin RN) Pain Management Plans: Epidural (10/07/2016 14:46:Martha Laughlin RN) Plans for Labor and Delivery: None (10/07/2016 14:46:Martha Laughlin RN) Support Person: (10/07/2016 14:46:Martha Laughlin RN) Support Person Relationship: (10/07/2016 14:46:Martha Laughlin RN) Cultural/Spritual Practice: No (10/07/2016 14:46:Martha Laughlin RN) Spir/Cult Dietary Needs: No (10/07/2016 14:46:Martha Laughlin RN) LIVING SITUATION/DISCHARGE PLAN Living Arrangements: House (10/07/2016 14:46:Martha Laughlin RN) Adequate Access to:: Electric; Heat; Refrigeration; Plumbing/Running water; Phone; Transportation (10/07/2016 14:46:Martha Laughlin RN) Discharge Head Bucker Person: (10/07/2016 14:46:Martha Laughlin RN) Person to Help after Discharge: Sir (10/07/2016 14:46:Martha Laughlin RN) Currently Using Commun Resources: Yes (10/07/2016 14:46:Martha Laughlin RN) Specify Current Resource Used: medicaid (10/07/2016 14:46:Martha Laughlin RN) Outside Agency/Electronic Page Makeup System Operator: No (10/07/2016 14:46:Martha Laughlin RN) Car Seat for Discharge: Yes (10/07/2016 14:46:Martha Laughlin RN) Adoption Requested: No (10/07/2016 14:46:Martha Laughlin RN) Pt Contact w/infant Post : N/A (10/07/2016 14:46:Martha Laughlin RN) LABS Blood Type: O Positive (10/07/2016 14:46:Nilam Cary RN) Antibody Screen: negative (10/07/2016 14:46:Nilam Cary RN) Hemoglobin: 8.4 L (10/25/2016 06:59:QS system process) Hematocrit: 25.6 L (10/25/2016 06:59:QS system process) MCV: 79 L (10/25/2016 06:59:QS system process) Group Beta Strep: unknown (10/07/2016 14:46:Martha Laughlin RN) Gonorrhea: Negative (10/07/2016 14:46:Nilam Cary RN) Chlamydia: Negative (10/07/2016 14:46:Nilam Cary RN) RPR/VDRL: Nonreactive (10/07/2016 14:46:Nilam Cary RN) HIV Results: nonreactive (10/07/2016 14:46:Nilam Cary RN) Rubella: Non-Immune (10/07/2016 14:46:Nilam Cary RN) Varicella: Susceptible (10/07/2016 14:46:Nilam Cary RN) OB/PREVIOUS HISTORY Previous Procedures: Ultrasound; NST (10/07/2016 14:46:Martha Laughlin RN) Current Procedures: Ultrasound; NST (10/07/2016 14:46:Martha Laughlin RN) History of Previous : No (10/07/2016 14:46:Martha Laughlin RN) History of Gestational Diabetes: No (10/07/2016 14:46:Martha Laughlin RN) History of PIH: No (10/07/2016 14:46:Martha Laughlin RN) History of Incompetent Cervix: No (10/07/2016 14:46:Martha Laughlin RN) History of Placenta Previa/Abrup: No (10/07/2016 14:46:Martha Laughlin RN) History of Macrosomia: No (10/07/2016 14:46:Martha Laughlin RN) History of IUGR: No (10/07/2016 14:46:Martha Laughlin RN) History of Hemorrhage: No (10/07/2016 14:46:Martha Laughlin RN) History of Loss/Stillborn: No (10/07/2016 14:46:Martha Laughlin RN) History of : No (10/07/2016 14:46:Martha Laughlin RN) History of D (Rh) Sensitization: No (10/07/2016 14:46:Martha Laughlin RN) History Recurrent Loss/Stillborn: No (10/07/2016 14:46:Martha Laughlin RN) History Depression/PP Depression: No (10/07/2016 14:46:Martha Laughlin RN) History of Uterine Anomaly/KIRA: No (10/07/2016 14:46:Martha Laughlin RN) History of Infertility: No (10/07/2016 14:46:Martha Laughlin RN) History of ART Treatment: No (10/07/2016 14:46:Martha Laughlin RN) History of KIRA: No (10/07/2016 14:46:Martha Laughlin RN) Comments Obstetrical History: g1-Jul 2015, female, , precipitous delivery @ 37 weeks, one hour in labor, received iron transfusions g2- current , mono/di twins, PROM/PTL @ 35+4 weeks gestation (10/07/2016 14:46:Martha Laughlin RN) MEDICAL HISTORY Med Hx Diabetes: No (10/07/2016 14:46:Martha Laughlin RN) Med Hx Hypertension: No (10/07/2016 14:46:Martha Laughlin RN) Med Hx Heart Disease: No (10/07/2016 14:46:Martha Laughlin RN) Med Hx Autoimmune Disorder: No (10/07/2016 14:46:Martha Laughlin RN) Med Hx Kidney Disease/UTI: No (10/07/2016 14:46:Martha Laughlin RN) Med Hx Neurologic/Epilepsy: No (10/07/2016 14:46:Martha Laughlin RN) Med Hx Psychiatric Disorders: No (10/07/2016 14:46:Martha Laughlin RN) Med Hx Hepatitis/Liver Disease: No (10/07/2016 14:46:Martha Laughlin RN) Med Hx Varicosities/Phlebitis: No (10/07/2016 14:46:Martha Laughlin RN) Med Hx Thyroid Dysfunction: No (10/07/2016 14:46:Martha Laughlin RN) Med Hx Trauma/Violence: No (10/07/2016 14:46:Martha Laughlin RN) Med Hx Blood Transfusion: No (10/07/2016 14:46:Martha Laughlin RN) Med Hx Pulmonary (Asthma,TB): No (10/07/2016 14:46:Martha Laughlin RN) Med Hx Breast: No (10/07/2016 14:46:Martha Laughlin RN) Med Hx DYSLEXIA TEACHER Surgery: No (10/07/2016 14:46:Martha Laughlin RN) Med Hx Hospitalization/Surgery: Yes (10/07/2016 14:46:Martha Laughlin RN) Med Hx Anesthetic Complications: No (10/07/2016 14:46:Martha Laughlin RN) Med Hx Abnormal Pap Smear: No (10/07/2016 14:46:Martha Laughlin RN) Other Medical Diseases: Yes (10/07/2016 14:46:Martha Laughlin RN) Med Hx Significant Family Hx: No (10/07/2016 14:46:Martha Laughlin RN) Details of Med/Surg Hx: anemia received iron transfusion post delivery, x 1, with twins, (10/07/2016 14:46:Martha Laughlin RN) INFECTIOUS HISTORY Inf Hx Gonorrhea: No (10/07/2016 14:46:Martha Laughlin RN) Inf Hx Chlamydia: No (10/07/2016 14:46:Martha Laughlin RN) Inf Hx Syphilis: No (10/07/2016 14:46:Martha Laughlin RN) Inf Hx HIV/AIDS: No (10/07/2016 14:46:Martha Laughlin RN) Inf Hx Human Papilloma Virus: No (10/07/2016 14:46:Martha Laughlin RN) Inf Hx Pt/Partner Genital Herpes: No (10/07/2016 14:46:Martha Laughlin RN) Inf Hx Tuberculosis/Exposure: No (10/07/2016 14:46:Martha Laughlin RN) Inf Hx Hepatitis B,C: No (10/07/2016 14:46:Martha Laughlin RN) Inf Hx Rash or Viral Illness: No (10/07/2016 14:46:Martha Laughlin RN) GENETIC HISTORY Gen Hx Age >=35 at AUDREY: No (10/07/2016 14:46:Martha Laughlin RN) Gen Hx Thalassemia: No (10/07/2016 14:46:Martha Laughlin RN) Gen Hx Congenital Heart Defect: No (10/07/2016 14:46:Martha Laughlin RN) Gen Hx Neural Tube Defect: No (10/07/2016 14:46:Martha Laughlin RN) Gen Hx Down's Syndrome: No (10/07/2016 14:46:Martha Laughlin RN) Gen Hx James-Sachs: No (10/07/2016 14:46:Martha Laughlin RN) Gen Hx Richard: No (10/07/2016 14:46:Martha Laughlin RN) Gen Hx Familial Dysautonomia: No (10/07/2016 14:46:Martha Laughlin RN) Gen Hx Sickle Cell Disease/Trait: No (10/07/2016 14:46:Martha Laughlin RN) Gen Hx Hemophilia/Blood Disorder: No (10/07/2016 14:46:Martha Laughlin RN) Gen Hx Muscular Dystrophy: No (10/07/2016 14:46:Martha Laughlin RN) Gen Hx Cystic Fibrosis: No (10/07/2016 14:46:Martha Laughlin RN) Gen Hx Huntingtons Chorea: No (10/07/2016 14:46:Martha Laughlin RN) Gen Hx Mental Retardation/Autism: No (10/07/2016 14:46:Martha Laughlin RN) Gen Hx Tested for Fragile X: No (10/07/2016 14:46:Martha Laughlin RN) Gen Hx Other Inher/Chromosomal: No (10/07/2016 14:46:Martha Laughlin RN) Gen Hx Maternal Metabolic DO: No (10/07/2016 14:46:Martha Laughlin RN) Gen Hx Pt Father or FOB Defect: No (10/07/2016 14:46:Martha Laughlin RN) Gen Hx Other Genetic History: No (10/07/2016 14:46:Martha Laughlin RN) Gen Hx Drugs/Meds since LMP: Yes (10/07/2016 14:46:Martha Laughlin RN) Gen Hx Medications: tylenol, vitamins, iron (10/07/2016 14:46:Martha Laughlin RN)
--- NOTE | 2016-10-30 06:22 | L&D General Admission ---
General Admit Datetime Report Generated by CPN: 10/30/2016 06:00 INFORMATION Patient Age: 20 (10/07/2016 14:36:QS system process) EDC: 11/24/2016 00:00 (10/07/2016 14:46:Nilam Cary RN) : 2 (10/07/2016 14:46:Melisa De Leon RN) Para: 1 (10/20/2016 15:52:ANITA Granda) Term: 1 (10/07/2016 14:46:ANITA Granda) : 0 (10/07/2016 14:46:ANITA Granda) Spontaneous Abortions: 0 (10/07/2016 14:46:ANITA Granda) Induced Abortions: 0 (10/07/2016 14:46:ANITA Granda) Livin (10/07/2016 14:46:ANITA Granda) Cesareans: 0 (10/07/2016 14:46:ANITA Granda) VBACs: 0 (10/07/2016 14:46:Yenifer Dawkins [facility]) Ectopic: 0 (10/07/2016 14:[facility] Baby, Number in Womb: 2 (10/20/2016 15:52:Yenifer Dawkins [facility]) CARE Primary Jowl Trimmer: [facility] (10/07/2016 14:46:Yenifer Dawkins [facility]) Jowl Trimmer Other: Health Department (10/07/2016 14:46:Martha Laughlin RN) Adequate Care: No (10/07/2016 14:46:Martha Laughlin RN) Prepregnancy Weight (lb): 130 (10/07/2016 14:46:Martha Laughlin RN) Prepregnancy Weight (kg): 59.1 (10/07/2016 14:46:QS system process) Height (in): 68 (10/26/2016 11:40:QS system process) ALLERGIES Medication Allergy: No (10/07/2016 14:46:Martha Laughlin RN) Medication Allergies: No Known Allergies (10/24/2016) (10/24/2016 03:41:QS system process) Latex Allergy: No Latex Allergies (10/07/2016 14:46:Martha Laughlin RN) Food Allergies: denies (10/07/2016 14:46:Martha Laughlin RN) Environmental Allergies: denies (10/07/2016 14:46:Martha Laughlin RN) COMMUNICATION Primary Language: East Timorese (10/07/2016 14:46:Martha Laughlin RN) Medical Tx Preferred Language: [place]orese (10/07/2016 14:46:Martha Laughlin RN) [place]se Communication Ability: Speaks [place]orese; Reads [place]orese (10/07/2016 14:46:Martha Laughlin RN) Communication Barrier(s): None (10/07/2016 14:46:Martha Laughlin RN) DEMOGRAPHICS Address: [address] [place] [id number] (10/07/2016 14:36:QS system process) Zipcode: [address] (10/07/2016 14:36:QS system process) Home (10/07/2016 14:36:QS system process) N: [phone] (10/07/2016 14:36:QS system process) Next of Kin Name: TIRSO MEJIA (10/07/2016 14:36:QS system process) Next of Kin (10/07/2016 14:36:QS system process) Next of Kin Relationship: MO (10/07/2016 14:36:QS system process) Date of : 1995 (10/07/2016 14:36:QS system process) Marital Status: Single (10/07/2016 14:36:QS system process) Sex: Female (10/07/2016 14:36:QS system process) Race: (10/07/2016 14:36:QS system process) Ethnicity: Non- or (10/07/2016 14:36:QS system process) Quaker: None (10/07/2016 14:36:QS system process) DRUG AND ALCOHOL USE Alcohol: No (10/07/2016 14:46:Martha Laughlin RN) Cigarettes: Former Smoker. [id number] (10/07/2016 14:46:Martha Laughlin RN) Marijuana: No (10/07/2016 14:46:Martha Laughlin RN) Cocaine: No (10/07/2016 14:46:Martha Laughlin RN) Other Illicit Drugs: No (10/07/2016 14:46:Martha Laughlin RN) VACCINE HISTORY Influenza Vaccine: Yes (10/07/2016 14:46:Martha Laughlin RN) Influenza Date: 2015 (10/07/2016 14:46:Martha Laughlin RN) Pneumococcal Vaccine: No (10/07/2016 14:46:Martha Laughlin RN) Tetanus Vaccine: Uncertain (10/07/2016 14:46:Martha Laughlin RN) Tdap Vaccine: Uncertain (10/07/2016 14:46:Martha Laughlin RN) Hepatitis B Vaccine: Yes (10/07/2016 14:46:Martha Laughlin RN) Gas Manager: [facility] (10/07/2016 14:46:Martha Laughlin RN) Feeding Preference: Breast (10/07/2016 14:46:Martha Laughlin RN) Benefit of Breast Feed Discussed: Yes (10/07/2016 14:46:Martha Laughlin RN) Circumcision: Yes (10/07/2016 14:46:Martha Laughlin RN) Classes Attended: No (10/07/2016 14:46:Martha Laughlin RN) Tubal Ligation: No (10/07/2016 14:46:Martha Laughlin RN) Tubal Authorization Signed: N/A (10/07/2016 14:46:Martha Laughlin RN) Consent: N/A (10/07/2016 14:46:Martha Laughlin RN) Consent Signed: N/A (10/07/2016 14:46:Martha Laughlin RN) Pain Management Plans: Epidural (10/07/2016 14:46:Martha Laughlin RN) Plans for Labor and Delivery: None (10/07/2016 14:46:Martha Laughlin RN) Support Person: (10/07/2016 14:46:Martha Laughlin RN) Support Person Relationship: (10/07/2016 14:46:Martha Laughlin RN) Cultural/Spritual Practice: No (10/07/2016 14:46:Martha Laughlin RN) Spir/Cult Dietary Needs: No (10/07/2016 14:46:Martha Laughlin RN) LIVING SITUATION/DISCHARGE PLAN Living Arrangements: House (10/07/2016 14:46:Martha Laughlin RN) Adequate Access to:: Electric; Heat; Refrigeration; Plumbing/Running water; Phone; Transportation (10/07/2016 14:46:Martha Laughlin RN) Discharge Jr. Systems Administrator Person: (10/07/2016 14:46:Martha Laughlin RN) Person to Help after Discharge: Sir (10/07/2016 14:46:Martha Laughlin RN) Currently Using Commun Resources: Yes (10/07/2016 14:46:Martha Laughlin RN) Specify Current Resource Used: medicaid (10/07/2016 14:46:Martha Laughlin RN) Outside Agency/Commercial Specialist: No (10/07/2016 14:46:Martha Laughlin RN) Car Seat for Discharge: Yes (10/07/2016 14:46:Martha Laughlin RN) Adoption Requested: No (10/07/2016 14:46:Martha Laughlin RN) Pt Contact w/infant Post : N/A (10/07/2016 14:46:Martha Laughlin RN) LABS Blood Type: O Positive (10/07/2016 14:46:Nilam Cary RN) Antibody Screen: negative (10/07/2016 14:46:Nilam Cary RN) Hemoglobin: 8.4 L (10/25/2016 06:59:QS system process) Hematocrit: 25.6 L (10/25/2016 06:59:QS system process) MCV: 79 L (10/25/2016 06:59:QS system process) Group Beta Strep: unknown (10/07/2016 14:46:Martha Laughlin RN) Gonorrhea: Negative (10/07/2016 14:46:Nilam Cary RN) Chlamydia: Negative (10/07/2016 14:46:Nilam Cary RN) RPR/VDRL: Nonreactive (10/07/2016 14:46:Nilam Cary RN) HIV Results: nonreactive (10/07/2016 14:46:Nilam Cary RN) Rubella: Non-Immune (10/07/2016 14:46:Nilam Cary RN) Varicella: Susceptible (10/07/2016 14:46:Nilam Cary RN) OB/PREVIOUS HISTORY Previous Procedures: Ultrasound; NST (10/07/2016 14:46:Martha Laughlin RN) Current Procedures: Ultrasound; NST (10/07/2016 14:46:Martha Laughlin RN) History of Previous : No (10/07/2016 14:46:Martha Laughlin RN) History of Gestational Diabetes: No (10/07/2016 14:46:Martha Laughlin RN) History of PIH: No (10/07/2016 14:46:Martha Laughlin RN) History of Incompetent Cervix: No (10/07/2016 14:46:Martha Laughlin RN) History of Placenta Previa/Abrup: No (10/07/2016 14:46:Martha Laughlin RN) History of Macrosomia: No (10/07/2016 14:46:Martha Laughlin RN) History of IUGR: No (10/07/2016 14:46:Martha Laughlin RN) History of Hemorrhage: No (10/07/2016 14:46:Mratha Laughlin RN) History of Loss/Stillborn: No (10/07/2016 14:46:Martha Laughlin RN) History of : No (10/07/2016 14:46:Martha Laughlin RN) History of D (Rh) Sensitization: No (10/07/2016 14:46:Martha Laughlin RN) History Recurrent Loss/Stillborn: No (10/07/2016 14:46:Martha Laughlin RN) History Depression/PP Depression: No (10/07/2016 14:46:Martha Laughlin RN) History of Uterine Anomaly/KIRA: No (10/07/2016 14:46:Martha Laughlin RN) History of Infertility: No (10/07/2016 14:46:Martha Laughlin RN) History of ART Treatment: No (10/07/2016 14:46:Martha Laughlin RN) History of KIRA: No (10/07/2016 14:46:Martha Laughlin RN) Comments Obstetrical History: g1-Jul 2015, female, , precipitous delivery @ 37 weeks, one hour in labor, received iron transfusions g2- current , mono/di twins, PROM/PTL @ 35+4 weeks gestation (10/07/2016 14:46:Martha Laughlin RN) MEDICAL HISTORY Med Hx Diabetes: No (10/07/2016 14:46:Martha Laughlin RN) Med Hx Hypertension: No (10/07/2016 14:46:Martha Laughlin RN) Med Hx Heart Disease: No (10/07/2016 14:46:Martha Laughlin RN) Med Hx Autoimmune Disorder: No (10/07/2016 14:46:Martha Laughlin RN) Med Hx Kidney Disease/UTI: No (10/07/2016 14:46:Martha Laughlin RN) Med Hx Neurologic/Epilepsy: No (10/07/2016 14:46:Martha Laughlin RN) Med Hx Psychiatric Disorders: No (10/07/2016 14:46:Martha Laughlin RN) Med Hx Hepatitis/Liver Disease: No (10/07/2016 14:46:Martha Laughlin RN) Med Hx Varicosities/Phlebitis: No (10/07/2016 14:46:Martha Laughlin RN) Med Hx Thyroid Dysfunction: No (10/07/2016 14:46:Martha Laughlin RN) Med Hx Trauma/Violence: No (10/07/2016 14:46:Martha Laughlin RN) Med Hx Blood Transfusion: No (10/07/2016 14:46:Martha Laughlin RN) Med Hx Pulmonary (Asthma,TB): No (10/07/2016 14:46:Martha Laughlin RN) Med Hx Breast: No (10/07/2016 14:46:Martha Laughlin RN) Med Hx CROTCH PIECE BASTER Surgery: No (10/07/2016 14:46:Martha Laughlin RN) Med Hx Hospitalization/Surgery: Yes (10/07/2016 14:46:Martha Laughlin RN) Med Hx Anesthetic Complications: No (10/07/2016 14:46:Martha Laughlin RN) Med Hx Abnormal Pap Smear: No (10/07/2016 14:46:Martha Laughlin RN) Other Medical Diseases: Yes (10/07/2016 14:46:Martha Laughlin RN) Med Hx Significant Family Hx: No (10/07/2016 14:46:Martha Laughlin RN) Details of Med/Surg Hx: anemia received iron transfusion post delivery, x 1, with twins, (10/07/2016 14:46:Martha Laughlin RN) INFECTIOUS HISTORY Inf Hx Gonorrhea: No (10/07/2016 14:46:Martha Laughlin RN) Inf Hx Chlamydia: No (10/07/2016 14:46:Martha Laughlin RN) Inf Hx Syphilis: No (10/07/2016 14:46:Martha Laughlin RN) Inf Hx HIV/AIDS: No (10/07/2016 14:46:Martha Laughlin RN) Inf Hx Human Papilloma Virus: No (10/07/2016 14:46:Martha Laughlin RN) Inf Hx Pt/Partner Genital Herpes: No (10/07/2016 14:46:Martha Laughlin RN) Inf Hx Tuberculosis/Exposure: No (10/07/2016 14:46:Martha Laughlin RN) Inf Hx Hepatitis B,C: No (10/07/2016 14:46:Martha Laughlin RN) Inf Hx Rash or Viral Illness: No (10/07/2016 14:46:Martha Laughlin RN) GENETIC HISTORY Gen Hx Age >=35 at AUDREY: No (10/07/2016 14:46:Martha Laughlin RN) Gen Hx Thalassemia: No (10/07/2016 14:46:Martha Laughlin RN) Gen Hx Congenital Heart Defect: No (10/07/2016 14:46:Martha Laughlin RN) Gen Hx Neural Tube Defect: No (10/07/2016 14:46:Martha Laughlin RN) Gen Hx Down's Syndrome: No (10/07/2016 14:46:Martha Laughlin RN) Gen Hx James-Sachs: No (10/07/2016 14:46:Martha Laughlin RN) Gen Hx Richard: No (10/07/2016 14:46:Martha Laughlin RN) Gen Hx Familial Dysautonomia: No (10/07/2016 14:46:Martha Laughlin RN) Gen Hx Sickle Cell Disease/Trait: No (10/07/2016 14:46:Martha Laughlin RN) Gen Hx Hemophilia/Blood Disorder: No (10/07/2016 14:46:Martha Laughlin RN) Gen Hx Muscular Dystrophy: No (10/07/2016 14:46:Martha Laughlin RN) Gen Hx Cystic Fibrosis: No (10/07/2016 14:46:Martha Laughlin RN) Gen Hx Huntingtons Chorea: No (10/07/2016 14:46:Martha Laughlin RN) Gen Hx Mental Retardation/Autism: No (10/07/2016 14:46:Martha Laughlin RN) Gen Hx Tested for Fragile X: No (10/07/2016 14:46:Martha Laughlin RN) Gen Hx Other Inher/Chromosomal: No (10/07/2016 14:46:Martha Laughlin RN) Gen Hx Maternal Metabolic DO: No (10/07/2016 14:46:Martha Laughlin RN) Gen Hx Pt Father or FOB Defect: No (10/07/2016 14:46:Martha Laughlin RN) Gen Hx Other Genetic History: No (10/07/2016 14:46:Martha Laughlin RN) Gen Hx Drugs/Meds since LMP: Yes (10/07/2016 14:46:Martha Laughlin RN) Gen Hx Medications: tylenol, vitamins, iron (10/07/2016 14:46:Martha Laughlin RN)
--- NOTE | 2016-10-30 06:22 | L&D Current Admission ---
Current Admit Datetime Report Generated by CPN: 10/30/2016 06:00 ADMISSION INFORMATION Current Admit Date/Time: 10/24/2016 00:54 (10/24/2016 00:54:Martha Laughlin RN) Reason for Admission: Rupture of Membranes (10/24/2016 00:54:Martha Laughlin RN) Other Reason for Admission: [place]/Di twins vertex/vertex SROM @ 2330 (10/24/2016 00:54:Matrha Laughlin RN) Chief Complaint: Suspected Rupture of Membranes (10/24/2016 00:54:Martha Laughlin RN) Medications During : Ferrous Sulfate (Iron); Vitamin; Acetaminophen (Tylenol) (10/24/2016 00:54:Martha Laughlin RN) EGA per Dates: 35.4 (10/24/2016 00:54:QS system process) Method of Arrival: Wheelchair (10/24/2016 00:54:Martha Laughlin RN) Admitted From: Home (10/24/2016 00:54:Martha Laughlin RN) Reason for Induction: Not Applicable (10/24/2016 00:54:Martha Laughlin RN) Records Available: Yes (10/24/2016 00:54:Martha Laughlin RN) General Admission Information: Reviewed (10/24/2016 00:54:Martha Laughlin RN) General Admission Reviewed By: CAMRON Laughlin (10/24/2016 00:54:Martha Laughlin RN) BELONGINGS/ADVANCED DIRECTIVES Other Belongings: see valuable consents (10/24/2016 00:54:Martha Laughlin RN) Disposition of Belongings: Kept with Patient (10/24/2016 00:54:Martha Laughlin RN) Advance Direct for Healthcare: No, and Wants No Information (10/24/2016 00:54:Martha Laughlin RN) Durable Power of Senior Site Manager: No (10/24/2016 00:54:Martha Laughlin RN) Living Will: No (10/24/2016 00:54:Martha Laughlin RN) Organ Donor: Yes (10/24/2016 00:54:Martha Laughlin RN) Pt Rights Information Given: Yes (10/24/2016 00:54:Martha Laughlin RN) Pt Understands Pt Rights: Yes (10/24/2016 00:54:Martha Laughlin RN) Patient Rights Comments: Given in patient access (10/24/2016 00:54:Martha Laughlin RN) LEARNING ASSESSMENT Knowledge Level: Understands L_D Process; Understands Care Activities; Had Pre-Hospital Education; Understands Diagnosis (10/24/2016 00:54:Martha Laughlin RN) Barriers to Learning: Pain (10/24/2016 00:54:Martha Laughlin RN) Learning Readiness: Motivated (10/24/2016 00:54:Martha Laughlin RN) Learns Best By: 1 to 1 Instruction; Reading; Videos; Group Discussion; Demonstration (10/24/2016 00:54:Martha Laughlin RN) Learning Needs: Labor and Delivery Process; Pain Management; Symptoms to Report; Treatment Plan; Medication; Diagnosis; Nutrition; Equipment; Care; Community Resources (10/24/2016 00:54:Martha Laughlin RN) DOMESTIC VIOLANCE SCREENING Dom Viol Threatened/Hurt: No (10/24/2016 00:54:Martha Laughlin RN) Hx of Abuse/Neglect past 2yrs: No (10/24/2016 00:54:Martha Laughlin RN) Feel Unsafe Going Home: No (10/24/2016 00:54:Martha Laughlin RN) Addt'l Observ Indicating Abuse: No (10/24/2016 00:54:Martha Laughlin RN) Reason Unable to Complete Screen: No Opportunity to Talk Privately (10/24/2016 00:54:Martha Laughlin RN) Considered Personal Harm/Suicide: No (10/24/2016 00:54:Martha Laughlin RN) NUTRITIONAL/FUNCTIONAL SCREENING Problem with Appetite >5 Days: No (10/24/2016 00:54:Martha Laughlin RN) Chew/Swallow Difficulties: No (10/24/2016 00:54:Martha Laughlin RN) Inappropriate Wt Gain/Loss: No (10/24/2016 00:54:Martha Laughlin RN) Presence Skin Breakdown/Ulcer: No (10/24/2016 00:54:Martha Laughlin RN) Special Diet: No (10/24/2016 00:54:Martha Laughlin RN) Pt Requests Medical Technicians Visit: No (10/24/2016 00:54:Martha Laughlin RN) Hx of Any of the Following?: N/A (10/24/2016 00:54:Martha Laughlin RN) New Diagnosis of: N/A (10/24/2016 00:54:Martha Laughlin RN) Requires Assist w/Ambulation: No (10/24/2016 00:54:Martha Laughlin RN) Uses Assist Device to Ambulate: No (10/24/2016 00:54:Martha Laughlin RN) Pt Requires Help w/ADL's: No (10/24/2016 00:54:Martha Laughlin RN)
--- NOTE | 2016-10-31 06:23 | L&D Current Admission ---
Current Admit Datetime Report Generated by CPN: 10/31/2016 06:00 ADMISSION INFORMATION Current Admit Date/Time: 10/24/2016 00:54 (10/24/2016 00:54:Martha Laughlin RN) Reason for Admission: Rupture of Membranes (10/24/2016 00:54:Martha Laughlin RN) Other Reason for Admission: [place]/Di twins vertex/vertex SROM @ 2330 (10/24/2016 00:54:Martha Laughlin RN) Chief Complaint: Suspected Rupture of Membranes (10/24/2016 00:54:Martha Laughlin RN) Medications During : Ferrous Sulfate (Iron); Vitamin; Acetaminophen (Tylenol) (10/24/2016 00:54:Martha Laughlin RN) EGA per Dates: 35.4 (10/24/2016 00:54:QS system process) Method of Arrival: Wheelchair (10/24/2016 00:54:Martha Laughlin RN) Admitted From: Home (10/24/2016 00:54:Martha Laughlin RN) Reason for Induction: Not Applicable (10/24/2016 00:54:Martha Laughlin RN) Records Available: Yes (10/24/2016 00:54:Martha Laughlin RN) General Admission Information: Reviewed (10/24/2016 00:54:Martha Laughlin RN) General Admission Reviewed By: CAMRON Laughlin (10/24/2016 00:54:Martha Laughlin RN) BELONGINGS/ADVANCED DIRECTIVES Other Belongings: see valuable consents (10/24/2016 00:54:Martha Laughlin RN) Disposition of Belongings: Kept with Patient (10/24/2016 00:54:Martha Laughlin RN) Advance Direct for Healthcare: No, and Wants No Information (10/24/2016 00:54:Martha Laughlin RN) Durable Power of Waste Cotton Cleaner: No (10/24/2016 00:54:Martha Laughlin RN) Living Will: No (10/24/2016 00:54:Martha Laughlin RN) Organ Donor: Yes (10/24/2016 00:54:Martha Laughlin RN) Pt Rights Information Given: Yes (10/24/2016 00:54:Martha Laughlin RN) Pt Understands Pt Rights: Yes (10/24/2016 00:54:aMrtha Laughlin RN) Patient Rights Comments: Given in patient access (10/24/2016 00:54:Martha Laughlin RN) LEARNING ASSESSMENT Knowledge Level: Understands L_D Process; Understands Care Activities; Had Pre-Hospital Education; Understands Diagnosis (10/24/2016 00:54:Martha Laughlin RN) Barriers to Learning: Pain (10/24/2016 00:54:Martha Laughlin RN) Learning Readiness: Motivated (10/24/2016 00:54:Martha Laughlin RN) Learns Best By: 1 to 1 Instruction; Reading; Videos; Group Discussion; Demonstration (10/24/2016 00:54:Martha Laughlin RN) Learning Needs: Labor and Delivery Process; Pain Management; Symptoms to Report; Treatment Plan; Medication; Diagnosis; Nutrition; Equipment; Care; Community Resources (10/24/2016 00:54:Martha Laughlin RN) DOMESTIC VIOLANCE SCREENING Dom Viol Threatened/Hurt: No (10/24/2016 00:54:Martha Laughlin RN) Hx of Abuse/Neglect past 2yrs: No (10/24/2016 00:54:Martha Laughlin RN) Feel Unsafe Going Home: No (10/24/2016 00:54:Martha Laughlin RN) Addt'l Observ Indicating Abuse: No (10/24/2016 00:54:Martha Laughlin RN) Reason Unable to Complete Screen: No Opportunity to Talk Privately (10/24/2016 00:54:Martha Laughlin RN) Considered Personal Harm/Suicide: No (10/24/2016 00:54:Martha Laughlin RN) NUTRITIONAL/FUNCTIONAL SCREENING Problem with Appetite >5 Days: No (10/24/2016 00:54:Martha Laughlin RN) Chew/Swallow Difficulties: No (10/24/2016 00:54:Martha Laughlin RN) Inappropriate Wt Gain/Loss: No (10/24/2016 00:54:Martha Laughlin RN) Presence Skin Breakdown/Ulcer: No (10/24/2016 00:54:Martha Laughlin RN) Special Diet: No (10/24/2016 00:54:Martha Laughlin RN) Pt Requests Hammer Shop Supervisor Visit: No (10/24/2016 00:54:Martha Laughlin RN) Hx of Any of the Following?: N/A (10/24/2016 00:54:Martha Laughlin RN) New Diagnosis of: N/A (10/24/2016 00:54:Martha Laughlin RN) Requires Assist w/Ambulation: No (10/24/2016 00:54:Martha Laughlin RN) Uses Assist Device to Ambulate: No (10/24/2016 00:54:Martha Laughlin RN) Pt Requires Help w/ADL's: No (10/24/2016 00:54:Martha Laughlin RN)
--- NOTE | 2016-10-31 06:23 | L&D General Admission ---
General Admit Datetime Report Generated by CPN: 10/31/2016 06:00 INFORMATION Patient Age: 20 (10/07/2016 14:36:QS system process) EDC: 11/24/2016 00:00 (10/07/2016 14:46:Nilam Cary RN) : 2 (10/07/2016 14:46:Melisa De Leon RN) Para: 1 (10/20/2016 15:52:ANITA Granda) Term: 1 (10/07/2016 14:46:ANITA Granda) : 0 (10/07/2016 14:46:ANITA Granda) Spontaneous Abortions: 0 (10/07/2016 14:46:ANITA Granda) Induced Abortions: 0 (10/07/2016 14:46:ANITA Granda) Livin (10/07/2016 14:46:ANITA Granda) Cesareans: 0 (10/07/2016 14:46:ANITA Granda) VBACs: 0 (10/07/2016 14:46:Yenifer Dawkins [facility]) Ectopic: 0 (10/07/2016 [facility]) Baby, Number in Womb: 2 (10/20/2016 15:52:Yenifer Dawkins [facility]) CARE 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 [employer] 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: [facility] (10/07/2016 14:46:Yenifer Dawkins [facility]) Oil 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: Health Department (10/07/2016 14:46:Martha Laughlin RN) Adequate Care: No (10/07/2016 14:46:Martha Laughlin RN) Prepregnancy Weight (lb): 130 (10/07/2016 14:46:Martha Laughlin RN) Prepregnancy Weight (kg): 59.1 (10/07/2016 14:46:QS system process) Height (in): 68 (10/26/2016 11:40:QS system process) ALLERGIES Medication Allergy: No (10/07/2016 14:46:Martha Laughlin RN) Medication Allergies: No Known Allergies (10/24/2016) (10/24/2016 03:41:QS system process) Latex Allergy: No Latex Allergies (10/07/2016 14:46:Martha Laughlin RN) Food Allergies: denies (10/07/2016 14:46:Martha Laughlin RN) Environmental Allergies: denies (10/07/2016 14:46:Martha Laughlin RN) COMMUNICATION Primary Language: Canadian (10/07/2016 14:46:Martha Laughlin RN) Medical Tx Preferred Language: Canadian (10/07/2016 14:46:Martha Laughlin RN) Canadian Communication Ability: Speaks Canadian; Reads Canadian (10/07/2016 14:46:Martha Laughlin RN) Communication Barrier(s): None (10/07/2016 14:46:Martha Laughlin RN) DEMOGRAPHICS Address: [address] [place] [id number] (10/07/2016 14:36:QS system process) Zipcode: [address] (10/07/2016 14:36:QS system process) Home (10/07/2016 14:36:QS system process) N: [id number] (10/07/2016 14:36:QS system process) Next of Kin Name: TIRSO MEJIA (10/07/2016 14:36:QS system process) Next of Kin (10/07/2016 14:36:QS system process) Next of Kin Relationship: [place] (10/07/2016 14:36:QS system process) Date of : 1995 (10/07/2016 14:36:QS system process) Marital Status: Single (10/07/2016 14:36:QS system process) Sex: Female (10/07/2016 14:36:QS system process) Race: (10/07/2016 14:36:QS system process) Ethnicity: Non- or (10/07/2016 14:36:QS system process) Lutheran: None (10/07/2016 14:36:QS system process) DRUG AND ALCOHOL USE Alcohol: No (10/07/2016 14:46:Martha Laughlin RN) Cigarettes: Former Smoker. [id number] (10/07/2016 14:46:Martha Laughlin RN) Marijuana: No (10/07/2016 14:46:Martha Laughlin RN) Cocaine: No (10/07/2016 14:46:Martha Laughlin RN) Other Illicit Drugs: No (10/07/2016 14:46:Martha Laughlin RN) VACCINE HISTORY Influenza Vaccine: Yes (10/07/2016 14:46:Martha Laughlin RN) Influenza Date: 2015 (10/07/2016 14:46:Martha Laughlin RN) Pneumococcal Vaccine: No (10/07/2016 14:46:Martha Laughlin RN) Tetanus Vaccine: Uncertain (10/07/2016 14:46:Martha Laughlin RN) Tdap Vaccine: Uncertain (10/07/2016 14:46:Martha Laughlin RN) Hepatitis B Vaccine: Yes (10/07/2016 14:46:Martha Laughlin RN) Front Of House Manager: [facility] (10/07/2016 14:46:Martha Laughlin RN) Feeding Preference: Breast (10/07/2016 14:46:Martha Laughlin RN) Benefit of Breast Feed Discussed: Yes (10/07/2016 14:46:Martha Laughlin RN) Circumcision: Yes (10/07/2016 14:46:Martha Laughlin RN) Classes Attended: No (10/07/2016 14:46:Martha Laughlin RN) Tubal Ligation: No (10/07/2016 14:46:Martha Laughlin RN) Tubal Authorization Signed: N/A (10/07/2016 14:46:Martha Laughlin RN) Consent: N/A (10/07/2016 14:46:Martha Laughlin RN) Consent Signed: N/A (10/07/2016 14:46:Martha Laughlin RN) Pain Management Plans: Epidural (10/07/2016 14:46:Martha Laughlin RN) Plans for Labor and Delivery: None (10/07/2016 14:46:Martha Laughlin RN) Support Person: (10/07/2016 14:46:Martha Laughlin RN) Support Person Relationship: (10/07/2016 14:46:Martha Laughlin RN) Cultural/Spritual Practice: No (10/07/2016 14:46:Martha Laughlin RN) Spir/Cult Dietary Needs: No (10/07/2016 14:46:Martha Laughlin RN) LIVING SITUATION/DISCHARGE PLAN Living Arrangements: House (10/07/2016 14:46:Martha Laughlin RN) Adequate Access to:: Electric; Heat; Refrigeration; Plumbing/Running water; Phone; Transportation (10/07/2016 14:46:Martha Laughlin RN) Discharge Chronic Disease Epidemiologist Person: (10/07/2016 14:46:Martha Laughlin RN) Person to Help after Discharge: Sir (10/07/2016 14:46:Martha Laughlin RN) Currently Using Commun Resources: Yes (10/07/2016 14:46:Martha Laughlin RN) Specify Current Resource Used: medicaid (10/07/2016 14:46:Martha Laughlin RN) Outside Agency/Tablet Technician: No (10/07/2016 14:46:Martha Laughlin RN) Car Seat for Discharge: Yes (10/07/2016 14:46:Martha Laughlin RN) Adoption Requested: No (10/07/2016 14:46:Martha Laughlin RN) Pt Contact w/infant Post : N/A (10/07/2016 14:46:Martha Laughlin RN) LABS Blood Type: O Positive (10/07/2016 14:46:Nilam Cary RN) Antibody Screen: negative (10/07/2016 14:46:Nilam Cary RN) Hemoglobin: 8.4 L (10/25/2016 06:59:QS system process) Hematocrit: 25.6 L (10/25/2016 06:59:QS system process) MCV: 79 L (10/25/2016 06:59:QS system process) Group Beta Strep: unknown (10/07/2016 14:46:Martha Laughlin RN) Gonorrhea: Negative (10/07/2016 14:46:Nilam Cary RN) Chlamydia: Negative (10/07/2016 14:46:Nilam Cary RN) RPR/VDRL: Nonreactive (10/07/2016 14:46:Nilam Cary RN) HIV Results: nonreactive (10/07/2016 14:46:Nilam Cary RN) Rubella: Non-Immune (10/07/2016 14:46:Nilam Cary RN) Varicella: Susceptible (10/07/2016 14:46:Nilam Cary RN) OB/PREVIOUS HISTORY Previous Procedures: Ultrasound; NST (10/07/2016 14:46:Martha Laughlin RN) Current Procedures: Ultrasound; NST (10/07/2016 14:46:Martha Laughlin RN) History of Previous : No (10/07/2016 14:46:Martha Laughlin RN) History of Gestational Diabetes: No (10/07/2016 14:46:Martha Laughlin RN) History of PIH: No (10/07/2016 14:46:Martha Laughlin RN) History of Incompetent Cervix: No (10/07/2016 14:46:Martha Laughlin RN) History of Placenta Previa/Abrup: No (10/07/2016 14:46:Martha Laughlin RN) History of Macrosomia: No (10/07/2016 14:46:Martha Laughlin RN) History of IUGR: No (10/07/2016 14:46:Martha Laughlin RN) History of Hemorrhage: No (10/07/2016 14:46:Martha Laughlin RN) History of Loss/Stillborn: No (10/07/2016 14:46:Martha Laughlin RN) History of : No (10/07/2016 14:46:Martha Laughlin RN) History of D (Rh) Sensitization: No (10/07/2016 14:46:Martha Laughlin RN) History Recurrent Loss/Stillborn: No (10/07/2016 14:46:Martha Laughlin RN) History Depression/PP Depression: No (10/07/2016 14:46:Martha Laughlin RN) History of Uterine Anomaly/KIRA: No (10/07/2016 14:46:Martha Laughlin RN) History of Infertility: No (10/07/2016 14:46:Martha Laughlin RN) History of ART Treatment: No (10/07/2016 14:46:Martha Laughlin RN) History of KIRA: No (10/07/2016 14:46:Martha Laughlin RN) Comments Obstetrical History: g1-Jul 2015, female, , precipitous delivery @ 37 weeks, one hour in labor, received iron transfusions g2- current , mono/di twins, PROM/PTL @ 35+4 weeks gestation (10/07/2016 14:46:Martha Laughlin RN) MEDICAL HISTORY Med Hx Diabetes: No (10/07/2016 14:46:Martha Laughlin RN) Med Hx Hypertension: No (10/07/2016 14:46:Martha Laughlin RN) Med Hx Heart Disease: No (10/07/2016 14:46:Martha Laughlin RN) Med Hx Autoimmune Disorder: No (10/07/2016 14:46:Martha Laughlin RN) Med Hx Kidney Disease/UTI: No (10/07/2016 14:46:Martha Laughlin RN) Med Hx Neurologic/Epilepsy: No (10/07/2016 14:46:Martha Laughlin RN) Med Hx Psychiatric Disorders: No (10/07/2016 14:46:Martha Laughlin RN) Med Hx Hepatitis/Liver Disease: No (10/07/2016 14:46:Martha Laughlin RN) Med Hx Varicosities/Phlebitis: No (10/07/2016 14:46:Martha Laughlin RN) Med Hx Thyroid Dysfunction: No (10/07/2016 14:46:Martha Laughlin RN) Med Hx Trauma/Violence: No (10/07/2016 14:46:Martha Laughlin RN) Med Hx Blood Transfusion: No (10/07/2016 14:46:Martha Laughlin RN) Med Hx Pulmonary (Asthma,TB): No (10/07/2016 14:46:Martha Laughlin RN) Med Hx Breast: No (10/07/2016 14:46:Martha Laughlin RN) Med Hx DRY END TESTER Surgery: No (10/07/2016 14:46:Martha Laughlin RN) Med Hx Hospitalization/Surgery: Yes (10/07/2016 14:46:Martha Laughlin RN) Med Hx Anesthetic Complications: No (10/07/2016 14:46:Martha Laughlin RN) Med Hx Abnormal Pap Smear: No (10/07/2016 14:46:Martha Laughlin RN) Other Medical Diseases: Yes (10/07/2016 14:46:Martha Laughlin RN) Med Hx Significant Family Hx: No (10/07/2016 14:46:Martha Laughlin RN) Details of Med/Surg Hx: anemia received iron transfusion post delivery, x 1, with twins, (10/07/2016 14:46:Martha Laughlin RN) INFECTIOUS HISTORY Inf Hx Gonorrhea: No (10/07/2016 14:46:Martha Laughlin RN) Inf Hx Chlamydia: No (10/07/2016 14:46:Martha Laughlin RN) Inf Hx Syphilis: No (10/07/2016 14:46:Martha Laughlin RN) Inf Hx HIV/AIDS: No (10/07/2016 14:46:Martha Laughlin RN) Inf Hx Human Papilloma Virus: No (10/07/2016 14:46:Martha Laughlin RN) Inf Hx Pt/Partner Genital Herpes: No (10/07/2016 14:46:Martha Laughlin RN) Inf Hx Tuberculosis/Exposure: No (10/07/2016 14:46:Martha Laughlin RN) Inf Hx Hepatitis B,C: No (10/07/2016 14:46:Martha Laughlin RN) Inf Hx Rash or Viral Illness: No (10/07/2016 14:46:Martha Laughlin RN) GENETIC HISTORY Gen Hx Age >=35 at AUDREY: No (10/07/2016 14:46:Martha Laughlin RN) Gen Hx Thalassemia: No (10/07/2016 14:46:Martha Laughlin RN) Gen Hx Congenital Heart Defect: No (10/07/2016 14:46:Martha Laughlin RN) Gen Hx Neural Tube Defect: No (10/07/2016 14:46:Martha Laughlin RN) Gen Hx Down's Syndrome: No (10/07/2016 14:46:Martha Laughlin RN) Gen Hx James-Sachs: No (10/07/2016 14:46:Martha Laughlin RN) Gen Hx Richard: No (10/07/2016 14:46:Martha Laughlin RN) Gen Hx Familial Dysautonomia: No (10/07/2016 14:46:Martha Laughlin RN) Gen Hx Sickle Cell Disease/Trait: No (10/07/2016 14:46:Martha Laughlin RN) Gen Hx Hemophilia/Blood Disorder: No (10/07/2016 14:46:Martha Laughlin RN) Gen Hx Muscular Dystrophy: No (10/07/2016 14:46:Martha Laughlin RN) Gen Hx Cystic Fibrosis: No (10/07/2016 14:46:Martha Laughlin RN) Gen Hx Huntingtons Chorea: No (10/07/2016 14:46:Martha Laughlin RN) Gen Hx Mental Retardation/Autism: No (10/07/2016 14:46:Martha Laughlin RN) Gen Hx Tested for Fragile X: No (10/07/2016 14:46:Martha Laughlin RN) Gen Hx Other Inher/Chromosomal: No (10/07/2016 14:46:Martha Laughlin RN) Gen Hx Maternal Metabolic DO: No (10/07/2016 14:46:Marhta Laughlin RN) Gen Hx Pt Father or FOB Defect: No (10/07/2016 14:46:Martha Laughlin RN) Gen Hx Other Genetic History: No (10/07/2016 14:46:Martha Laughlin RN) Gen Hx Drugs/Meds since LMP: Yes (10/07/2016 14:46:Martha Laughlin RN) Gen Hx Medications: tylenol, vitamins, iron (10/07/2016 14:46:Martha Laughlin RN)
== END 2016-10-26 12:45 | disposition home or self-care (01) | DRG 775 ==
LOC: LC 00:21 → LR 00:47 → 2S 04:30
PROVIDERS: ADMIT Obstetrics & Gynecology; ATTEND Obstetrics & Gynecology
PROC: 10E0XZZ Delivery of Products of Conception, External Approach (ICD-10-PCS; principal; 2016-10-24)
PROC: 3E0234Z Introduction of Serum, Toxoid and Vaccine into Muscle, Percutaneous Approach (ICD-10-PCS; 2016-10-26)
DX: O30.033 Twin pregnancy, monochorionic/diamniotic, third trimester (principal); D62 Acute posthemorrhagic anemia; O42.913 Preterm premature rupture of membranes, unspecified as to length of time between rupture and onset of labor, third trimester; O62.3 Precipitate labor; O76 Abnormality in fetal heart rate and rhythm complicating labor and delivery; O66.0 Obstructed labor due to shoulder dystocia; O99.02 Anemia complicating childbirth; Z3A.35 35 weeks gestation of pregnancy; Z37.2 Twins, both liveborn; Z23 Encounter for immunization
CPT/HCPCS: 36415; 59025; 80307; 81001; 85025; 85027; 86592; 86850; 86900; 86901; 88307; 90715; 94760; J2540; J2590; J3490